=== PATIENT | female | born 1950 | race American Indian/Alaskan Native ===

== ENCOUNTER 2018-11-19 12:27 | Outpatient (CLI) | payer MEDICARE | END 2018-11-19 12:28 | disposition home or self-care (01) | LOC: LAB 12:27 ==

== ENCOUNTER 2019-01-06 17:01 | Observation (INO) | payer MEDICARE ==
[2019-01-06 17:01] VITALS: BMI 36.8
[2019-01-06 18:09] LABS: BASO # 0.01 K/mm3 (0.0-2.0); BASO % 0.1 % (0.0-3.0); EOS # 0.2 (0.0-0.7); EOS % 3.3 % (1.5-5.0); HEMOGLOBIN 9.6 g/dL (12.0-16.0); LYMPH # 1.5 (1.2-3.4); LYMPH % 22.9 % (22.0-35.0); MEAN CELL VOLUME 89.6 fl (80.0-105.0); MEAN CORPUSCULAR HEMOGLOBIN 27.8 pg (25.0-35.0); MEAN CORPUSCULAR HGB CONC 31.1 g/dl (31.0-37.0); MEAN PLATELET VOLUME 10.4 fl (7.0-11.0); MONO # 0.4 (0.1-0.6); RBC 3.45 10^6/uL (3.5-6.1); RED CELL DISTRIBUTION WIDTH 17.6 % (11.5-14.5); WHITE BLOOD COUNT 6.7 10^3/uL (4.5-11.0)
[2019-01-06 18:16] LABS: INR 1.1; PARTIAL THROMBOPLASTIN TIME 35.1 Seconds (26.9-38.3); PROTHROMBIN TIME 12.2 SECONDS (9.4-12.5)
[2019-01-06 18:18] LABS: ALB/GLOB RATIO 0.9 (1.1-1.8); ALBUMIN 3.6 g/dL (3.0-4.8); AST/SGOT 32 U/L (14-36); BLOOD UREA NITROGEN 37 mg/dL (7-21); CALCIUM 9.6 mg/dL (8.4-10.5); GFR NON-AFRICAN AMERICAN 26
[2019-01-06 18:30] LABS: ALT/SGPT < 6 U/L (7-56); B-TYPE NATRIURETIC PEPTIDE 749 pg/mL (0-450); TROPONIN I 0.02 ng/mL
[2019-01-06 18:52] LABS: URINE BILIRUBIN NEGATIVE (NEGATIVE); URINE BLOOD NEGATIVE (NEGATIVE); URINE GLUCOSE (UA) NEGATIVE (NEGATIVE); URINE LEUKOCYTE ESTERASE NEGATIVE Leu/uL (NEGATIVE); URINE PROTEIN 100 mg/dL (<30 mg/dL); URINE UROBILINOGEN 0.2 E.U./dL (<1 E.U./dL)
[2019-01-06 18:53] LABS: URINE APPEARANCE CLEAR (CLEAR); URINE COLOR LIGHT YELLOW (YELLOW)
[2019-01-06 19:12] LABS: URINE RBC 0 - 2 /hpf (0-2)
[2019-01-06 19:13] LABS: URINE BACTERIA TRACE /hpf
--- NOTE | 2019-01-06 20:29 | ED PDOC ---
Arrival/HPI - General Chief Complaint: Abnormal Labs Time Seen by Provider: 01/06/19 17:09 Historian: Patient - History of Present Illness Narrative History of Present Illness (Text): 01/06/19 20:26 68-year-old female with a history of stroke one month ago presents today sent in by a tiarra for elevated troponins. Patient states she the past 3 days she's been having some intermittent and chest pressure no abdominal pain. No nausea vomiting diarrhea or constipation. Patient denies headaches or dizziness. Patient denies any chest pain at present time. Past Medical History - Provider Review Nursing Documentation Reviewed: Yes - Travel History Have you recently traveled outside [place] w/in the past 3 mons?: No - Infectious Disease Hx of Infectious Diseases: None - Tetanus Immunization Tetanus Immunization: Unknown - Reproductive Menopause: Yes - Cardiac Hx Hypertension: Yes Hx Peripheral Edema: Yes (+2 ble pitting) - Pulmonary Hx Asthma: Yes Hx Chronic Obstructive Pulmonary Disease (COPD): Yes Hx Pneumonia: Yes (11 yrs ago) Hx Sleep Apnea: Yes (cpap) - Neurological Hx Seizures: Yes (LAST AGE 19) Hx Transient Ischemic Attacks (TIA): Yes (02/2016 No hospitilization) - HEENT Hx HEENT Disorder: Yes (USING READING GLASSES) 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], RIGHT EYE PARTIAL BLIND) - Renal Hx Renal Disorder: Yes - Endocrine/Metabolic Hx Hyperthyroidism: No - Hematological/Oncological Hx Anemia: Yes (Blood transfusion 2014) - Integumentary Hx Dermatological Disorder: No - Musculoskeletal/Rheumatological Hx Arthritis: Yes - Gastrointestinal Hx Gastrointestinal Ulcer: No - Psychiatric Hx Anxiety: Yes Hx Depression: Yes Hx Substance Use: No - Surgical History Hx Coronary Stent: Yes - Anesthesia Hx Anesthesia: Yes Hx Anesthesia Reactions: No Hx Malignant Hyperthermia: No - Suicidal Assessment Feels Threatened In Home Enviroment: No Family/Social History - Physician Review Nursing Documentation Reviewed: Yes Family/Social History: Unknown Family HX Smoking Status: Never Smoked Hx Alcohol Use: No Hx Substance Use: No Allergies/Home Meds Allergies/Adverse Reactions: Allergies levofloxacin [From Levaquin] Allergy (Verified 01/06/19 17:14) RASH shellfish derived Allergy (Verified 01/06/19 17:14) RASH morphine Adverse Reaction (Intermediate, Verified 01/06/19 17:14) FATIGUE Confirmed with patient, never had allergic reaction, felt unwell/fatigued after large dose of morphine Home Medications: Home Meds Medication Instructions Recorded Confirmed Folic Acid 1 mg GT DAILY 08/22/17 01/06/19 Linagliptin [Tradjenta] 5 mg GT DAILY 08/22/17 01/06/19 traMADol [Ultram] 1 tab GT PRN PRN 06/29/18 01/06/19 Valsartan [Diovan] 80 mg GT DAILY 09/17/18 01/06/19 Acetaminophen [Tylenol] 650 mg GT PRN 01/06/19 01/06/19 Aspirin [Aspirin EC] 81 mg GT DAILY 01/06/19 01/06/19 Atorvastatin Calcium 80 mg GT DAILY 01/06/19 01/06/19 Carvedilol [Coreg] 25 mg GT BID 01/06/19 01/06/19 Febuxostat [Uloric] 40 mg GT DAILY 01/06/19 01/06/19 Heparin [Heparin (RENAL)] 5,000 units SC Q8 01/06/19 01/06/19 Heparin [Heparin (RENAL)] 5,000 units SC Q8 01/06/19 01/06/19 Insulin Lispro [humALOG] 01/06/19 Isosorbide Mononitrate [Ismo] 20 mg GT TID 01/06/19 01/06/19 Lactobacillus Acidophilus 1 tab GT Q12 01/06/19 01/06/19 [Lactobacillus] Loperamide [Loperamide HCl] 2 mg GT PRN 01/06/19 01/06/19 Magnesium Hydroxide [Milk Of 400 mg GT PRN 01/06/19 01/06/19 Magnesia] Mylanta 01/06/19 NIFEdipine [Procardia] 40 mg GT Q6 01/06/19 01/06/19 Naphazoline/Pheniramine Opht 2 drop OU PRN 01/06/19 01/06/19 [Naphcon-A 0.025%-0.3% 15 Ml] Pantoprazole [Protonix] 40 mg GT DAILY 01/06/19 01/06/19 cloNIDine [Catapres] 0.1 mg GT DAILY 01/06/19 01/06/19 hydrALAZINE [Apresoline] 100 mg GT Q8 01/06/19 01/06/19 Review of Systems - Review of Systems Constitutional: absent: Fatigue, Fevers Respiratory: absent: SOB, Cough Cardiovascular: Chest Pain. absent: Palpitations Gastrointestinal: absent: Abdominal Pain, Constipation, Diarrhea, Nausea, Vomiting Musculoskeletal: absent: Back Pain, Neck Pain Skin: absent: Rash, Pruritis Neurological: absent: Headache, Dizziness Psychiatric: absent: Anxiety, Depression Physical Exam Vital Signs Reviewed: Yes Vital Signs Temp Pulse Resp BP Pulse Ox 01/06/19 18:32 83 20 192/94 H 100 01/06/19 17:02 97.9 F 85 20 202/96 H 100 Temperature: Afebrile Blood Pressure: Hypertensive Pulse: Regular Respiratory Rate: Normal Appearance: Positive for: Well-Appearing, Non-Toxic, Comfortable Pain Distress: None Mental Status: Positive for: Alert and Oriented X 3 - Systems Exam Head: Present: Atraumatic Mouth: Present: Moist Mucous Membranes Respiratory/Chest: Present: Clear to Auscultation Cardiovascular: Present: Regular Rate and Rhythm Abdomen: No: Tenderness, Distention, Rebound, Guarding Upper Extremity: Present: Normal ROM Lower Extremity: Present: Normal ROM. No: Tenderness Neurological: Present: GCS=15 Skin: Present: Warm, Dry, Normal Color Psychiatric: Present: Alert, Oriented x 3 Medical Decision Making ED Course and Treatment: 01/06/19 23:01 68yr old female sent in for chest painx 3 days. denies cp currently. cbc; hcg; 9.6 cmp: bun 37 cr: 1.9 trop; 0.02 bnp; 749 ekg' normal sinus rhythm at 84 bpm normal axis no ST elevations QTC 420 cxr; no infiltrate. pt given 10mg hydralizine ivp for hypertension asa given via PEG tylenol given via PEG case discussed with dr. klein. accepts observational status admission for cp. all results discussed with patient and her sister at bedside. impression: chest pain admit tele obs. - Lab Interpretations Lab Results: PT 12.2 SECONDS (9.4-12.5) 01/06/19 17:45 INR 1.10 01/06/19 17:45 APTT 35.1 Seconds (26.9-38.3) 01/06/19 17:45 Troponin I 0.02 ng/mL 01/06/19 17:45 NT-Pro-B Natriuret Pep 749 pg/mL (0-450) H 01/06/19 17:45 Total Bilirubin 0.2 mg/dL (0.2-1.3) 01/06/19 17:45 AST 32 U/L (14-36) 01/06/19 17:45 ALT < 6 U/L (7-56) L 01/06/19 17:45 Alkaline Phosphatase 127 U/L (38-126) H D 01/06/19 17:45 Total Protein 7.5 g/dL (5.8-8.3) 01/06/19 17:45 Albumin 3.6 g/dL (3.0-4.8) 01/06/19 17:45 Globulin 3.8 gm/dL 01/06/19 17:45 Albumin/Globulin Ratio 0.9 (1.1-1.8) L 01/06/19 17:45 Urine Color Light yellow (YELLOW) 01/06/19 18:30 Urine Appearance Clear (CLEAR) 01/06/19 18:30 Urine pH 8.0 (4.7-8.0) 01/06/19 18:30 Ur Specific [place] 1.025 (1.005-1.035) 01/06/19 18:30 Urine Protein 100 mg/dL (<30 mg/dL) H 01/06/19 18:30 Urine Glucose (UA) Negative mg/dL (NEGATIVE) 01/06/19 18:30 Urine Ketones Negative mg/dL (NEGATIVE) 01/06/19 18:30 Urine Blood Negative (NEGATIVE) 01/06/19 18:30 Urine Nitrate Negative (NEGATIVE) 01/06/19 18:30 Urine Bilirubin Negative (NEGATIVE) 01/06/19 18:30 Urine Urobilinogen 0.2 E.U./dL (<1 E.U./dL) 01/06/19 18:30 Ur Leukocyte Esterase Negative [place]/uL (NEGATIVE) 01/06/19 18:30 Urine RBC 0 - 2 /hpf (0-2) 01/06/19 18:30 Urine WBC 1 - 3 /hpf (0-6) 01/06/19 18:30 Ur Epithelial Cells 1 - 3 /hpf (0-5) 01/06/19 18:30 Urine Bacteria Trace /hpf (NONE) 01/06/19 18:30 Urine Other Uyeast /hpf 01/06/19 18:30 - RAD Interpretation Radiology Orders: 01/06/19 17:15 CHEST PORTABLE [RAD] Stat - Medication Orders Current Medication Orders: Aspirin (Aspirin Supp) 300 mg RC STAT STA Stop: 01/06/19 20:23 Hydralazine HCl (Apresoline) 10 mg IVP STAT STEVE Disposition/Present on Arrival - Present on Arrival Any Indicators Present on Arrival: Yes History of DVT/PE: No History of Uncontrolled Diabetes: Yes Urinary Catheter: No History of Decub. Ulcer: No History Surgical Site Infection Following: None - Disposition Have Diagnosis and Disposition been Completed?: Yes Diagnosis: Chest pain, Renal insufficiency Disposition: HOSPITALIZED Disposition Time: 20:27 Patient Plan: Observation, Telemetry Condition: FAIR
--- NOTE | 2019-01-06 22:37 | CARD ---
APPROVED REPORT Date of service: 01/06/2019 EKG Measurement Heart [id number] <Conclusion> Normal sinus rhythm Septal infarct, age undetermined T wave abnormalities Abnormal ECG
--- NOTE | 2019-01-07 03:08 | HP ---
DATE OF EXAM: 01/06/2019 HISTORY OF PRESENT ILLNESS: I know Guera from [facility]. She had chest pain a few days ago, it came less than like 10 to 15 minutes, it was something new for her. I ordered troponin, just to make sure whether I am missing anything and I got a call that it was positive with 0.2, I sent her to the emergency room at [facility]. She is a 68-year-old female with history of stroke one month ago. She has been in [facility]. She has elevated troponins because she has some intermittent chest pain, nothing specific for the heart just right-sided chest pain. No nausea or vomiting. No sweating. She can move all extremities well, started to walk through the day. Not short of breath. 5 to 10 minutes and was on the right side. She has hypertension, peripheral edema with 2+ pitting edema. She has COPD, pneumonia 11 years ago. She has CPAP and sleep apnea, seizures, TIAs, and reading glasses. 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 FAMILY HISTORY: Unknown family history. SOCIAL HISTORY: No smoking. No drinking. No drugs. ALLERGIES: ALLERGIC TO LEVAQUIN, SHELLFISH, MORPHINE, SOME FOLIC ACID, TRADJENTA, ULTRAM, DIOVAN, TYLENOL, ASPIRIN, CALCIUM, COREG, ULORIC, HEPARIN, INSULIN, IMDUR, , IMODIUM NEEDED, MILK OF MAGNESIA, MYLANTA, PROCARDIA, F-CON, PROTONIX, CATAPRES, AND APRESOLINE. REVIEW OF SYSTEMS: She is not fatigued. No fever. No shortness of breath or cough. She did have chest pain, but none now. No palpitations. It was right-sided chest pain. No abdominal pain. No constipation, diarrhea, nausea, or vomiting. No back pain or neck pain. No itching. No rashes. No headache. No dizziness. No anxiety or depression. PHYSICAL EXAMINATION: GENERAL: She is well-appearing, nontoxic, comfortable at this time. Alert and oriented x3. Smiling. VITAL SIGNS: 97.9 temperature, 85 pulse, 20 respiratory rate, 202/96 blood pressure, and 100% O2 saturation. HEENT: Head is atraumatic and normocephalic. Teeth poor repair. Throat is moist. NECK: Supple. HEART: Regular rate. LUNGS: Decreased breath sounds, but clear. ABDOMEN: Soft. Positive feeding tube. EXTREMITIES: No edema. SKIN: Warm and dry. NEUROLOGIC: GCS is 15. Cranial nerves II through XII grossly intact. Alert and oriented x3. LYMPHS: Thyroid midline. No palpable appreciable lymphadenopathy. LABORATORY DATA: She had multiple tests done. White count 6.7, hemoglobin 9.6, hematocrit 38.9 with 399 platelets. INR is 1.1. Sodium 137, potassium 5.3, BUN 37, and creatinine 1.9. She is also little bit renal insufficient with magnesium of 2.3. AST is 32, ALT is 6, and alk phos 127. Lactate dehydrogenase is 596. Troponin I was 0.02 here. BNP was high at 749, so she has little bit of CHF with renal insufficiency. Urine was clean. Chest x-ray is pending. ASSESSMENT AND PLAN: She will be on observation of troponin every 8 hours x2 more and she will be back on her medications. Dr. Duque Cardiology consult. Hopefully, she will do well in the next 24 hours. She is here chest pain, CHF, and renal insufficiency. Mathieu Odell DO MTDD
[2019-01-07 06:56] VITALS: O2SAT 99
[2019-01-07 07:21] LABS: HEMOGLOBIN 9.2 g/dL (12.0-16.0); MEAN CORPUSCULAR HEMOGLOBIN 27.6 pg (25.0-35.0); MEAN CORPUSCULAR HGB CONC 30.4 g/dl (31.0-37.0); MEAN PLATELET VOLUME 10.9 fl (7.0-11.0); RBC 3.33 10^6/uL (3.5-6.1); RED CELL DISTRIBUTION WIDTH 17.4 % (11.5-14.5); WHITE BLOOD COUNT 6.1 10^3/uL (4.5-11.0)
[2019-01-07 07:43] LABS: TROPONIN I 0.03 ng/mL
[2019-01-07 07:45] LABS: ALB/GLOB RATIO 0.9 (1.1-1.8); ALBUMIN 3.4 g/dL (3.0-4.8); CALCIUM 9.8 mg/dL (8.4-10.5)
--- NOTE | 2019-01-07 08:10 | RAD ---
Date of service: 01/06/2019 HISTORY: abnl labs COMPARISON: 09/26/2018 FINDINGS: LUNGS: No active pulmonary disease. PLEURA: No significant pleural effusion identified, no pneumothorax apparent. CARDIOVASCULAR: Aortic tortuosity Mild cardiomegaly. No pulmonary vascular congestion. OSSEOUS STRUCTURES: No significant abnormalities. VISUALIZED UPPER ABDOMEN: Normal. OTHER FINDINGS: None. IMPRESSION: No active disease.
[2019-01-07] MEDS ORDERED: Non Formulary Medication (Valsartan [Diovan] 80 MG) GT SCH (10:00)
[2019-01-07 12:26] VITALS: BP 225/95
--- NOTE | 2019-01-07 12:45 | CON ---
DATE OF CONSULTATION: 01/07/2019 CARDIOLOGY CONSULTATION HISTORY: The patient is a 68-year-old woman, who presented with occasional chest discomfort. PAST MEDICAL HISTORY: The patient's past medical history is notable for accelerated hypertension, which has finally been controlled recently. The patient's cardiac status includes a PTCA and stent in the past. She underwent a stress test in March of this year, which was unremarkable. The stress test revealed normal SPECT myocardial study with an ejection fraction of 79%. She has suffered from renal insufficiency as well as a CVA and is currently in a residential facility. She currently is depressed, but is chest pain free. She denies shortness of breath. She also suffers from diabetes mellitus. SOCIAL HISTORY: The patient does not smoke. REVIEW OF SYSTEMS: Review of systems is dominated by her depression from her CVA. PHYSICAL EXAMINATION: VITAL SIGNS: Her blood pressure is 143/87, heart rate is in the 80s. NECK: Negative JVD. LUNGS: Without rales. CARDIAC: Heart rate S1, S2. EXTREMITIES: Without edema. LABORATORY DATA: EKG shows no acute changes. Laboratories include a hemoglobin of 9.2. Chemistries, BUN and creatinine of 32 and 2. Troponins are negative x3. IMPRESSION: 1. Atypical chest pain. 2. No evidence for acute coronary syndrome. 3. Recent stress test, which is unremarkable. 4. Coronary artery disease. 5. Accelerated hypertension. 6. History of coronary artery disease. 7. Renal insufficiency. 8. Diabetes mellitus. 9. Hypercholesterolemia. PLAN: Given these findings, there is no evidence for acute coronary syndrome. No further cardiac workup is necessary at this time. Austin Duque MD
[2019-01-07 12:57] VITALS: PULSE 82; RESP 18; TEMP 98.8
--- NOTE | 2019-01-07 23:40 | DS ---
HISTORY OF PRESENT ILLNESS: She came in with a history of 3 days ago having a chest pain that lasted 5 minutes on the right side and went away at the [facility]. No pressure. No sweating, just pain. We did a troponin, I get a call that it was positive from the laboratory and send her to the ER and right now the troponins are 0.02, 0.03, and 0.03. She has no chest pain right now. She is comfortable. LABORATORY DATA: She has sodium 139, potassium 4.8, BUN 32, creatinine 2, GFR is 25, sugar is 90, calcium is 9.8, and total bili is 0.2. AST is 23, ALT is 9, alk phos 117, and total protein 7.1. Urine was trace. INR is 1.1. White count 6.1, hemoglobin 9.2, hematocrit 30.3, and platelets of 395. She has a consult with Cardiology. I am hoping that we can discharge her back to [facility] where she is getting rehab, okay with Cardiology. She has no chest pain. troponins were normal. EKG did show an old infarct, but does have a history of stents placement and issues in the past. We will see what Dr. Duque, the brick handler has to say, but if okay, I will discharge her back to [facility] today. She was here for chest pain. Mathieu Odell DO MTDIsaac
== END 2019-01-07 14:06 ==
LOC: ED 17:01 → ERH 22:14 → 2RNO 23:58
PROVIDERS: ADMIT Family Medicine; ATTEND Family Medicine
DX: R07.89 Other chest pain (principal); I11.0 Hypertensive heart disease with heart failure; N28.9 Disorder of kidney and ureter, unspecified; D64.9 Anemia, unspecified; E11.9 Type 2 diabetes mellitus without complications; E78.00 Pure hypercholesterolemia, unspecified; G47.30 Sleep apnea, unspecified; H54.7 Unspecified visual loss; I25.10 Atherosclerotic heart disease of native coronary artery without angina pectoris; I50.9 Heart failure, unspecified; J44.9 Chronic obstructive pulmonary disease, unspecified; R56.9 Unspecified convulsions; Z86.73 Personal history of transient ischemic attack (TIA), and cerebral infarction without residual deficits; Z87.01 Personal history of pneumonia (recurrent); Z95.5 Presence of coronary angioplasty implant and graft; Z88.8 Allergy status to other drugs, medicaments and biological substances; Z88.6 Allergy status to analgesic agent; Z88.1 Allergy status to other antibiotic agents; Z88.5 Allergy status to narcotic agent; Z91.013 Allergy to seafood
CPT/HCPCS: 36415; 71045; 80053; 81001; 82550; 83615; 83735; 83880; 84484; 85025; 85027; 85610; 85730; 93005; 96372; 96374; 97162; C9113; G0378; G8978; G8979; J0360; J1644; J1940

== ENCOUNTER 2019-03-21 11:53 | Inpatient (IN) | payer MEDICARE ==
[2019-03-21 11:58] VITALS: BMI 33.5
--- NOTE | 2019-03-21 12:07 | ED PDOC ---
Arrival/HPI - General Time Seen by Provider: 03/21/19 11:56 Historian: [facility], EMS - History of Present Illness Narrative History of Present Illness (Text): 03/21/19 12:05 68 year old female, whose past medical history includes CVA, CAD, and diabetes, brought in by EMS from [facility] to the emergency department for fever. At [facility], patient was found to be febrile at 101.2F this morning. Patient was given Tylenol and temperature went down to 99F. According to EMS, patient was found to be comfortable and was immediately placed on supplemental oxygen via [place] and brought to the hospital. PCP:Dr. Odell Time/Duration: Prior to Arrival Symptom Onset: Sudden Symptom Course: Unchanged Quality: Unable to Describe Activities at Onset: Rest Context: Home, Other ([facility]) Past Medical History - Provider Review Nursing Documentation Reviewed: Yes - Travel History Have you recently traveled outside [place] w/in the past 3 mons?: No - Infectious Disease Hx of Infectious Diseases: None - Tetanus Immunization Tetanus Immunization: Unknown - Cardiac Hx Congestive Heart Failure: Yes - Pulmonary Hx Chronic Obstructive Pulmonary Disease (COPD): Yes - Neurological Hx Neurological Disorder: Yes Hx Alzheimer's Disease: No HX Cerebrovascular Accident: Yes Hx Dementia: No Hx Dizziness: No Hx Meningitis: No Hx Migraine: No Hx Parkinson's Disease: No Hx Seizures: No Hx Transient Ischemic Attacks (TIA): Yes - HEENT Hx HEENT Disorder: Yes Hx Blind: Yes ((L) eye) Hx Cataracts: No Hx Deafness: No Hx Difficulty Chewing: No Hx Glaucoma: No Hx Macular Degeneration: No - Renal Hx Renal Disorder: No Hx Dialysis: No Hx Kidney Stones: No Hx Neurogenic Bladder: No Hx Pyelonephritis: No Hx Renal Cancer: No Hx Renal Failure: No Other/Comment: right kidney mass removed - Endocrine/Metabolic Hx Endocrine Disorders: Yes Hx Adrenal Cancer: No Hx Diabetes Insipidus: No Hx Diabetes Mellitus Type 1: No Hx Diabetes Mellitus Type 2: Yes Hx Hyperthyroidism: No Hx Hypothyroidism: No Hx Systemic Lupus Erythematosus: No - Hematological/Oncological Hx Blood Disorders: No Hx AIDS: No Hx Anemia: No Hx Cancer: No Hx Chemotherapy: No Hx Cirrhosis: No Hx Hemophilia: No Hx Hepatitis A: No Hx Hepatitis B: No Hx Hepatitis C: No Hx Metastasis: No Hx Shingles: No Hx Sickle Cell Disease: No Hx Unexplained Bleeding: No - Integumentary Hx Dermatological Disorder: No Hx Basal Cell Carcinoma: No Hx Eczema: No Hx Melanoma: No Hx Psoriasis: No Hx Squamous Cell Carcinoma: No - Musculoskeletal/Rheumatological Hx Arthritis: Yes - Gastrointestinal Hx Gastrointestinal Disorders: Yes (PEG tube) Hx Colostomy: No Hx Crohn's Disease: No Hx Diverticulitis: No Hx Gall Bladder Disease: No Hx Gastroesophageal Reflux: No Hx Gastrointestinal Ulcer: No Hx Ileostomy: No Hx Liver Failure: No Hx Pancreatitis: No HX Swallowing Problems: No - Genitourinary/Gynecological Hx Genitourinary Disorders: Yes Hx Hematuria: No Hx Incontinence: Yes Hx Prostate Problems: No Hx Sexually Transmitted Diseases: No Hx Urinary Tract Infection: No - Psychiatric Hx Psychophysiologic Disorder: Yes Hx Anxiety: Yes Hx Bipolar Disorder: No Hx Depression: Yes Hx Emotional Abuse: No Hx Hallucinations: No Hx Panic Disorder: No Hx Paranoia: No Hx Post Traumatic Stress Disorder: No Hx Psychosis: No Hx Physical Abuse: No Hx Schizophrenia: No Hx Sexual Abuse: No Hx Substance Use: No - Surgical History Hx Amputation: No Hx Appendectomy: No Hx Cardiac Catheterization: Yes (2 stents) Hx Cholecystectomy: No Hx Coronary Stent: No Hx Gastric Bypass Surgery: No Hx Hysterectomy: Yes Hx Inguinal Hernia Repair: No Hx Joint Replacement: No Hx Kidney Transplant: No Hx Liver Transplant: No Hx Mastectomy: No Hx Musculoskeletal Surgery: No Hx Open Heart Surgery: No Hx Orthopedic Surgery: No Hx Splenectomy: No Hx Valve Replacement: No - Anesthesia Hx Anesthesia: Yes Hx Anesthesia Reactions: No Hx Malignant Hyperthermia: No - Suicidal Assessment Feels Threatened In Home Enviroment: No Family/Social History - Physician Review Nursing Documentation Reviewed: Yes Family/Social History: No Known Family HX Smoking Status: Never Smoked Hx Alcohol Use: No Hx Substance Use: No Allergies/Home Meds Allergies/Adverse Reactions: Allergies levofloxacin [From Levaquin] Allergy (Verified 03/21/19 11:58) RASH shellfish derived Allergy (Verified 03/21/19 11:58) RASH morphine Adverse Reaction (Intermediate, Verified 03/21/19 11:58) FATIGUE Confirmed with patient, never had allergic reaction, felt unwell/fatigued after large dose of morphine Home Medications: Home Meds Medication Instructions Recorded Confirmed Folic Acid 1 mg GT DAILY 08/22/17 01/06/19 Linagliptin [Tradjenta] 5 mg GT DAILY 08/22/17 01/06/19 traMADol [Ultram] 1 tab GT PRN PRN 06/29/18 01/06/19 Valsartan [Diovan] 80 mg GT DAILY 09/17/18 01/06/19 Acetaminophen [Tylenol] 650 mg GT PRN 01/06/19 01/06/19 Aspirin [Aspirin EC] 81 mg GT DAILY 01/06/19 01/06/19 Atorvastatin Calcium 80 mg GT DAILY 01/06/19 01/06/19 Carvedilol [Coreg] 25 mg GT BID 01/06/19 01/06/19 Febuxostat [Uloric] 40 mg GT DAILY 01/06/19 01/06/19 Heparin [Heparin (RENAL)] 5,000 units SC Q8 01/06/19 01/06/19 Heparin [Heparin (RENAL)] 5,000 units SC Q8 01/06/19 01/06/19 Insulin Lispro [humALOG] 01/06/19 Isosorbide Mononitrate [Ismo] 20 mg GT TID 01/06/19 01/06/19 Lactobacillus Acidophilus 1 tab GT Q12 01/06/19 01/06/19 [Lactobacillus] Loperamide [Imodium] 2 mg GT PRN 01/06/19 01/06/19 Magnesium Hydroxide [Milk Of 400 mg GT PRN 01/06/19 01/06/19 Magnesia] Mylanta 01/06/19 NIFEdipine [Procardia] 40 mg GT Q6 01/06/19 01/06/19 Naphazoline/Pheniramine Opht 2 drop OU PRN 01/06/19 01/06/19 [Naphcon-A Opht] Pantoprazole [Protonix EC Tab] 40 mg GT DAILY 01/06/19 01/06/19 cloNIDine [Catapres] 0.1 mg GT DAILY 01/06/19 01/06/19 hydrALAZINE [Apresoline] 100 mg GT Q8 01/06/19 01/06/19 Review of Systems - Physician Review All systems were reviewed & negative as marked: Yes - Review of Systems Constitutional: Fevers Respiratory: absent: SOB Physical Exam Pulse: Tachycardic Appearance: Positive for: Well-Appearing, Non-Toxic, Comfortable Pain Distress: None Mental Status: Positive for: Alert and Oriented X 3 - Systems Exam Head: Present: Atraumatic, Normocephalic Pupils: Present: PERRL Extroacular Muscles: Present: EOMI Conjunctiva: Present: Normal Mouth: Present: Dry Respiratory/Chest: Present: Rhonchi, Other (coarse breath sounds bilaterally). No: Wheezes, Rales Cardiovascular: Present: Tachycardic Abdomen: Present: Other (PEG tube in-place in abdomen). No: Tenderness (no tenderness to palpation), Distention, Peritoneal Signs Upper Extremity: Present: Normal Inspection. No: Cyanosis, Edema Lower Extremity: Present: Edema (2+ pitting edema bilaterally), Capillary Refill < 2 s Neurological: Present: GCS=15, CN II-XII Intact, Speech Normal Skin: Present: Warm, Dry, Normal Color. No: Rashes Psychiatric: Present: Alert, Oriented x 3, Normal Insight, Normal Concentration Medical Decision Making ED Course and Treatment: 03/21/19 12:06 Impression: 68 year old female with fever. Plan: -- Chest X-ray -- Labs -- IV Fluids -- Blood Culture -- Urine Culture -- Venous Blood Gas -- Urinalysis --Zosyn --Vancomycin --Duonebs --Solumedrol -- Reassess and disposition Prior Visits: Notes and results from previous visits were reviewed. Patient was last seen here in the emergency department on 01/06/2019 for some intermittent chest pressure with no abdominal pain. Patient was admitted. Progress Notes: 03/21/19 13:00 Tachycardia of 97 with leukocytosis of 13.1 fufilling SIRS criteria. Hgb noted to be 7.9(previously 9), but patient denies active bleeding. Hyperkalemia of 5.4 with no EKG chnages. CXR reveals RLL infiltrate worrisome for PNA. Due to localized source and SIRS criteria eligibility, CODE SEPSIS is called. Antibiotics ordered with 30cc/kg bolus ordered. Spoke to Dr. Odell(PCP) who accepts - Lab Interpretations Lab Results: 03/21/19 12:00 03/21/19 12:00 Lab Results 03/21/19 12:30: pO2 49, VBG pH 7.40, VBG pCO2 38.0 L, VBG HCO3 23.5, VBG Total CO2 24.7, VBG O2 Sat (Calc) 89.9 H, VBG Base Excess -1.1 L, VBG Potassium 6.6 H* , Glucose 97, Lactate 0.7, FiO2 21.0, Crit Value Called To Dr umanzor, Crit Value Called By Mrp, Blood Gas Notified Time 1242, Sodium 137.0, Chloride 110.0 H, Venous Blood Potassium 6.6 H* 03/21/19 12:09: POC Glucose (mg/dL) 114 H 03/21/19 12:00: Sodium 142, Potassium 5.4 H, Chloride 109 H, Carbon Dioxide 22, Anion Gap 17, BUN 63 H, Creatinine 2.9 H, Est GFR ( Amer) 20, Est GFR (Non-Af Amer) 16, Random Glucose 104, Calcium 9.7, Phosphorus 4.6 H, Magnesium 2.4 H, Total Bilirubin 0.3, AST 22, ALT 11, Alkaline Phosphatase 68, Troponin I < 0.01 D, NT-Pro-B Natriuret Pep 495 H, Total Protein 7.7, Albumin 3.8, Globulin 3.9, Albumin/Globulin Ratio 1.0 L 03/21/19 12:00: PT 12.6 H, INR 1.12, APTT 31.9 03/21/19 12:00: WBC 13.1 H D, RBC 2.81 L, Hgb 7.9 L, Hct 25.1 L, MCV 89.3, MCH 2 8.1, MCHC 31.5, RDW 16.6 H, Plt Count 351, MPV 11.0, Neut % (Auto) 79.7 H, Lymph % (Auto) 12.2 L, [place] % (Auto) 7.3 H, Eos % (Auto) 0.7 L, Baso % (Auto) 0.1, Lymph # (Auto) 1.6, [place] # (Auto) 1.0 H, Eos # (Auto) 0.1, Baso # (Auto) 0.01, Absolute Neuts (auto) 10.43 H I have reviewed the lab results: Yes - RAD Interpretation Narrative RAD Interpretations (Text): 03/21/2019 12:50 Chest X-ray IMPRESSION: Right lower lobe infiltrate, probable pneumonia. Dictator: Zachary Carrasco MD - Scribe Statement The provider has reviewed the documentation as recorded by the Rivka Chapman Provider Scribe Attestation: All medical record entries made by the Scribe were at my direction and personally dictated by me. I have reviewed the chart and agree that the record accurately reflects my personal performance of the history, physical exam, medical decision making, and the department course for this patient. I have also personally directed, reviewed, and agree with the discharge instructions and disposition. Disposition/Present on Arrival - Present on Arrival Any Indicators Present on Arrival: No History of DVT/PE: No History of Uncontrolled Diabetes: No Urinary Catheter: No History Surgical Site Infection Following: None - Disposition Have Diagnosis and Disposition been Completed?: Yes Diagnosis: PNA (pneumonia), Sepsis Disposition: HOSPITALIZED Disposition Time: 13:30 Patient Plan: Admission Patient Problems: Current Active Problems Problem Status Onset PNA (pneumonia) Acute Sepsis Acute Condition: GUARDED
[2019-03-21] MEDS ORDERED: Sodium Chloride 0.9% 1,000 ML IV STA (12:13)
[2019-03-21] MEDS: Albuterol-Ipratrop 3 mg / 0.5 (3 ml) UD IH SCH ×3 (12:40→13:50)
[2019-03-21 12:42] LABS: VENOUS BLOOD GAS BASE EXCESS -1.1 mmol/L (0.0-2.0); VENOUS BLOOD GAS PO2 49 mm/Hg (30-55)
[2019-03-21 12:49] LABS: BASO # 0.01 K/mm3 (0.0-2.0); BASO % 0.1 % (0.0-3.0); EOS # 0.1 (0.0-0.7); EOS % 0.7 % (1.5-5.0); HEMOGLOBIN 7.9 g/dL (12.0-16.0); LYMPH # 1.6 (1.2-3.4); LYMPH % 12.2 % (22.0-35.0); MEAN CELL VOLUME 89.3 fl (80.0-105.0); MEAN CORPUSCULAR HEMOGLOBIN 28.1 pg (25.0-35.0); MEAN CORPUSCULAR HGB CONC 31.5 g/dl (31.0-37.0); MONO % 7.3 % (1.0-6.0); RBC 2.81 10^6/uL (3.5-6.1); RED CELL DISTRIBUTION WIDTH 16.6 % (11.5-14.5); WHITE BLOOD COUNT 13.1 10^3/uL (4.5-11.0)
--- NOTE | 2019-03-21 12:50 | RAD ---
Date of service: 03/21/2019 HISTORY: Sepsis Patient COMPARISON: No prior. TECHNIQUE: 1 view obtained. FINDINGS: LUNGS: Infiltrate at the right lung base PLEURA: No significant pleural effusion identified, no pneumothorax apparent. CARDIOVASCULAR: No aortic atherosclerotic calcification present. Normal cardiac size. No pulmonary vascular congestion. OSSEOUS STRUCTURES: No significant abnormalities. VISUALIZED UPPER ABDOMEN: Normal. OTHER FINDINGS: None. IMPRESSION: Right lower lobe infiltrate, probable pneumonia
[2019-03-21 12:57] LABS: ALBUMIN 3.8 g/dL (3.0-4.8); ALT/SGPT 11 U/L (7-56); AST/SGOT 22 U/L (14-36); BLOOD UREA NITROGEN 63 mg/dL (7-21); CALCIUM 9.7 mg/dL (8.4-10.5); GFR NON-AFRICAN AMERICAN 16; INR 1.12; PARTIAL THROMBOPLASTIN TIME 31.9 Seconds (26.9-38.3); PROTHROMBIN TIME 12.6 SECONDS (9.4-12.5)
[2019-03-21] MEDS ORDERED: Piperacill/Tazo 4.5gm in NS 4.5 GM/100 ML BAG IVPB STA (12:59)
[2019-03-21] MEDS ORDERED: Vancomycin 1gm in NS 250ml 1 GM/250 ML BAG IVPB STA (12:59)
[2019-03-21 13:08] LABS: B-TYPE NATRIURETIC PEPTIDE 495 pg/mL (0-450); TROPONIN I < 0.01 ng/mL
[2019-03-21] MEDS ORDERED: Dextrose 50% SYRINGE Inj (50 ml) IVP STA (13:12)
[2019-03-21] MEDS ORDERED: Insulin Regular 1 UNITS/0.01 ML ML SC STA (13:12)
[2019-03-21] MEDS ORDERED: Albuterol 0.083% Inhal Sol (2.5 mg/3 mL) UD INH STA (13:12)
[2019-03-21] MEDS ORDERED: Sodium Bicarbonate (8.4%) 50 Meq Syringe IVP ONE ×2 (13:12→13:36)
[2019-03-21] MEDS ORDERED: Insulin Lispro (humaLOG) MEDIUM Coverage SC SCH (16:30)
[2019-03-21] MEDS ORDERED: Azithromycin 500MG/NS 250ml 500 MG/250 ML BAG IVPB SCH (18:00)
[2019-03-21] MEDS ORDERED: cefTRIAXone 1 gm 1 GM/100 ML BAG IVPB SCH (18:00)
--- NOTE | 2019-03-21 18:09 | CARD ---
APPROVED REPORT Date of service: 03/21/2019 EKG Measurement Heart [id number] <Conclusion> Normal sinus rhythm Normal ECG
--- NOTE | 2019-03-21 18:22 | PCM.SEPTIC ---
Sepsis Progress Note - Reassessment Type Date of Evaluation: 03/21/19 Time of Evaluation: 18:21 Reassessment Type: Non-invasive reassessment - Non Invasive Reassessment Were the most recent vital sign reviewed: Yes Vital Sign (Latest): Temp Pulse Resp BP Pulse Ox 99.7 F H 98 H 19 190/64 H 94 L 03/21/19 16:41 03/21/19 16:41 03/21/19 16:41 03/21/19 16:41 03/21/19 16:41 Cardiovascular: Yes: Regular Rate, Rhythm. No: Tachycardia Respiratory: No: Accessory Muscle Use, Respiratory Distress Capillary Refill: Normal (Less than 2 sec) Pulses: Normal Radial Skin: Normal Color, Warm
--- NOTE | 2019-03-21 22:03 | CP.PCM.PCO ---
Addendum Addendum: PGY1 House doc note Paged about consent for x2 pRBC transfusion as per Dr. Odell. Patient unable to make decision. Daughter (Christina) was called. Risks, benefits, and alternatives explained to daughter. Daughter agreed to transfusion. She has had transfusions in the past without complications. All questions were answered appropriately.
[2019-03-21] MEDS: Lactobacillus Acidophilus 500 MU Cap PO SCH (22:05)
[2019-03-21] MEDS: Insulin Reg-MEDIUM-Coverage SC SCH (22:06)
[2019-03-21] MEDS: Divalproex 125 mg EC Sprinkle Cap PO SCH (22:06)
[2019-03-22 00:44] VITALS: RESP 20
--- NOTE | 2019-03-22 01:22 | HP ---
DATE OF EXAM: 03/21/2019 HISTORY OF PRESENT ILLNESS: I know Guera very well from [facility]. I saw her. She is a 68-year-old female who presented to the emergency room with a fever of 101.2 at the long term. She was given Tylenol, it went down, but it went back up when it went down to 99. Now she is kind of tired and lethargic in the emergency room. Never do traveling. PAST MEDICAL HISTORY: She has congestive heart failure, COPD, CVA, TIA, left eye blind, type 2 diabetes, a right kidney mass was removed at one time. She had a feeding tube. Hematuria, incontinence, anxiety. She required catheterization with 2 stents, she had a hysterectomy. FAMILY HISTORY: No family history that we know of. SOCIAL HISTORY: Nonsmoker, no drinking, no drugs. ALLERGIES: TO LEVAQUIN, SHELLFISH, MORPHINE. CURRENT MEDICATIONS: She is on folic acid, Tradjenta, Ultram, Diovan, Tylenol, aspirin, Ecotrin, Coreg, Uloric, heparin, Ismo, acidophilus, Imodium, Milk Of Magnesia, Mylanta, Procardia, Niacinate ointment, Protonix, Catapres and hydralazine. REVIEW OF SYSTEMS: She is very lethargic with fevers. No shortness of breath. No chest pain. No abdominal pain. No nausea, vomiting, constipation, or diarrhea. Bed bound at this time. She was actually getting up and walking about 3 or 4 days ago, until this fever came in. PHYSICAL EXAMINATION GENERAL: She is well-appearing, a little lethargic, comfortable, alert and oriented x3. VITAL SIGNS: She has a 99.7 temperature now, was up to 102. She got lots of Tylenol. A 98 temperature, 190/64 blood pressure, 19 respiratory rate and 94% up to 99% O2 saturation on room air. HEENT: Head is atraumatic and normocephalic. Left eye blind, does not open it much. Throat is dry. NECK: Supple. No JVD. LUNGS: Decreased breath sounds bilaterally, coarse breath sounds, right is worse than the left. HEART: Regular rate and tachy. ABDOMEN: Soft, no tenderness. Positive bowel sounds and with a feeding tube. SKIN: For the most part is intact. I did not examine the back. EXTREMITIES: There is trace edema bilaterally, +2 pitting edema of the lower extremities. NEUROLOGIC: GCS is 15. Cranial nerves II through XII grossly intact. She is weak in the extremities secondary to a CVA. Alert and oriented x3. LABORATORY DATA: She had multiple tests done. White count is high at 13.1, hemoglobin is low at 7.9. She will be on antibiotics, get transfused, hematocrit is 25.1, platelets are 351. She has a 142 sodium, potassium 5.4, BUN 53, creatinine 2.9, GFR is 15, sugar is 114, calcium is 9.7, phosphorus is 4.6, magnesium 2.4, total bilirubin is 0.3, AST 22, ALT is 11, alkaline phosphate 58, total protein is 7.7, BNP as high as 495, and troponin I is less than 0.01. She had a chest x-ray, which showed right lower lobe infiltrate, probably pneumonia. ASSESSMENT AND PLAN: She is here for that, anemia. She is getting IV Rocephin and Zithromax and will transfuse 2 units. She will have consults with Pulmonary, Infectious Disease and Gastroenterology. We will check her stools for blood. Hopefully, she will do well and improve. Mathieu Odell DO
[2019-03-22] MEDS: Divalproex 125 mg EC Sprinkle Cap PO SCH ×3 (06:04→21:38)
[2019-03-22 07:28] LABS: HEMOGLOBIN 9.9 g/dL (12.0-16.0); MEAN CELL VOLUME 88.3 fl (80.0-105.0); MEAN CORPUSCULAR HEMOGLOBIN 28.2 pg (25.0-35.0); MEAN CORPUSCULAR HGB CONC 31.9 g/dl (31.0-37.0); RBC 3.51 10^6/uL (3.5-6.1); RED CELL DISTRIBUTION WIDTH 16.5 % (11.5-14.5); WHITE BLOOD COUNT 13.6 10^3/uL (4.5-11.0)
[2019-03-22] MEDS: Insulin Reg-MEDIUM-Coverage SC SCH ×4 (08:41→21:38)
[2019-03-22 09:26] LABS: ALBUMIN 3.5 g/dL (3.0-4.8); CALCIUM 9.4 mg/dL (8.4-10.5)
[2019-03-22] MEDS: Lactobacillus Acidophilus 500 MU Cap PO SCH ×2 (09:38→21:37)
[2019-03-22] MEDS: Ferrous Sulfate 300 mg/5 mL Liq UD PO SCH ×2 (09:39→11:40)
[2019-03-22] MEDS: Lidocaine 5% Patch TD SCH (09:39)
[2019-03-22] MEDS: Cefepime 1gm in NS 100ml 1 GM/100 ML BAG IVPB SCH ×2 (09:39→21:39)
[2019-03-22] MEDS: Multivitamin Therapeutic Tab PO SCH (09:45)
--- NOTE | 2019-03-22 10:39 | CP.PCM.CON ---
<Brian Veliz - Last Filed: 03/22/19 14:35> History of Present Illness - History of Present Illness History of Present Illness: Infectious disease consult note: 68-year-old female with past medical history of congestive heart failure, COPD, CVA, left eye blindness, diabetes type 2, incontinence presents from [facility] for fever, cough, and congestion. Patient states that her symptoms started 2 weeks ago and she has been getting progressively worse. She states that her cough is productive with whitish phlegm. She also states that she had a fever of 101 and blood alf. Infectious disease was consulted for sepsis and pneumonia. 12 point ROS performed negative unless stated above PMH: As above PSH: Hysterectomy, right kidney mass removal Medications: Refer to [facility] Allergies: Levaquin, shellfish, morphine SH: Denies any smoking, drinking, or drugs FH: Denies Review of Systems - Review of Systems All systems: reviewed and no additional remarkable complaints except Past Patient History - Infectious Disease Hx of Infectious Diseases: None - Tetanus Immunizations Tetanus Immunization: Unknown - Past Medical History & Family History Past Medical History?: Yes - Past Social History Smoking Status: Never Smoked - CARDIAC Hx Cardiac Disorders: Yes Hx Angina: Yes Hx Congestive Heart Failure: Yes Hx Hypertension: Yes - PULMONARY Hx Bronchitis: Yes Hx Chronic Obstructive Pulmonary Disease (COPD): Yes - NEUROLOGICAL HX Cerebrovascular Accident: Yes Hx Seizures: Yes Hx Transient Ischemic Attacks (TIA): Yes - HEENT Hx Blind: Yes (Left eye) - RENAL Hx Chronic Kidney Disease: No Hx Dialysis: No Hx Kidney Stones: No Hx Neurogenic Bladder: No Hx Pyelonephritis: No Hx Renal (Kidney) Cancer: No Hx Renal Failure: No Other/Comment: right kidney mass removed - ENDOCRINE/METABOLIC Hx Diabetes Mellitus Type 2: Yes - HEMATOLOGICAL/ONCOLOGICAL Hx Anemia: Yes - INTEGUMENTARY Hx Dermatological Problems: No Hx Basil Cell: No Hx Eczema: No Hx Melanoma: No Hx Psoriasis: No Hx Squamous Cell: No - MUSCULOSKELETAL/RHEUMATOLOGICAL Hx Falls: No - GASTROINTESTINAL Other/Comment: PEG Tube - GENITOURINARY/GYNECOLOGICAL Hx Genitourinary Disorders: Yes Hx Hematuria: No Hx Incontinence: Yes Hx Sexually Transmitted Disorders: No Hx Urinary Tract Infection: No - PSYCHIATRIC Hx Psychophysiologic Disorder: Yes Hx Anxiety: Yes Hx Bipolar Disorder: No Hx Depression: Yes Hx Emotional Abuse: No Hx Hallucinations: No Hx Panic Symptoms: No Hx Paranoia: No Hx Post Traumatic Stress Disorder: No Hx Psychosis: No Hx Physical Abuse: No Hx Schizophrenia: No Hx Sexual Abuse: No Hx Substance Use: No - SURGICAL HISTORY Hx Surgeries: Yes Hx Coronary Stent: Yes - ANESTHESIA Hx Anesthesia: Yes Hx Anesthesia Reactions: No Hx Malignant Hyperthermia: No Meds Allergies/Adverse Reactions: Allergies Allergy/AdvReac Type Severity Reaction Status Date / Time levofloxacin [From Levaquin] Allergy RASH Verified 03/21/19 11:58 shellfish derived Allergy RASH Verified 03/21/19 11:58 morphine AdvReac Intermediate FATIGUE Verified 03/21/19 11:58 - Medications Medications: Current Medications Acetaminophen (Tylenol 325mg Tab) 650 mg PO Q6 PRN PRN Reason: Fever >100.4 F Allopurinol (Zyloprim) 100 mg PO DAILY [facility] Last Admin: 03/22/19 09:39 Dose: 100 mg Aspirin (Ecotrin) 81 mg PO DAILY [facility] Last Admin: 03/22/19 09:38 Dose: 81 mg Atorvastatin Calcium (Lipitor) 80 mg PO DIN [facility] Last Admin: 03/21/19 18:46 Dose: 80 mg Carvedilol (Coreg) 25 mg PO BID [facility] Last Admin: 03/22/19 09:38 Dose: 25 mg Clonidine HCl (Catapres) 0.1 mg PO DAILY [facility] Last Admin: 03/22/19 09:38 Dose: 0.1 mg Divalproex Sodium (Depakote Sprinkles) 125 mg PO Q8 [facility]; Protocol Last Admin: 03/22/19 06:04 Dose: 125 mg Docusate Sodium (Colace) 200 mg PO DAILY PRN PRN Reason: Constipation Famotidine (Pepcid) 20 mg PO DAILY [facility] Last Admin: 03/22/19 09:39 Dose: 20 mg Ferrous Sulfate (Feosol Liq) 300 mg PO DAILY [facility] Last Admin: 03/22/19 09:39 Dose: 300 mg Folic Acid (Folic Acid) 1 mg PO DAILY [facility] Last Admin: 03/22/19 09:38 Dose: 1 mg Heparin Sodium (Porcine) (Heparin) 5,000 units SC Q8 [facility]; Protocol Last Admin: 03/22/19 06:03 Dose: 5,000 units Hydralazine HCl (Apresoline) 100 mg PO QID [facility] Last Admin: 03/22/19 09:39 Dose: 100 mg Cefepime HCl (Maxipime 1gm) 1 gm in 100 mls @ 100 mls/hr IVPB Q12 [facility]; Protocol Stop: 03/29/19 10:01 Last Admin: 03/22/19 09:39 Dose: 100 mls/hr Doxycycline Hyclate 100 mg/ (Sodium Chloride) 100 mls @ 100 mls/hr IVPB Q12 [facility]; Protocol Stop: 03/30/19 10:01 Insulin Human Regular (Humulin R Med) 0 units SC ACHS [facility]; Protocol Last Admin: 03/22/19 08:41 Dose: Not Given Isosorbide Mononitrate (Ismo) 20 mg PO Q8 [facility] Last Admin: 03/22/19 06:03 Dose: 20 mg Lactobacillus Acidophilus (Bacid Acidophilus) 1 cap PO Q12 [facility] Last Admin: 03/22/19 09:38 Dose: 1 cap Lidocaine (Lidoderm) 1 ea TD DAILY [facility] Last Admin: 03/22/19 09:39 Dose: 1 ea Losartan Potassium (Cozaar) 100 mg PO DAILY [facility] Last Admin: 03/22/19 09:39 Dose: 100 mg Multivitamins (Thera Tab) 1 tab PO 0800 [facility] Last Admin: 03/22/19 09:45 Dose: 1 tab Ondansetron HCl (Zofran Tab) 4 mg PO Q6H PRN PRN Reason: Nausea/Vomiting Promethazine HCl/Dextromethorphan (Phenergan Dm Syrup) 5 ml PO Q8 PRN PRN Reason: Cough Physical Exam - Constitutional Appears: No Acute Distress - Head Exam Head Exam: ATRAUMATIC, NORMOCEPHALIC - Eye Exam Eye Exam: EOMI - ENT Exam ENT Exam: Mucous Membranes Moist - Respiratory Exam Respiratory Exam: Clear to Auscultation Bilateral, Rhonchi (Right). absent: Rales, Wheezes - Cardiovascular Exam Cardiovascular Exam: REGULAR RHYTHM, RRR, +S1, +S2 - GI/Abdominal Exam GI & Abdominal Exam: Normal Bowel Sounds, Soft. absent: Tenderness - Extremities Exam Extremities exam: Negative for: calf tenderness, pedal edema - Neurological Exam Neurological exam: Alert, CN II-XII Intact, Oriented x3 - Psychiatric Exam Psychiatric exam: Normal Mood - Skin Skin Exam: Dry, Warm Results - Vital Signs Recent Vital Signs: Last Vital Signs Temp 99.3 F 03/22/19 09:03 Pulse 104 H 03/22/19 09:03 Resp 20 03/22/19 09:03 BP 186/70 H 03/22/19 09:03 Pulse Ox 94 L 03/22/19 09:03 - Labs Result Diagrams: 03/22/19 07:15 03/22/19 08:55 Labs: Laboratory Results - last 24 hr 03/21/19 03/21/19 03/21/19 12:00 12:00 12:00 WBC 13.1 H D RBC 2.81 L Hgb 7.9 L Hct 25.1 L MCV 89.3 MCH 28.1 MCHC 31.5 RDW 16.6 H Plt Count 351 MPV 11.0 Neut % (Auto) 79.7 H Lymph % (Auto) 12.2 L [place] % (Auto) 7.3 H Eos % (Auto) 0.7 L Baso % (Auto) 0.1 Lymph # (Auto) 1.6 [place] # (Auto) 1.0 H Eos # (Auto) 0.1 Baso # (Auto) 0.01 Absolute Neuts (auto) 10.43 H PT 12.6 H INR 1.12 APTT 31.9 pO2 VBG pH VBG pCO2 VBG HCO3 VBG Total CO2 VBG O2 Sat (Calc) VBG Base Excess VBG Potassium Glucose Lactate FiO2 Crit Value Called To Crit Value Called By Blood Gas Notified Time Sodium 142 Potassium 5.4 H Chloride 109 H Carbon Dioxide 22 Anion Gap 17 BUN 63 H Creatinine 2.9 H Est GFR ( Amer) 20 Est GFR (Non-Af Amer) 16 POC Glucose (mg/dL) Random Glucose 104 Calcium 9.7 Phosphorus 4.6 H Magnesium 2.4 H Total Bilirubin 0.3 AST 22 ALT 11 Alkaline Phosphatase 68 Troponin I < 0.01 D NT-Pro-B Natriuret Pep 495 H Total Protein 7.7 Albumin 3.8 Globulin 3.9 Albumin/Globulin Ratio 1.0 L Venous Blood Potassium Blood Type Antibody Screen Crossmatch BBK History Checked 03/21/19 03/21/19 03/21/19 12:09 12:30 15:25 WBC RBC Hgb Hct MCV MCH MCHC RDW Plt Count MPV Neut % (Auto) Lymph % (Auto) [place] % (Auto) Eos % (Auto) Baso % (Auto) Lymph # (Auto) [place] # (Auto) Eos # (Auto) Baso # (Auto) Absolute Neuts (auto) PT INR APTT pO2 49 VBG pH 7.40 VBG pCO2 38.0 L VBG HCO3 23.5 VBG Total CO2 24.7 VBG O2 Sat (Calc) 89.9 H VBG Base Excess -1.1 L VBG Potassium 6.6 H* Glucose 97 Lactate 0.7 FiO2 21.0 Crit Value Called To Dr umanzor Crit Value Called By [facility] Blood Gas Notified Time 1242 Sodium 137.0 Potassium Chloride 110.0 H Carbon Dioxide Anion Gap BUN Creatinine Est GFR ( Amer) Est GFR (Non-Af Amer) POC Glucose (mg/dL) 114 H Random Glucose Calcium Phosphorus Magnesium Total Bilirubin AST ALT Alkaline Phosphatase Troponin I NT-Pro-B Natriuret Pep Total Protein Albumin Globulin Albumin/Globulin Ratio Venous Blood Potassium 6.6 H* Blood Type O POSITIVE Antibody Screen Negative Crossmatch See Detail BBK History Checked Patient has bt 03/21/19 03/21/19 03/22/19 16:30 21:44 07:15 WBC 13.6 H RBC 3.51 Hgb 9.9 L D Hct 31.0 L MCV 88.3 MCH 28.2 MCHC 31.9 RDW 16.5 H Plt Count 387 MPV 11.0 Neut % (Auto) Lymph % (Auto) [place] % (Auto) Eos % (Auto) Baso % (Auto) Lymph # (Auto) [place] # (Auto) Eos # (Auto) Baso # (Auto) Absolute Neuts (auto) PT INR APTT pO2 VBG pH VBG pCO2 VBG HCO3 VBG Total CO2 VBG O2 Sat (Calc) VBG Base Excess VBG Potassium Glucose Lactate FiO2 Crit Value Called To Crit Value Called By Blood Gas Notified Time Sodium Potassium Chloride Carbon Dioxide Anion Gap BUN Creatinine Est GFR ( Amer) Est GFR (Non-Af Amer) POC Glucose (mg/dL) 120 H 191 H Random Glucose Calcium Phosphorus Magnesium Total Bilirubin AST ALT Alkaline Phosphatase Troponin I NT-Pro-B Natriuret Pep Total Protein Albumin Globulin Albumin/Globulin Ratio Venous Blood Potassium Blood Type Antibody Screen Crossmatch BBK History Checked 03/22/19 03/22/19 07:15 08:55 WBC RBC Hgb Hct MCV MCH MCHC RDW Plt Count MPV Neut % (Auto) Lymph % (Auto) [place] % (Auto) Eos % (Auto) Baso % (Auto) Lymph # (Auto) [place] # (Auto) Eos # (Auto) Baso # (Auto) Absolute Neuts (auto) PT INR APTT pO2 VBG pH VBG pCO2 VBG HCO3 VBG Total CO2 VBG O2 Sat (Calc) VBG Base Excess VBG Potassium Glucose Lactate FiO2 Crit Value Called To Crit Value Called By Blood Gas Notified Time Sodium 146 Potassium 4.7 Chloride 115 H Carbon Dioxide 22 Anion Gap 15 BUN 54 H Creatinine 2.6 H Est GFR ( Amer) 22 Est GFR (Non-Af Amer) 18 POC Glucose (mg/dL) 128 H Random Glucose 118 H Calcium 9.4 Phosphorus Magnesium Total Bilirubin 0.2 AST 18 ALT 10 Alkaline Phosphatase 62 Troponin I NT-Pro-B Natriuret Pep Total Protein 7.1 Albumin 3.5 Globulin 3.6 Albumin/Globulin Ratio 1.0 L Venous Blood Potassium Blood Type Antibody Screen Crossmatch BBK History Checked Assessment & Plan - Assessment and Plan (Free Text) Assessment: Severe sepsis secondary to right lower lobe HCAP Acute on chronic kidney disease Hyperkalemia Anemia S/P 2 units PRBC History of heart failure COPD CVA Diabetic type II Left eye blindness Obesity Patient was given 1 dose of Vanco and Zosyn in the emergency room Patient was started on cefepime and doxycycline Chest x-ray showed right lower lobe pneumonia Follow-up septic work-up - procalcitonin neg Continue to monitor for any changes Case and plan to be reviewed and discussed with Dr. Luna <Garcia Luna - Last Filed: 03/22/19 14:36> Meds - Medications Medications: Current Medications Acetaminophen (Tylenol 325mg Tab) 650 mg PO Q6 PRN PRN Reason: Fever >100.4 F Allopurinol (Zyloprim) 100 mg PO DAILY [facility] Last Admin: 03/22/19 09:39 Dose: 100 mg Aspirin (Ecotrin) 81 mg PO DAILY [facility] Last Admin: 03/22/19 09:38 Dose: 81 mg Atorvastatin Calcium (Lipitor) 80 mg PO DIN [facility] Last Admin: 03/21/19 18:46 Dose: 80 mg Carvedilol (Coreg) 25 mg PO BID [facility] Last Admin: 03/22/19 09:38 Dose: 25 mg Clonidine HCl (Catapres) 0.1 mg PO DAILY [facility] Last Admin: 03/22/19 09:38 Dose: 0.1 mg Divalproex Sodium (Depakote Sprinkles) 125 mg PO Q8 [facility]; Protocol Last Admin: 03/22/19 14:26 Dose: 125 mg Docusate Sodium (Colace) 200 mg PO DAILY PRN PRN Reason: Constipation Famotidine (Pepcid) 20 mg PO DAILY [facility] Last Admin: 03/22/19 09:39 Dose: 20 mg Ferrous Sulfate (Feosol Liq) 300 mg PO DAILY [facility] Last Admin: 03/22/19 11:40 Dose: Not Given Folic Acid (Folic Acid) 1 mg PO DAILY [facility] Last Admin: 03/22/19 09:38 Dose: 1 mg Heparin Sodium (Porcine) (Heparin) 5,000 units SC Q8 [facility]; Protocol Last Admin: 03/22/19 14:26 Dose: 5,000 units Hydralazine HCl (Apresoline) 100 mg PO QID [facility] Last Admin: 03/22/19 14:26 Dose: 100 mg Cefepime HCl (Maxipime 1gm) 1 gm in 100 mls @ 100 mls/hr IVPB Q12 [facility]; Protocol Stop: 03/29/19 10:01 Last Admin: 03/22/19 09:39 Dose: 100 mls/hr Doxycycline Hyclate 100 mg/ (Sodium Chloride) 100 mls @ 100 mls/hr IVPB Q12 [facility]; Protocol Stop: 03/30/19 10:01 Last Admin: 03/22/19 14:31 Dose: 100 mls/hr Insulin Human Regular (Humulin R Med) 0 units SC ACHS [facility]; Protocol Last Admin: 03/22/19 14:30 Dose: 5 units Isosorbide Mononitrate (Ismo) 20 mg PO Q8 [facility] Last Admin: 03/22/19 14:26 Dose: 20 mg Lactobacillus Acidophilus (Bacid Acidophilus) 1 cap PO Q12 [facility] Last Admin: 03/22/19 09:38 Dose: 1 cap Lidocaine (Lidoderm) 1 ea TD DAILY [facility] Last Admin: 03/22/19 09:39 Dose: 1 ea Losartan Potassium (Cozaar) 100 mg PO DAILY [facility] Last Admin: 03/22/19 09:39 Dose: 100 mg Multivitamins (Thera Tab) 1 tab PO 0800 [facility] Last Admin: 03/22/19 09:45 Dose: 1 tab Ondansetron HCl (Zofran Tab) 4 mg PO Q6H PRN PRN Reason: Nausea/Vomiting Promethazine HCl/Dextromethorphan (Phenergan Dm Syrup) 5 ml PO Q8 PRN PRN Reason: Cough Results - Vital Signs Recent Vital Signs: Last Vital Signs Temp 99.3 F 03/22/19 09:03 Pulse 104 H 03/22/19 09:03 Resp 20 03/22/19 09:03 BP 186/70 H 03/22/19 09:03 Pulse Ox 94 L 03/22/19 09:03 - Labs Result Diagrams: 03/22/19 07:15 03/22/19 08:55 Labs: Laboratory Results - last 24 hr 03/21/19 03/21/19 03/21/19 15:25 16:30 21:44 WBC RBC Hgb Hct MCV MCH MCHC RDW Plt Count MPV Sodium Potassium Chloride Carbon Dioxide Anion Gap BUN Creatinine Est GFR ( Amer) Est GFR (Non-Af Amer) POC Glucose (mg/dL) 120 H 191 H Random Glucose Calcium Total Bilirubin AST ALT Alkaline Phosphatase Total Protein Albumin Globulin Albumin/Globulin Ratio Procalcitonin Blood Type O POSITIVE Antibody Screen Negative Crossmatch See Detail BBK History Checked Patient has bt 03/22/19 03/22/19 03/22/19 07:15 07:15 08:55 WBC 13.6 H RBC 3.51 Hgb 9.9 L D Hct 31.0 L MCV 88.3 MCH 28.2 MCHC 31.9 RDW 16.5 H Plt Count 387 MPV 11.0 Sodium 146 Potassium 4.7 Chloride 115 H Carbon Dioxide 22 Anion Gap 15 BUN 54 H Creatinine 2.6 H Est GFR ( Amer) 22 Est GFR (Non-Af Amer) 18 POC Glucose (mg/dL) 128 H Random Glucose 118 H Calcium 9.4 Total Bilirubin 0.2 AST 18 ALT 10 Alkaline Phosphatase 62 Total Protein 7.1 Albumin 3.5 Globulin 3.6 Albumin/Globulin Ratio 1.0 L Procalcitonin Blood Type Antibody Screen Crossmatch BBK History Checked 03/22/19 03/22/19 08:55 11:27 WBC RBC Hgb Hct MCV MCH MCHC RDW Plt Count MPV Sodium Potassium Chloride Carbon Dioxide Anion Gap BUN Creatinine Est GFR ( Amer) Est GFR (Non-Af Amer) POC Glucose (mg/dL) 269 H Random Glucose Calcium Total Bilirubin AST ALT Alkaline Phosphatase Total Protein Albumin Globulin Albumin/Globulin Ratio Procalcitonin 0.06 L Blood Type Antibody Screen Crossmatch BBK History Checked Attending/Attestation - Attestation I have personally seen and examined this patient.: Yes I have fully participated in the care of the patient.: Yes I have reviewed all pertinent clinical information: Yes
--- NOTE | 2019-03-22 12:43 | PN ---
DATE: 03/22/2019 SUBJECTIVE: I saw her resting comfortably in bed. She slept fairly well last night. She tells me she starts to feel a little bit better although she still has a cough. I asked her to please get out of bed and to eat a little bit. MEDICATIONS: She is on albuterol, Apresoline, lactobacillus acidophilus, Catapres, Colace, Coreg, Cozaar, Depakote, dextrose, Vibramycin IV, Ecotrin, Feosol, folic acid, heparin, insulin, Imdur, Lasix, Lidoderm, Lipitor, Maxipime IV, Pepcid, Phenergan, sodium bicarb, IV fluids, Solu-Medrol, vancomycin, Zofran, Zosyn, and Zyloprim. PHYSICAL EXAMINATION: VITAL SIGNS: She has a 99.3 temperature, 104 pulse, 186/70 blood pressure, 20 respiratory rate. HEENT: Head is atraumatic, normocephalic. HEART: Regular rate. LUNGS: Decreased breath sounds. Congestion, I believe she has more of a right pneumonia, small congestion on the right. ABDOMEN: Soft. EXTREMITIES: Weak. No edema. LABORATORY DATA: She has a 142 sodium, potassium 5.4, this was yesterday's labs, no labs back from today. 120 was a last blood sugar. White count today 13.6, went up a little bit, hemoglobin after transfusion is 9.9, hematocrit 31, platelets of 387. I will watch her closely. She has multiple consults. Get her out of bed to chair IV antibiotics. Continue treatment and care for the right pneumonia. She is also quite anemic. Mathieu Odell DO
--- NOTE | 2019-03-22 14:22 | CON ---
DATE OF CONSULTATION: 03/22/2019 PULMONARY CONSULTATION REASON FOR CONSULTATION: Pneumonia. REFERRING PHYSICIAN: Dr. Mathieu Odell. SOURCE OF HISTORY: History is obtained via extensive discussion with the night nurse. I have also discussed the case with the patient at length, and reviewed the chart at length. HISTORY OF PRESENT ILLNESS: The patient is a chronically ill 68-year-old female, with past medical history significant for cerebrovascular accident, hypertension, diabetes mellitus, questionable chronic obstructive pulmonary disease (not on any pulmonary medications), who presents to [facility] - transferred from the halfway - with main complaint of fevers (101.2 at the halfway). There is no history of shortness of breath at rest or dyspnea on exertion. The patient does state to an occasional cough. No sputum production. No history of chest pain, coughing up of blood, or chest pain - made worse with deep respirations. As above, the patient did present with fevers. No history of chills or infectious exposure. No history of night sweats, weight loss, or appetite change prior to the above events. No history of calf pains. No history of syncope or diaphoresis. No history of recent travel or trauma. REVIEW OF SYSTEMS: No history of nausea, vomiting, or diarrhea. No acute urinary symptoms. Rest of the review of systems is negative. ALLERGIES: LEVAQUIN, SHELLFISH, AND MORPHINE. SOCIAL HISTORY: Positive for former tobacco usage. No alcohol. FAMILY HISTORY: No inheritable diseases. MEDICATIONS: Home medications include Apresoline, Catapres, lactobacillus, Coreg, atorvastatin, Ultram, Diovan, Procardia, Imodium, Tradjenta, Humalog. PHYSICAL EXAMINATION: GENERAL: The patient appears awake and alert this morning. She is not short of breath at rest. VITAL SIGNS: Temperature is 99.3, pulse this morning is 88, respiratory rate 18/20, blood pressure 186/70. Oxygen saturation on room air 94-99%. HEENT: Normocephalic, atraumatic. NECK: No JVD. CARDIOVASCULAR: Positive S1, S2. No S3, gallop. LUNGS: Crackles - right base. Otherwise clear. EXTREMITIES: Mild edema, no cyanosis, no clubbing. Calves are nontender to palpation. GASTROINTESTINAL: Abdomen is soft, nontender, and nondistended. Bowel sounds are positive. There is a feeding tube in place. SKIN: No acute rash. NEUROLOGIC: Exam limited at the present time. PERTINENT LABORATORY DATA: Chest x-ray was done yesterday and reviewed.. There is a new small patchy infiltrate noted at the right base. CBC: White count 13.1K, hemoglobin 7.9, hematocrit 25.1, platelets of 351,000. Complete metabolic profile: Potassium 5.4, chloride 109, BUN 63, creatinine 2.9, glucose 114, phosphorus 4.6, magnesium 2.4. B-type natriuretic peptide 495. Rest of the metabolic profile is within normal limits. IMPRESSION: 1. Right lower lobe pneumonia. 2. Anemia. 3. Renal insufficiency. 4. Diabetes mellitus. PLAN: Again, I did discuss the case with the night nurse at length. I have also discussed the case with the patient at length, and reviewed the chart at length. The patient presents to [facility] - transferred from the halfway - with main complaint of fevers. As above, the patient also states to a minimal occasional cough. There are no other pulmonary symptoms reported. I did review the chest x-ray as above. There is a new small patchy infiltrate noted at the right lung base. Hanson cultures have been ordered and will be analyzed when feasible. Dr. Luna (Infectious Disease) has been called on the case for antibiotic usage. On physical exam, there is no significant bronchospasm noted. In addition, there is no significant alveolar arterial gradient. Again, the patient is on no pulmonary medications as an outpatient. Gastroenterology evaluation has also been ordered. I will order aspiration precautions. The patient does state to feeling better this morning and is clinically improved. Additional pulmonary intervention will be based on the clinical status of the patient. I will discuss the above with Dr. Odell later this morning. Thank you very much for this pulmonary consultation. Noe Velásquez MD [facility]
[2019-03-23] MEDS: Divalproex 125 mg EC Sprinkle Cap PO SCH ×3 (06:15→21:03)
--- NOTE | 2019-03-23 07:52 | PN ---
DATE: 03/23/2019 SUBJECTIVE: The patient appears comfortable this morning. She is not short of breath at rest. PHYSICAL EXAMINATION: VITAL SIGNS: (Last noted in the computer): Temperature is 97.9, pulse 89, respirations 18/20, blood pressure 195/76. Oxygen saturation on room air - 97%. HEENT: Normocephalic, atraumatic. No JVD. CARDIOVASCULAR: Positive S1, S2. No S3 gallop. LUNGS: Crackles - right base. No rhonchi. No wheezing. EXTREMITIES: Mild edema, no cyanosis, no clubbing. Calves are nontender to palpation. GASTROINTESTINAL: Abdomen is soft, nontender, nondistended. Bowel sounds are positive. There is a feeding tube in place. SKIN: No acute rash. NEUROLOGIC: Exam limited at the present time. IMPRESSION: 1. Right lower lobe pneumonia. 2. Anemia. 3. Renal insufficiency. 4. Diabetes mellitus. PLAN: The patient appears quite comfortable this morning. She is not short of breath at rest. She does state to feeling better overall. I did discuss the case with the night nurse at length. The night nurse stated the patient had an uneventful night. On physical exam, there is no significant bronchospasm noted. In addition, there is no significant alveolar arterial gradient. I will continue the aspiration precautions for now. The patient remains on antibiotic therapy - as per Infectious Disease. Temperatures are resolving. There is a persistent mild leukocytosis. Repeat a.m. labs are pending. Gastroenterology evaluation is also pending. The patient does appear improved - compared to the initial presentation. However, given the above, the future status/prognosis for this patient does remain guarded. I will discuss the above with Dr. Odell later this morning. Noe Velásquez MD [facility]
[2019-03-23] MEDS: Insulin Reg-MEDIUM-Coverage SC SCH ×4 (08:40→21:05)
[2019-03-23] MEDS: Lidocaine 5% Patch TD SCH (09:14)
[2019-03-23] MEDS: Multivitamin Therapeutic Tab PO SCH (09:24)
[2019-03-23] MEDS: Lactobacillus Acidophilus 500 MU Cap PO SCH ×2 (09:25→21:47)
[2019-03-23] MEDS: Ferrous Sulfate 300 mg/5 mL Liq UD PO SCH (09:34)
[2019-03-23] MEDS: Cefepime 1gm in NS 100ml 1 GM/100 ML BAG IVPB SCH ×2 (09:36→21:04)
[2019-03-23 09:49] LABS: MEAN CELL VOLUME 89.4 fl (80.0-105.0); MEAN CORPUSCULAR HEMOGLOBIN 28.6 pg (25.0-35.0); MEAN PLATELET VOLUME 10.7 fl (7.0-11.0); RBC 3.85 10^6/uL (3.5-6.1); WHITE BLOOD COUNT 13.9 10^3/uL (4.5-11.0)
[2019-03-23 09:55] LABS: ALB/GLOB RATIO 0.9 (1.1-1.8); ALBUMIN 3.6 g/dL (3.0-4.8); ALT/SGPT < 6 U/L (7-56); AST/SGOT 21 U/L (14-36); BLOOD UREA NITROGEN 45 mg/dL (7-21); CALCIUM 9.6 mg/dL (8.4-10.5); GFR NON-AFRICAN AMERICAN 23
--- NOTE | 2019-03-23 10:33 | CP.PCM.PN ---
<Brian Veliz - Last Filed: 03/23/19 14:32> Subjective - Date & Time of Evaluation Date of Evaluation: 03/23/19 Time of Evaluation: 09:10 - Subjective Subjective: Infectious disease progress note: Patient seen and examined at bedside. No acute events overnight. Still complaisn of cough. NO sob or chest pain. No other complaints. 12 point ROS performed and negative unless stated above. Objective - Vital Signs/Intake and Output Vital Signs (last 24 hours): Temp Pulse Resp BP Pulse Ox 98.1 F 90 20 193/87 H 95 03/23/19 08:49 03/23/19 09:23 03/23/19 08:49 03/23/19 09:23 03/23/19 08:49 Intake and Output: 03/23/19 03/23/19 06:59 18:59 Intake Total 1040 Balance 1040 - Medications Medications: Current Medications Acetaminophen (Tylenol 325mg Tab) 650 mg PO Q6 PRN PRN Reason: Fever >100.4 F Last Admin: 03/23/19 09:19 Dose: 650 mg Allopurinol (Zyloprim) 100 mg PO DAILY [facility] Last Admin: 03/23/19 09:35 Dose: 100 mg Amlodipine Besylate (Norvasc) 5 mg PO DAILY [facility] Aspirin (Ecotrin) 81 mg PO DAILY [facility] Last Admin: 03/23/19 09:23 Dose: 81 mg Atorvastatin Calcium (Lipitor) 80 mg PO DIN [facility] Last Admin: 03/22/19 18:44 Dose: 80 mg Carvedilol (Coreg) 25 mg PO BID [facility] Last Admin: 03/23/19 09:23 Dose: 25 mg Clonidine HCl (Catapres) 0.1 mg PO DAILY [facility] Last Admin: 03/23/19 09:21 Dose: 0.1 mg Divalproex Sodium (Depakote Sprinkles) 125 mg PO Q8 [facility]; Protocol Last Admin: 03/23/19 06:15 Dose: Not Given Docusate Sodium (Colace) 200 mg PO DAILY PRN PRN Reason: Constipation Ferrous Sulfate (Feosol Liq) 300 mg PO DAILY [facility] Last Admin: 03/23/19 09:34 Dose: 300 mg Folic Acid (Folic Acid) 1 mg PO DAILY [facility] Last Admin: 03/23/19 09:24 Dose: 1 mg Furosemide (Lasix) 40 mg IVP DAILY [facility] Heparin Sodium (Porcine) (Heparin) 5,000 units SC Q8 [facility]; Protocol Last Admin: 03/23/19 06:17 Dose: 5,000 units Hydralazine HCl (Apresoline) 100 mg PO QID [facility] Last Admin: 03/23/19 09:22 Dose: 100 mg Cefepime HCl (Maxipime 1gm) 1 gm in 100 mls @ 100 mls/hr IVPB Q12 [facility]; Protocol Stop: 03/29/19 10:01 Last Admin: 03/23/19 09:36 Dose: 100 mls/hr Doxycycline Hyclate 100 mg/ (Sodium Chloride) 100 mls @ 100 mls/hr IVPB Q12 [facility]; Protocol Stop: 03/30/19 10:01 Last Admin: 03/23/19 09:19 Dose: 100 mls/hr Insulin Human Regular (Humulin R Med) 0 units SC ACHS [facility]; Protocol Last Admin: 03/23/19 08:40 Dose: Not Given Isosorbide Mononitrate (Ismo) 20 mg PO Q8 [facility] Last Admin: 03/23/19 06:18 Dose: 20 mg Lactobacillus Acidophilus (Bacid Acidophilus) 1 cap PO Q12 [facility] Last Admin: 03/23/19 09:25 Dose: 1 cap Lidocaine (Lidoderm) 1 ea TD DAILY [facility] Last Admin: 03/23/19 09:14 Dose: 1 ea Losartan Potassium (Cozaar) 100 mg PO DAILY [facility] Last Admin: 03/23/19 09:24 Dose: 100 mg Multivitamins (Thera Tab) 1 tab PO 0800 [facility] Last Admin: 03/23/19 09:24 Dose: 1 tab Ondansetron HCl (Zofran Tab) 4 mg PO Q6H PRN PRN Reason: Nausea/Vomiting Pantoprazole Sodium (Protonix Ec Tab) 40 mg PO 0600 [facility] Promethazine HCl/Dextromethorphan (Phenergan Dm Syrup) 5 ml PO Q8 PRN PRN Reason: Cough - Labs Labs: 03/23/19 09:00 03/23/19 09:00 PT 12.6 SECONDS (9.4-12.5) H 03/21/19 12:00 INR 1.12 03/21/19 12:00 APTT 31.9 Seconds (26.9-38.3) 03/21/19 12:00 - Constitutional Appears: No Acute Distress - Head Exam Head Exam: ATRAUMATIC, NORMOCEPHALIC - Eye Exam Eye Exam: EOMI - ENT Exam ENT Exam: Mucous Membranes Moist - Respiratory Exam Respiratory Exam: Clear to Ausculation Bilateral, Rhonchi (RUL). absent: Wheezes - Cardiovascular Exam Cardiovascular Exam: REGULAR RHYTHM, +S1, +S2 - GI/Abdominal Exam GI & Abdominal Exam: Soft, Normal Bowel Sounds - Extremities Exam Extremities Exam: absent: Calf Tenderness, Pedal Edema - Neurological Exam Neurological Exam: Alert, Awake Assessment and Plan - Assessment and Plan (Free Text) Assessment: Severe sepsis secondary to right lower lobe HCAP Acute on chronic kidney disease Hyperkalemia Anemia S/P 2 units PRBC History of heart failure COPD CVA Diabetic type II Left eye blindness Obesity Continue cefepime day 2 and doxycycline day 2, upon d/c she can go with PO doxy 100mg BID for 5 days Follow-up septic work-up - procalcitonin neg Continue to monitor for any changes Case and plan to be reviewed and discussed with Dr. Luna <Garcia Luna - Last Filed: 03/23/19 18:58> Objective - Vital Signs/Intake and Output Vital Signs (last 24 hours): Temp Pulse Resp BP Pulse Ox 98.8 F 89 20 192/80 H 96 03/23/19 16:42 03/23/19 17:49 03/23/19 16:42 03/23/19 17:49 03/23/19 16:42 Intake and Output: 03/23/19 03/23/19 06:59 18:59 Intake Total 1040 1220 Output Total 1000 Balance 1040 220 - Medications Medications: Current Medications Acetaminophen (Tylenol 325mg Tab) 650 mg PO Q6 PRN PRN Reason: Fever >100.4 F Last Admin: 03/23/19 09:19 Dose: 650 mg Allopurinol (Zyloprim) 100 mg PO DAILY [facility] Last Admin: 03/23/19 09:35 Dose: 100 mg Amlodipine Besylate (Norvasc) 5 mg PO DAILY [facility] Last Admin: 03/23/19 10:42 Dose: 5 mg Aspirin (Ecotrin) 81 mg PO DAILY [facility] Last Admin: 03/23/19 09:23 Dose: 81 mg Atorvastatin Calcium (Lipitor) 80 mg PO DIN [facility] Last Admin: 03/23/19 17:49 Dose: 80 mg Carvedilol (Coreg) 25 mg PO BID [facility] Last Admin: 03/23/19 17:49 Dose: 25 mg Clonidine HCl (Catapres) 0.1 mg PO Q4H PRN PRN Reason: hypertension Last Admin: 03/23/19 17:49 Dose: 0.1 mg Divalproex Sodium (Depakote Sprinkles) 125 mg PO Q8 [facility]; Protocol Last Admin: 03/23/19 15:05 Dose: 125 mg Docusate Sodium (Colace) 200 mg PO DAILY PRN PRN Reason: Constipation Ferrous Sulfate (Feosol Liq) 300 mg PO DAILY [facility] Last Admin: 03/23/19 09:34 Dose: 300 mg Folic Acid (Folic Acid) 1 mg PO DAILY [facility] Last Admin: 03/23/19 09:24 Dose: 1 mg Furosemide (Lasix) 40 mg IVP DAILY [facility] Last Admin: 03/23/19 10:43 Dose: 40 mg Heparin Sodium (Porcine) (Heparin) 5,000 units SC Q8 [facility]; Protocol Last Admin: 03/23/19 15:04 Dose: 5,000 units Hydralazine HCl (Apresoline) 100 mg PO QID [facility] Last Admin: 03/23/19 17:48 Dose: 100 mg Cefepime HCl (Maxipime 1gm) 1 gm in 100 mls @ 100 mls/hr IVPB Q12 [facility]; Protocol Stop: 03/29/19 10:01 Last Admin: 03/23/19 09:36 Dose: 100 mls/hr Doxycycline Hyclate 100 mg/ (Sodium Chloride) 100 mls @ 100 mls/hr IVPB Q12 [facility]; Protocol Stop: 03/30/19 10:01 Last Admin: 03/23/19 09:19 Dose: 100 mls/hr Insulin Human Regular (Humulin R Med) 0 units SC ACHS [facility]; Protocol Last Admin: 03/23/19 15:51 Dose: Not Given Isosorbide Mononitrate (Ismo) 20 mg PO Q8 [facility] Last Admin: 03/23/19 15:04 Dose: 20 mg Lactobacillus Acidophilus (Bacid Acidophilus) 1 cap PO Q12 [facility] Last Admin: 03/23/19 09:25 Dose: 1 cap Lidocaine (Lidoderm) 1 ea TD DAILY [facility] Last Admin: 03/23/19 09:14 Dose: 1 ea Losartan Potassium (Cozaar) 100 mg PO DAILY [facility] Last Admin: 03/23/19 09:24 Dose: 100 mg Multivitamins (Thera Tab) 1 tab PO 0800 [facility] Last Admin: 03/23/19 09:24 Dose: 1 tab Ondansetron HCl (Zofran Tab) 4 mg PO Q6H PRN PRN Reason: Nausea/Vomiting Oxycodone/Acetaminophen (Percocet 5/325 Mg Tab) 1 tab PO Q6H PRN PRN Reason: Pain, moderate (4-7) Stop: 03/26/19 11:28 Last Admin: 03/23/19 12:42 Dose: 1 tab Pantoprazole Sodium (Protonix Ec Tab) 40 mg PO 0600 [facility] Promethazine HCl/Dextromethorphan (Phenergan Dm Syrup) 5 ml PO Q8 PRN PRN Reason: Cough Last Admin: 03/23/19 11:28 Dose: 5 ml - Labs Labs: 03/23/19 09:00 03/23/19 09:00 PT 12.6 SECONDS (9.4-12.5) H 03/21/19 12:00 INR 1.12 03/21/19 12:00 APTT 31.9 Seconds (26.9-38.3) 03/21/19 12:00 Attending/Attestation - Attestation I have personally seen and examined this patient.: Yes I have fully participated in the care of the patient.: Yes I have reviewed all pertinent clinical information, including history, physical exam and plan: Yes
[2019-03-23] MEDS: Promethazine DM 6.25 mg-15 mg/5 ml Syrup PO PRN (11:28)
--- NOTE | 2019-03-23 11:33 | CP.PCM.CON ---
<Megan Cordova - Last Filed: 03/23/19 12:28> History of Present Illness - History of Present Illness History of Present Illness: Gastroenterology Fellow/PGY6 Consult Note 68 year old female with PMH of dysphagia 2/2 CVA 11/2017 s/p PEG placement, anemia requiring transfusion 2014, CAD s/p stents, CKD, COPD, and Diabetes presenting with shortness of breath. Associated productive cough, runny nose, and chills. Active treatment of sepsis secondary to HCAP with [facility]. GI consultation for anemia. Patient denies NSAIDs use, nausea, vomiting, abdominal pain, hematemesis, constipation ,diarrhea, melena, hematochezia, or unintentional weight loss. Prior EGD for PEG placement 11/2017 with unknown findings. Prior incomplete colonoscopy 06/2018 to transverse colon showed two sub-cm tubular adenomas. Family History- denies stomach cancer, colon cancer Social History- denies tobacco, alcohol, illicit drug use Surgical History- right kidney mass removal 11/2017, hysterectomy, rotator cuff, cardiac stents Review of Systems - Review of Systems Review of Systems: 12-point review of systems negative except for as above Past Patient History - Infectious Disease Hx of Infectious Diseases: None - Tetanus Immunizations Tetanus Immunization: Unknown - Past Medical History & Family History Past Medical History?: Yes - Past Social History Smoking Status: Never Smoked - CARDIAC Hx Cardiac Disorders: Yes Hx Angina: Yes Hx Congestive Heart Failure: Yes Hx Hypertension: Yes - PULMONARY Hx Bronchitis: Yes Hx Chronic Obstructive Pulmonary Disease (COPD): Yes - NEUROLOGICAL HX Cerebrovascular Accident: Yes Hx Seizures: Yes Hx Transient Ischemic Attacks (TIA): Yes - HEENT Hx Blind: Yes (Left eye) - RENAL Hx Chronic Kidney Disease: No Hx Dialysis: No Hx Kidney Stones: No Hx Neurogenic Bladder: No Hx Pyelonephritis: No Hx Renal (Kidney) Cancer: No Hx Renal Failure: No Other/Comment: right kidney mass removed - ENDOCRINE/METABOLIC Hx Diabetes Mellitus Type 2: Yes - HEMATOLOGICAL/ONCOLOGICAL Hx Anemia: Yes - INTEGUMENTARY Hx Dermatological Problems: No Hx Basil Cell: No Hx Eczema: No Hx Melanoma: No Hx Psoriasis: No Hx Squamous Cell: No - MUSCULOSKELETAL/RHEUMATOLOGICAL Hx Falls: No - GASTROINTESTINAL Other/Comment: PEG Tube - GENITOURINARY/GYNECOLOGICAL Hx Genitourinary Disorders: Yes Hx Hematuria: No Hx Incontinence: Yes Hx Sexually Transmitted Disorders: No Hx Urinary Tract Infection: No - PSYCHIATRIC Hx Psychophysiologic Disorder: Yes Hx Anxiety: Yes Hx Bipolar Disorder: No Hx Depression: Yes Hx Emotional Abuse: No Hx Hallucinations: No Hx Panic Symptoms: No Hx Paranoia: No Hx Post Traumatic Stress Disorder: No Hx Psychosis: No Hx Physical Abuse: No Hx Schizophrenia: No Hx Sexual Abuse: No Hx Substance Use: No - SURGICAL HISTORY Hx Surgeries: Yes Hx Coronary Stent: Yes - ANESTHESIA Hx Anesthesia: Yes Hx Anesthesia Reactions: No Hx Malignant Hyperthermia: No Meds Allergies/Adverse Reactions: Allergies Allergy/AdvReac Type Severity Reaction Status Date / Time levofloxacin [From Levaquin] Allergy RASH Verified 03/21/19 11:58 shellfish derived Allergy RASH Verified 03/21/19 11:58 morphine AdvReac Intermediate FATIGUE Verified 03/21/19 11:58 - Medications Medications: Current Medications Acetaminophen (Tylenol 325mg Tab) 650 mg PO Q6 PRN PRN Reason: Fever >100.4 F Last Admin: 03/23/19 09:19 Dose: 650 mg Allopurinol (Zyloprim) 100 mg PO DAILY [facility] Last Admin: 03/23/19 09:35 Dose: 100 mg Amlodipine Besylate (Norvasc) 5 mg PO DAILY [facility] Last Admin: 03/23/19 10:42 Dose: 5 mg Aspirin (Ecotrin) 81 mg PO DAILY [facility] Last Admin: 03/23/19 09:23 Dose: 81 mg Atorvastatin Calcium (Lipitor) 80 mg PO DIN [facility] Last Admin: 03/22/19 18:44 Dose: 80 mg Carvedilol (Coreg) 25 mg PO BID [facility] Last Admin: 03/23/19 09:23 Dose: 25 mg Clonidine HCl (Catapres) 0.1 mg PO DAILY [facility] Last Admin: 03/23/19 09:21 Dose: 0.1 mg Divalproex Sodium (Depakote Sprinkles) 125 mg PO Q8 [facility]; Protocol Last Admin: 03/23/19 06:15 Dose: Not Given Docusate Sodium (Colace) 200 mg PO DAILY PRN PRN Reason: Constipation Ferrous Sulfate (Feosol Liq) 300 mg PO DAILY [facility] Last Admin: 03/23/19 09:34 Dose: 300 mg Folic Acid (Folic Acid) 1 mg PO DAILY [facility] Last Admin: 03/23/19 09:24 Dose: 1 mg Furosemide (Lasix) 40 mg IVP DAILY [facility] Last Admin: 03/23/19 10:43 Dose: 40 mg Heparin Sodium (Porcine) (Heparin) 5,000 units SC Q8 [facility]; Protocol Last Admin: 03/23/19 06:17 Dose: 5,000 units Hydralazine HCl (Apresoline) 100 mg PO QID [facility] Last Admin: 03/23/19 09:22 Dose: 100 mg Cefepime HCl (Maxipime 1gm) 1 gm in 100 mls @ 100 mls/hr IVPB Q12 [facility]; Protocol Stop: 03/29/19 10:01 Last Admin: 03/23/19 09:36 Dose: 100 mls/hr Doxycycline Hyclate 100 mg/ (Sodium Chloride) 100 mls @ 100 mls/hr IVPB Q12 [facility]; Protocol Stop: 03/30/19 10:01 Last Admin: 03/23/19 09:19 Dose: 100 mls/hr Insulin Human Regular (Humulin R Med) 0 units SC ACHS [facility]; Protocol Last Admin: 03/23/19 08:40 Dose: Not Given Isosorbide Mononitrate (Ismo) 20 mg PO Q8 [facility] Last Admin: 03/23/19 06:18 Dose: 20 mg Lactobacillus Acidophilus (Bacid Acidophilus) 1 cap PO Q12 [facility] Last Admin: 03/23/19 09:25 Dose: 1 cap Lidocaine (Lidoderm) 1 ea TD DAILY [facility] Last Admin: 03/23/19 09:14 Dose: 1 ea Losartan Potassium (Cozaar) 100 mg PO DAILY [facility] Last Admin: 03/23/19 09:24 Dose: 100 mg Multivitamins (Thera Tab) 1 tab PO 0800 [facility] Last Admin: 03/23/19 09:24 Dose: 1 tab Ondansetron HCl (Zofran Tab) 4 mg PO Q6H PRN PRN Reason: Nausea/Vomiting Oxycodone/Acetaminophen (Percocet 5/325 Mg Tab) 1 tab PO Q6H PRN PRN Reason: Pain, moderate (4-7) Stop: 03/26/19 11:28 Pantoprazole Sodium (Protonix Ec Tab) 40 mg PO 0600 [facility] Promethazine HCl/Dextromethorphan (Phenergan Dm Syrup) 5 ml PO Q8 PRN PRN Reason: Cough Physical Exam - Constitutional Appears: Non-toxic, No Acute Distress - Head Exam Head Exam: ATRAUMATIC, NORMOCEPHALIC - Eye Exam Eye Exam: EOMI, PERRL. absent: Scleral icterus Pupil Exam: PERRL. absent: Miosis, Mydriatic - ENT Exam ENT Exam: Mucous Membranes Moist, Normal Oropharynx - Neck Exam Neck exam: Positive for: Full Rom, Normal Inspection - Respiratory Exam Respiratory Exam: Clear to Auscultation Bilateral. absent: Rales, Rhonchi, Wheezes - Cardiovascular Exam Cardiovascular Exam: RRR, +S1, +S2. absent: Gallop, Rubs - GI/Abdominal Exam GI & Abdominal Exam: Normal Bowel Sounds, Soft. absent: Distended, Firm, Guarding, Organomegaly, Rebound, Rigid, Tenderness - Extremities Exam Extremities exam: Positive for: normal inspection, pedal edema - Neurological Exam Neurological exam: Alert - Psychiatric Exam Psychiatric exam: Normal Affect, Normal Mood - Skin Skin Exam: Dry, Intact, Normal Color, Warm Results - Vital Signs Recent Vital Signs: Last Vital Signs Temp 98.1 F 03/23/19 08:49 Pulse 90 03/23/19 09:23 Resp 20 03/23/19 08:49 BP 193/80 H 03/23/19 10:43 Pulse Ox 95 03/23/19 08:49 - Labs Result Diagrams: 03/23/19 09:00 03/23/19 09:00 Labs: Laboratory Results - last 24 hr 03/22/19 03/22/19 03/22/19 08:55 11:27 15:45 WBC RBC Hgb Hct MCV MCH MCHC RDW Plt Count MPV Sodium Potassium Chloride Carbon Dioxide Anion Gap BUN Creatinine Est GFR ( Amer) Est GFR (Non-Af Amer) POC Glucose (mg/dL) 269 H 169 H Random Glucose Calcium Total Bilirubin AST ALT Alkaline Phosphatase Total Protein Albumin Globulin Albumin/Globulin Ratio Procalcitonin 0.06 L 03/22/19 03/23/19 03/23/19 21:00 07:18 09:00 WBC 13.9 H RBC 3.85 Hgb 11.0 L Hct 34.4 L MCV 89.4 MCH 28.6 MCHC 32.0 RDW 17.0 H Plt Count 442 MPV 10.7 Sodium Potassium Chloride Carbon Dioxide Anion Gap BUN Creatinine Est GFR ( Amer) Est GFR (Non-Af Amer) POC Glucose (mg/dL) 131 H 102 Random Glucose Calcium Total Bilirubin AST ALT Alkaline Phosphatase Total Protein Albumin Globulin Albumin/Globulin Ratio Procalcitonin 03/23/19 03/23/19 09:00 11:25 WBC RBC Hgb Hct MCV MCH MCHC RDW Plt Count MPV Sodium 145 Potassium 4.8 Chloride 113 H Carbon Dioxide 24 Anion Gap 13 BUN 45 H Creatinine 2.1 H Est GFR ( Amer) 28 Est GFR (Non-Af Amer) 23 POC Glucose (mg/dL) 124 H Random Glucose 121 H Calcium 9.6 Total Bilirubin 0.3 AST 21 ALT < 6 L Alkaline Phosphatase 68 Total Protein 7.6 Albumin 3.6 Globulin 4.0 Albumin/Globulin Ratio 0.9 L Procalcitonin Assessment & Plan - Assessment and Plan (Free Text) Assessment: 68 year old female with PMH of dysphagia 2/2 CVA 11/2017 s/p PEG placement, anemia requiring transfusion 2014, CAD s/p stents, CKD, COPD, and Diabetes presenting with shortness of breath. Active treatment of sepsis secondary to HCAP with [facility]. GI consultation for anemia. Prior EGD for PEG placement 11/2017 with unknown findings. Prior incomplete colonoscopy 06/2018 to transverse colon showed two sub-cm tubular adenomas. Plan: -H/H with appropriate response to transfusion, monitor -no signs of overt GI bleed -patient refuses rectal exam -tolerating diet -continue PPI ACB -will benefit from respiratory optimization prior to elective endoscopic evaluation, discussion -patient states she plans to follow up with [facility] where PEG was placed to perform EGD with repeat colonoscopy and evaluation for possible PEG removal - <Jose Newsome - Last Filed: 03/23/19 16:36> Meds - Medications Medications: Current Medications Acetaminophen (Tylenol 325mg Tab) 650 mg PO Q6 PRN PRN Reason: Fever >100.4 F Last Admin: 03/23/19 09:19 Dose: 650 mg Allopurinol (Zyloprim) 100 mg PO DAILY [facility] Last Admin: 03/23/19 09:35 Dose: 100 mg Amlodipine Besylate (Norvasc) 5 mg PO DAILY [facility] Last Admin: 03/23/19 10:42 Dose: 5 mg Aspirin (Ecotrin) 81 mg PO DAILY [facility] Last Admin: 03/23/19 09:23 Dose: 81 mg Atorvastatin Calcium (Lipitor) 80 mg PO DIN [facility] Last Admin: 03/22/19 18:44 Dose: 80 mg Carvedilol (Coreg) 25 mg PO BID [facility] Last Admin: 03/23/19 09:23 Dose: 25 mg Clonidine HCl (Catapres) 0.1 mg PO Q4H PRN PRN Reason: hypertension Divalproex Sodium (Depakote Sprinkles) 125 mg PO Q8 [facility]; Protocol Last Admin: 03/23/19 15:05 Dose: 125 mg Docusate Sodium (Colace) 200 mg PO DAILY PRN PRN Reason: Constipation Ferrous Sulfate (Feosol Liq) 300 mg PO DAILY [facility] Last Admin: 03/23/19 09:34 Dose: 300 mg Folic Acid (Folic Acid) 1 mg PO DAILY [facility] Last Admin: 03/23/19 09:24 Dose: 1 mg Furosemide (Lasix) 40 mg IVP DAILY [facility] Last Admin: 03/23/19 10:43 Dose: 40 mg Heparin Sodium (Porcine) (Heparin) 5,000 units SC Q8 [facility]; Protocol Last Admin: 03/23/19 15:04 Dose: 5,000 units Hydralazine HCl (Apresoline) 100 mg PO QID [facility] Last Admin: 03/23/19 15:50 Dose: Not Given Cefepime HCl (Maxipime 1gm) 1 gm in 100 mls @ 100 mls/hr IVPB Q12 [facility]; Protocol Stop: 03/29/19 10:01 Last Admin: 03/23/19 09:36 Dose: 100 mls/hr Doxycycline Hyclate 100 mg/ (Sodium Chloride) 100 mls @ 100 mls/hr IVPB Q12 [facility]; Protocol Stop: 03/30/19 10:01 Last Admin: 03/23/19 09:19 Dose: 100 mls/hr Insulin Human Regular (Humulin R Med) 0 units SC ACHS [facility]; Protocol Last Admin: 03/23/19 15:51 Dose: Not Given Isosorbide Mononitrate (Ismo) 20 mg PO Q8 [facility] Last Admin: 03/23/19 15:04 Dose: 20 mg Lactobacillus Acidophilus (Bacid Acidophilus) 1 cap PO Q12 [facility] Last Admin: 03/23/19 09:25 Dose: 1 cap Lidocaine (Lidoderm) 1 ea TD DAILY [facility] Last Admin: 03/23/19 09:14 Dose: 1 ea Losartan Potassium (Cozaar) 100 mg PO DAILY [facility] Last Admin: 03/23/19 09:24 Dose: 100 mg Multivitamins (Thera Tab) 1 tab PO 0800 [facility] Last Admin: 03/23/19 09:24 Dose: 1 tab Ondansetron HCl (Zofran Tab) 4 mg PO Q6H PRN PRN Reason: Nausea/Vomiting Oxycodone/Acetaminophen (Percocet 5/325 Mg Tab) 1 tab PO Q6H PRN PRN Reason: Pain, moderate (4-7) Stop: 03/26/19 11:28 Last Admin: 03/23/19 12:42 Dose: 1 tab Pantoprazole Sodium (Protonix Ec Tab) 40 mg PO 0600 [facility] Promethazine HCl/Dextromethorphan (Phenergan Dm Syrup) 5 ml PO Q8 PRN PRN Reason: Cough Last Admin: 03/23/19 11:28 Dose: 5 ml Results - Vital Signs Recent Vital Signs: Last Vital Signs Temp 98.1 F 03/23/19 08:49 Pulse 85 03/23/19 15:04 Resp 20 03/23/19 08:49 BP 188/72 H 03/23/19 15:04 Pulse Ox 95 03/23/19 08:49 - Labs Result Diagrams: 03/23/19 09:00 03/23/19 09:00 Labs: Laboratory Results - last 24 hr 03/22/19 03/23/19 03/23/19 21:00 07:18 09:00 WBC 13.9 H RBC 3.85 Hgb 11.0 L Hct 34.4 L MCV 89.4 MCH 28.6 MCHC 32.0 RDW 17.0 H Plt Count 442 MPV 10.7 Sodium Potassium Chloride Carbon Dioxide Anion Gap BUN Creatinine Est GFR ( Amer) Est GFR (Non-Af Amer) POC Glucose (mg/dL) 131 H 102 Random Glucose Calcium Total Bilirubin AST ALT Alkaline Phosphatase Total Protein Albumin Globulin Albumin/Globulin Ratio 03/23/19 03/23/19 03/23/19 09:00 11:25 15:36 WBC RBC Hgb Hct MCV MCH MCHC RDW Plt Count MPV Sodium 145 Potassium 4.8 Chloride 113 H Carbon Dioxide 24 Anion Gap 13 BUN 45 H Creatinine 2.1 H Est GFR ( Amer) 28 Est GFR (Non-Af Amer) 23 POC Glucose (mg/dL) 124 H 129 H Random Glucose 121 H Calcium 9.6 Total Bilirubin 0.3 AST 21 ALT < 6 L Alkaline Phosphatase 68 Total Protein 7.6 Albumin 3.6 Globulin 4.0 Albumin/Globulin Ratio 0.9 L Attending/Attestation - Attestation I have fully participated in the care of the patient.: Yes I have reviewed all pertinent clinical information: Yes Notes (Text): 03/23/19 16:33 CVA Dysphagia s/p PEG CAD s/p stent CKD COPD DM Dyspnea - pneumonia Anemia - Diet as tolerated - H/H stable, s/p PRBC transfusion, no overt GI blood loss noted. Continue to monitor. - Continue with antibiotic therapy as per ID - Patient would ultimately benefit from endoscopic evaluation for anemia workup following resolution of acute pulmonary issues. As per patient wishes, she requests to have additional workup performed at [facility] where her PEG was placed. No additional planned GI intervention at this time, will sign off case. Please reconsult as necessary, thank you.
--- NOTE | 2019-03-23 12:06 | PN ---
DATE: 03/23/2019 SUBJECTIVE: She is sitting up in bed. She tells me she does like the Depakote sprinkles. She wants the Depakote powder. I do not know if they have them on formulary, we will find out. She is on Apresoline, lactobacillus, Catapres, Colace, Coreg, Cozaar, Depakote, doxycycline IV, Ecotrin, Feosol, folic acid, heparin, Imdur, Lasix IV, Lidoderm, Lipitor, cefepime IV, Norvasc added on today, promethazine, Protonix, multivitamin, Tylenol, Zofran and allopurinol. She is still coughing. PHYSICAL EXAMINATION: VITAL SIGNS: Temperature 98.1, 90 pulse, 193/87 blood pressure and so I added the Norvasc, 20 respiratory rate, 95% O2 sat on room air. HEAD: Atraumatic, normocephalic. HEART: Regular rate. LUNGS: Decreased breath sounds, right is worse than the left. ABDOMEN: Soft. EXTREMITIES: Weak. ASSESSMENT AND PLAN: She is to do physical therapy, out of bed to chair. Labs are pending this morning. Last blood sugar was 131 and was 102, that is on 03/22/2019 and the CBC are pending this morning, I am not sure why. I will continue with intravenous antibiotics. I will give her another dose of intravenous Lasix, increase her blood pressure medication by adding Norvasc. Continue antibiotics as per Infectious Disease and Pulmonary. Continue aggressive treatment and care. Mathieu Odell DO
[2019-03-23] MEDS: Oxycodone/Acetaminophen 5/325 mg Tab PO PRN (12:42)
[2019-03-23 17:27] LABS: URINE BILIRUBIN NEGATIVE (NEGATIVE); URINE BLOOD NEGATIVE (NEGATIVE); URINE GLUCOSE (UA) NEGATIVE (NEGATIVE); URINE LEUKOCYTE ESTERASE NEGATIVE Leu/uL (NEGATIVE); URINE PROTEIN 100 mg/dL (<30 mg/dL); URINE UROBILINOGEN 0.2 E.U./dL (<1 E.U./dL)
[2019-03-23 17:28] LABS: URINE APPEARANCE CLEAR (CLEAR); URINE COLOR YELLOW (YELLOW)
[2019-03-23 17:37] LABS: URINE WBC 0 - 2 /hpf (0-6)
[2019-03-23] MEDS ORDERED: Divalproex 125 mg EC Sprinkle Cap PO SCH (18:00)
--- NOTE | 2019-03-23 18:09 | CON ---
DATE OF CONSULTATION: 03/23/2019 The patient admitted for Dr. Mathieu Odell. REFERRING MD: Dr. Odell. REASON FOR CONSULTATION: Evaluation of the patient unknown to me with a history of chronic kidney disease stage III with difficult to control blood pressure. HISTORY OF PRESENT ILLNESS: The patient is a 68-year-old black female with a long history of hypertension, history of NIDDM, now on insulin, past history of a CVA and TIA, history of her right kidney mass, positive for renal cell carcinoma status post cryoablation earlier this year in [facility], history of anemia, history of concentric LVH. The patient has a PEG tube in place, but she is able to eat. The patient had a negative workup for renal artery stenosis in 2018 as a workup for uncontrolled hypertension. The patient was admitted from [facility] with fevers and right lower lobe pneumonia. Her blood pressure had spiked to 220 systolic with diastolics greater than 100. In part because she had the long cuff on her arm. With the use of a large arm cuff she still has systolics in the 170-180 range. Her creatinine is 2.1 with a BUN of 45. This is within her baseline range as well. We are asked to evaluate the patient for her difficult to control hypertension, chronic kidney disease. 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 History of anemia. History of right renal cell carcinoma, status post cryoablation. Negative workup for renal artery stenosis. Positive concentric LVH. The patient has an indwelling PEG tube. MEDICATIONS: At home or in the snf include that of Ultram, hydralazine, clonidine, Diovan which has been discontinued, Protonix, Naphcon ophthalmic ointments, Procardia, magnesium, Imodium, Tradjenta, lactobacillus, insulin, Isordil, folic acid, Uloric, Coreg, Lipitor, aspirin, and Tylenol p.r.n. ALLERGIES: THE PATIENT IS ALLERGIC TO LEVAQUIN, SHELLFISH, AND MORPHINE. CURRENT MEDICATIONS: In hospital include that of hydralazine, lactobacillus, clonidine, Colace, Coreg, losartan has been discontinued, Depakote, doxycycline, Ecotrin, oral iron, folic acid, heparin, insulin, Isordil, IV Lasix, Lidoderm, Lipitor, Maxipime, Norvasc, Percocet, Phenergan, Protonix, MultiVites, Tylenol, Zofran, and Zyloprim 100 mg. SOCIAL HISTORY: No history of cigarette smoking. No history of alcohol use. FAMILY HISTORY: Mother of complications of kidney disease. She was on dialysis. She had diabetes and hypertension. Father of complications of liver disease. REVIEW OF SYSTEMS: Ten plus systems reviewed with the patient. GENERAL: The patient states her appetite has been fair. Her weight has remained stable. HEENT: ENT: She is blind in her left eye. Hearing is okay. PULMONARY: Shortness of breath secondary to the recent pneumonia. No history of asthma. No history of COPD. CARDIAC: No history of coronary artery disease. Positive concentric LVH. GASTROINTESTINAL: No nausea, vomiting, diarrhea, constipation, or abdominal pain. GENITOURINARY: History of chronic kidney disease stage III/IV. NEWS REPORTER: Postmenopausal. ENDOCRINE: History of diabetes, now on insulin, MUSCULOSKELETAL: No complaints. NEURO: Past history of CVA, TIA. No history of syncope. HEME/ONC: History of anemia perhaps secondary to chronic kidney disease. Past history of renal cell carcinoma, status post cryoablation. PSYCHIATRIC: History is negative. PHYSICAL EXAMINATION: GENERAL: The patient is currently seen on 3R. She appears to be comfortable in bed. VITAL SIGNS: Blood pressure currently 178/83, pulse of 97, temperature is now 98.1, respiratory rate is 20. HEENT: Exam normocephalic, atraumatic. She is blind in her left eye. Conjunctivae pink. Sclerae nonicteric. Posterior pharynx is normal. NECK: Supple. No neck vein distention, no thyromegaly, no lymphadenopathy, no bruits. CHEST: Clear to auscultation and percussion with decreased breath sounds at the right base. No rales, rhonchi, or wheezing appreciated. CARDIOVASCULAR: Shows a regular rate and rhythm without audible murmurs, rubs, or gallops. ABDOMEN: Soft. Bowel sounds normal. No rebound, guarding, or masses. Positive PEG tube in place. BACK: No CVAT. No spinal tenderness. EXTREMITIES: Show trace to 1+ lower extremity pitting edema. No cyanosis or clubbing. Distal lower extremity pulses are 1+ bilaterally. NEURO: Shows her to be alert and oriented x3 with no gross focal motor or sensory deficits noted. LABORATORY DATA AND IMAGING STUDIES: Admitting chest x-ray showed a right lower lobe infiltrate. Renal scan done in 08/2018 was negative for renal artery stenosis. Abdominal CT scan done in the summer of 2017 showed a mass in her right kidney. She also had a mass in her left kidney. No hydronephrosis. Renal ultrasound done in the spring showed normal echogenicity of her kidneys. Labs: CBC: White blood cell count 13.9, hemoglobin 11 with a platelet count of 442,000. Coags are normal. Blood gas on admission pH of 7.40 with a pCO2 of 38 and a pO2 of 49. Chemistries: BUN was 60. On admission it is currently 45. Her baseline is anywhere from the mid 30s to the upper 80s. Creatinine is 2.1, it was 2.9 on admission. Her baseline is anywhere from 1.9 into the mid 3 range. Her potassium level on admission was 5.4. It is currently 4.8. CO2 is 24. Calcium is 9.6. Liver enzymes are normal. Albumin level is 3.6. Previous PTH level was elevated. Previous vitamin D levels were normal. Urines, none were done presently. Urines in the past showed proteinuria. Microbiology, blood cultures are negative at 48 hours. ASSESSMENT: 1. Chronic kidney disease stage III/IV. Her present BUN of 45 with a creatinine of 2.1 is in the lower range of her baseline. She does have extensive proteinuria. This is quite possibly secondary to hypertension and diabetes. The patient did have a negative workup for renal artery stenosis back in 2018. I will obtain a 24-hour urine for creatinine clearance and protein during her present hospitalization. 2. Uncontrolled hypertension. Part of the issue was the fact that they were using a small cuff on the large arm. However, her blood pressure still remains elevated with systolics in the one 70s. The patient is not a good candidate for GRISELDA inhibitors, angiotensin receptor blockers because of her tendency toward hyperkalemia and her worsening renal parameters. Presently, she is being maintained on hydralazine, clonidine, Coreg, Lasix, and amlodipine. We will try and maximize these medications to improve her blood pressure control. 3. History of a right kidney mass, right renal cell carcinoma, status post cryoablation. 4. History of [id number] diabetes mellitus, now on insulin. The patient will continue sliding-scale insulin. Quite possibly the proteinuria and chronic kidney disease are in part related to diabetes. 4. History of anemia in part secondary to chronic kidney disease. The patient would be a candidate for potential iron therapy with Aranesp. Presently, her hemoglobin is 11, so these medications are not needed to be started now. 5. History of concentric left ventricular hypertrophy. This is from longstanding hypertension. 6. History of secondary hyperparathyroidism. This is secondary to chronic kidney disease. We will repeat her phosphorus levels. Checked PTH and check her vitamin D 25 hydroxy level. 7. Hyperlipidemia, controlled with diet and medical therapy. PLAN: 1. Plan as outlined above. 2. Monitor accurate I's and O's. 3. Follow up blood pressure closely using the appropriate cuff. 4. Titrate blood pressure medications to achieve systolic blood pressures in the 140-150 range, diastolics appear to be okay in the 70-80 range. 5. Avoid GRISELDA inhibitors, angiotensin receptor blockers in light of her hyperkalemia and tendency toward elevated BUN and creatinine levels. 6. Obtain 24-hour urine for creatinine clearance and protein. 7. The patient should be on a renal diet. 8. We will follow the patient closely along with you during the hospitalization. 9. Complete the course of antibiotics for her right lower lobe pneumonia. The patient is being followed by Pulmonary and ID. Thank you for letting me partake and share in the care of your patient. Moi Elder MD
[2019-03-24] MEDS: Pantoprazole 40 mg EC Tab PO SCH (05:36)
[2019-03-24] MEDS: Divalproex 125 mg EC Sprinkle Cap PO SCH ×3 (05:37→22:32)
[2019-03-24] MEDS: Insulin Reg-MEDIUM-Coverage SC SCH ×4 (08:04→23:03)
--- NOTE | 2019-03-24 08:17 | PN ---
DATE: 03/24/2019 SUBJECTIVE: The patient appears comfortable this morning. She is not short of breath at rest. PHYSICAL EXAMINATION: VITAL SIGNS: (Last noted in the computer): Temperature is 98.8, pulse 86, respirations 18/20, blood pressure 198/78. Oxygen saturation on room air - 96%. HEENT: Normocephalic, atraumatic. No JVD. CARDIOVASCULAR: Positive S1, S2. No S3 gallop. LUNGS: Crackles - right base. No rhonchi. No wheezing. EXTREMITIES: Mild edema, no cyanosis, no clubbing. Calves are nontender to palpation. GASTROINTESTINAL: Abdomen is soft, nontender and nondistended. Bowel sounds are positive. There is a feeding tube in place. SKIN: No acute rash. NEUROLOGIC: Exam limited at the present time. IMPRESSION: 1. Right lower lobe pneumonia. 2. Anemia. 3. Renal insufficiency. 4. Diabetes mellitus. PLAN: The patient appears comfortable this morning. She is not short of breath at rest. She does state to feeling better overall. I did discuss the case with the night nurse at length. The night nurse stated that the patient had an uneventful night. On physical exam, there is no significant bronchospasm noted. In addition, there is no significant alveolar arterial gradient. I will continue the aspiration precautions for now. The patient remains on antibiotic therapy - as per Infectious Disease. Temperatures have now resolved. There is a persistent mild leukocytosis. Repeat a.m. labs are pending. Inputs by Gastroenterology and Renal are also noted. Clinical status of the patient is certainly improved - compared to the initial presentation. I will order a repeat chest x-ray, and check that when feasible. I will discuss the above with Dr. Odell. Noe Velásquez MD MTDIsaac
[2019-03-24] MEDS: Multivitamin Therapeutic Tab PO SCH (08:31)
[2019-03-24 08:54] LABS: HEMOGLOBIN 10.5 g/dL (12.0-16.0); MEAN CELL VOLUME 89.1 fl (80.0-105.0); MEAN CORPUSCULAR HEMOGLOBIN 27.9 pg (25.0-35.0); MEAN CORPUSCULAR HGB CONC 31.3 g/dl (31.0-37.0); MEAN PLATELET VOLUME 10.3 fl (7.0-11.0); RBC 3.76 10^6/uL (3.5-6.1); RED CELL DISTRIBUTION WIDTH 16.4 % (11.5-14.5); WHITE BLOOD COUNT 10.8 10^3/uL (4.5-11.0)
[2019-03-24] MEDS: Oxycodone/Acetaminophen 5/325 mg Tab PO PRN (09:04)
[2019-03-24] MEDS: Cefepime 1gm in NS 100ml 1 GM/100 ML BAG IVPB SCH ×2 (09:04→22:25)
[2019-03-24 09:33] LABS: ALB/GLOB RATIO 0.9 (1.1-1.8); ALBUMIN 3.6 g/dL (3.0-4.8); CALCIUM 9.6 mg/dL (8.4-10.5)
[2019-03-24] MEDS: Promethazine DM 6.25 mg-15 mg/5 ml Syrup PO PRN (10:30)
[2019-03-24] MEDS: Lactobacillus Acidophilus 500 MU Cap PO SCH ×2 (10:30→22:31)
[2019-03-24] MEDS: Lidocaine 5% Patch TD SCH (10:31)
[2019-03-24] MEDS: Ferrous Sulfate 300 mg/5 mL Liq UD PO SCH (11:41)
--- NOTE | 2019-03-24 11:45 | PN ---
DATE: 03/24/2019 SUBJECTIVE: She is sitting up in bed doing better. She is breathing better overall. MEDICATIONS: She is on Apresoline, Bacid, Catapres, Colace, Cozaar, Coreg, Depakote, Doryx, Ecotrin, Feosol, folic acid, heparin, insulin, , Lasix, Lidoderm, Lipitor, Maxipime, Norvasc, Percocet, Phenergan, Protonix, Thera-Tabs, Tylenol, Zofran, and Zyloprim. PHYSICAL EXAMINATION: VITAL SIGNS: She has a temperature of 98.8, 89 pulse, blood pressure is down to 182/87. HEENT: Head is atraumatic, normocephalic. HEART: Regular rate. LUNGS: Decreased breath sounds. ABDOMEN: Soft. EXTREMITIES: No edema. LABORATORY DATA: She has 13.9 white count, still maintaining a 13.11 hemoglobin, 34.4 hematocrit with a 442 platelets. She has a 145 sodium, potassium 4.8, BUN 45, creatinine 2.1 which is improving. Last blood sugar is 106, calcium is 9.6, total bili is 0.3. AST is 21, ALT is 6, alk phos is 68, total protein 7.6. ASSESSMENT AND PLAN: She is being seen by Pulmonary, Renal, Gastroenterology and Infectious Disease. He had multiple issues right lower lobe pneumonia, anemia, renal insufficiency, diabetes mellitus. As per Infectious Disease tablets I well. In the mean time she is on IV antibiotics and treatment as she gets better for an infection. Mathieu Odell DO MTDD
--- NOTE | 2019-03-24 12:56 | CP.PCM.PN ---
<Brian Veliz - Last Filed: 03/24/19 15:16> Subjective - Date & Time of Evaluation Date of Evaluation: 03/24/19 Time of Evaluation: 08:05 - Subjective Subjective: Infectious disease progress note: Patient seen and examined at bedside. No acute events overnight. C/o of mild cough. No other complaints. 12 point ROS performed and negative unless stated above. Objective - Vital Signs/Intake and Output Vital Signs (last 24 hours): Temp Pulse Resp BP Pulse Ox 94.0 F L 89 20 190/84 H 96 03/24/19 06:00 03/24/19 12:04 03/23/19 16:42 03/24/19 12:04 03/23/19 16:42 Intake and Output: 03/24/19 03/24/19 06:59 18:59 Output Total 400 Balance -400 - Medications Medications: Current Medications Acetaminophen (Tylenol 325mg Tab) 650 mg PO Q6 PRN PRN Reason: Fever >100.4 F Last Admin: 03/23/19 09:19 Dose: 650 mg Allopurinol (Zyloprim) 100 mg PO DAILY [facility] Last Admin: 03/24/19 10:40 Dose: 100 mg Amlodipine Besylate (Norvasc) 5 mg PO DAILY [facility] Last Admin: 03/24/19 09:00 Dose: 5 mg Aspirin (Ecotrin) 81 mg PO DAILY [facility] Last Admin: 03/24/19 10:30 Dose: 81 mg Atorvastatin Calcium (Lipitor) 80 mg PO DIN [facility] Last Admin: 03/23/19 17:49 Dose: 80 mg Carvedilol (Coreg) 25 mg PO BID [facility] Last Admin: 03/24/19 11:46 Dose: Not Given Clonidine HCl (Catapres) 0.1 mg PO Q4H PRN PRN Reason: hypertension Last Admin: 03/24/19 12:04 Dose: 0.1 mg Clonidine HCl (Catapres) 0.1 mg PO BID [facility] Divalproex Sodium (Depakote Sprinkles) 125 mg PO Q8 [facility]; Protocol Last Admin: 03/24/19 05:37 Dose: 125 mg Docusate Sodium (Colace) 200 mg PO DAILY PRN PRN Reason: Constipation Doxycycline Hyclate (Doryx) 100 mg PO Q12 [facility]; Protocol Stop: 03/28/19 22:01 Last Admin: 03/24/19 10:31 Dose: 100 mg Ferrous Sulfate (Feosol Liq) 300 mg PO DAILY [facility] Last Admin: 03/24/19 11:41 Dose: Not Given Folic Acid (Folic Acid) 1 mg PO DAILY [facility] Last Admin: 03/24/19 10:31 Dose: 1 mg Furosemide (Lasix) 40 mg IVP DAILY [facility] Last Admin: 03/24/19 10:30 Dose: 40 mg Heparin Sodium (Porcine) (Heparin) 5,000 units SC Q8 [facility]; Protocol Last Admin: 03/24/19 05:38 Dose: 5,000 units Hydralazine HCl (Apresoline) 100 mg PO QID [facility] Last Admin: 03/24/19 11:46 Dose: Not Given Cefepime HCl (Maxipime 1gm) 1 gm in 100 mls @ 100 mls/hr IVPB Q12 [facility]; Protocol Stop: 03/29/19 10:01 Last Admin: 03/24/19 09:04 Dose: 100 mls/hr Insulin Human Regular (Humulin R Med) 0 units SC ACHS [facility]; Protocol Last Admin: 03/24/19 11:41 Dose: Not Given Isosorbide Mononitrate (Ismo) 20 mg PO Q8 [facility] Last Admin: 03/24/19 05:37 Dose: 20 mg Lactobacillus Acidophilus (Bacid Acidophilus) 1 cap PO Q12 [facility] Last Admin: 03/24/19 10:30 Dose: 1 cap Lidocaine (Lidoderm) 1 ea TD DAILY [facility] Last Admin: 03/24/19 10:31 Dose: 1 ea Losartan Potassium (Cozaar) 100 mg PO DAILY [facility] Last Admin: 03/23/19 09:24 Dose: 100 mg Multivitamins (Thera Tab) 1 tab PO 0800 [facility] Last Admin: 03/24/19 08:31 Dose: 1 tab Ondansetron HCl (Zofran Tab) 4 mg PO Q6H PRN PRN Reason: Nausea/Vomiting Oxycodone/Acetaminophen (Percocet 5/325 Mg Tab) 1 tab PO Q6H PRN PRN Reason: Pain, moderate (4-7) Stop: 03/26/19 11:28 Last Admin: 03/24/19 09:04 Dose: 1 tab Pantoprazole Sodium (Protonix Ec Tab) 40 mg PO 0600 [facility] Last Admin: 03/24/19 05:36 Dose: 40 mg Promethazine HCl/Dextromethorphan (Phenergan Dm Syrup) 5 ml PO Q8 PRN PRN Reason: Cough Last Admin: 03/24/19 10:30 Dose: 5 ml - Labs Labs: 03/24/19 08:40 03/24/19 08:40 PT 12.6 SECONDS (9.4-12.5) H 03/21/19 12:00 INR 1.12 03/21/19 12:00 APTT 31.9 Seconds (26.9-38.3) 03/21/19 12:00 - Constitutional Appears: No Acute Distress - Head Exam Head Exam: ATRAUMATIC, NORMOCEPHALIC - Eye Exam Eye Exam: EOMI - Respiratory Exam Respiratory Exam: Clear to Ausculation Bilateral. absent: Rales, Wheezes - Cardiovascular Exam Cardiovascular Exam: REGULAR RHYTHM, +S1, +S2 - GI/Abdominal Exam GI & Abdominal Exam: Soft. absent: Tenderness - Skin Skin Exam: Dry, Warm Assessment and Plan - Assessment and Plan (Free Text) Assessment: Severe sepsis secondary to right lower lobe HCAP Acute on chronic kidney disease Hyperkalemia Anemia S/P 2 units PRBC History of heart failure COPD CVA Diabetic type II Left eye blindness Obesity WBC improving Continue cefepime day 3 and doxycycline day 3, upon d/c she can go with PO doxy 100mg BID for 5 days Follow-up septic work-up - neg thus far Procalcitonin neg Continue to monitor for any changes Case and plan to be reviewed and discussed with Dr. Luna <Garcia Luna - Last Filed: 03/24/19 21:52> Objective - Vital Signs/Intake and Output Vital Signs (last 24 hours): Temp Pulse Resp BP Pulse Ox 98.2 F 92 H 20 206/84 H 98 03/24/19 16:19 03/24/19 18:31 03/24/19 16:19 03/24/19 18:31 03/24/19 16:19 Intake and Output: 03/24/19 03/25/19 18:59 06:59 Intake Total 360 Balance 360 - Medications Medications: Current Medications Acetaminophen (Tylenol 325mg Tab) 650 mg PO Q6 PRN PRN Reason: Fever >100.4 F Last Admin: 03/23/19 09:19 Dose: 650 mg Allopurinol (Zyloprim) 100 mg PO DAILY [facility] Last Admin: 03/24/19 10:40 Dose: 100 mg Aspirin (Ecotrin) 81 mg PO DAILY [facility] Last Admin: 03/24/19 10:30 Dose: 81 mg Atorvastatin Calcium (Lipitor) 80 mg PO DIN [facility] Last Admin: 03/24/19 17:28 Dose: 80 mg Carvedilol (Coreg) 25 mg PO BID [facility] Last Admin: 03/24/19 18:31 Dose: 25 mg Clonidine HCl (Catapres) 0.1 mg PO Q4H PRN PRN Reason: hypertension Last Admin: 03/24/19 12:04 Dose: 0.1 mg Clonidine HCl (Catapres) 0.1 mg PO TID [facility] Diltiazem HCl (Cardizem Cd) 180 mg PO DAILY [facility] Divalproex Sodium (Depakote Sprinkles) 125 mg PO Q8 [facility]; Protocol Last Admin: 03/24/19 14:43 Dose: 125 mg Docusate Sodium (Colace) 200 mg PO DAILY PRN PRN Reason: Constipation Doxycycline Hyclate (Doryx) 100 mg PO Q12 [facility]; Protocol Stop: 03/28/19 22:01 Last Admin: 03/24/19 10:31 Dose: 100 mg Ferrous Sulfate (Feosol Liq) 300 mg PO DAILY [facility] Last Admin: 03/24/19 11:41 Dose: Not Given Folic Acid (Folic Acid) 1 mg PO DAILY [facility] Last Admin: 03/24/19 10:31 Dose: 1 mg Furosemide (Lasix) 40 mg IVP DAILY [facility] Last Admin: 03/24/19 10:30 Dose: 40 mg Heparin Sodium (Porcine) (Heparin) 5,000 units SC Q8 [facility]; Protocol Last Admin: 03/24/19 14:43 Dose: 5,000 units Hydralazine HCl (Apresoline) 100 mg PO QID [facility] Last Admin: 03/24/19 17:27 Dose: 100 mg Cefepime HCl (Maxipime 1gm) 1 gm in 100 mls @ 100 mls/hr IVPB Q12 [facility]; Protocol Stop: 03/29/19 10:01 Last Admin: 03/24/19 09:04 Dose: 100 mls/hr Insulin Human Regular (Humulin R Med) 0 units SC ACHS [facility]; Protocol Last Admin: 03/24/19 15:52 Dose: Not Given Isosorbide Mononitrate (Ismo) 20 mg PO Q8 [facility] Last Admin: 03/24/19 14:43 Dose: 20 mg Lactobacillus Acidophilus (Bacid Acidophilus) 1 cap PO Q12 [facility] Last Admin: 03/24/19 10:30 Dose: 1 cap Lidocaine (Lidoderm) 1 ea TD DAILY [facility] Last Admin: 03/24/19 10:31 Dose: 1 ea Losartan Potassium (Cozaar) 100 mg PO DAILY [facility] Last Admin: 03/23/19 09:24 Dose: 100 mg Multivitamins (Thera Tab) 1 tab PO 0800 [facility] Last Admin: 03/24/19 08:31 Dose: 1 tab Ondansetron HCl (Zofran Tab) 4 mg PO Q6H PRN PRN Reason: Nausea/Vomiting Oxycodone/Acetaminophen (Percocet 5/325 Mg Tab) 1 tab PO Q6H PRN PRN Reason: Pain, moderate (4-7) Stop: 03/26/19 11:28 Last Admin: 03/24/19 09:04 Dose: 1 tab Pantoprazole Sodium (Protonix Ec Tab) 40 mg PO 0600 [facility] Last Admin: 03/24/19 05:36 Dose: 40 mg Promethazine HCl/Dextromethorphan (Phenergan Dm Syrup) 5 ml PO Q8 PRN PRN Reason: Cough Last Admin: 03/24/19 10:30 Dose: 5 ml - Labs Labs: 03/24/19 08:40 03/24/19 17:34 PT 12.6 SECONDS (9.4-12.5) H 03/21/19 12:00 INR 1.12 03/21/19 12:00 APTT 31.9 Seconds (26.9-38.3) 03/21/19 12:00 Attending/Attestation - Attestation I have personally seen and examined this patient.: Yes I have fully participated in the care of the patient.: Yes I have reviewed all pertinent clinical information, including history, physical exam and plan: Yes
--- NOTE | 2019-03-24 16:23 | CP.PCM.APN ---
Subjective - Date & Time of Evaluation Date of Evaluation: 03/24/19 Time of Evaluation: 11:00 - Subjective Subjective: Pt. seen and examined, still with cough, denied shortness of breath. Objective - Vital Signs/Intake and Output Vital Signs (last 24 hours): Temp Pulse Resp BP Pulse Ox 98.2 F 82 20 179/75 H 98 03/24/19 16:19 03/24/19 16:19 03/24/19 16:19 03/24/19 16:19 03/24/19 16:19 Intake and Output: 03/24/19 03/24/19 06:59 18:59 Output Total 400 Balance -400 - Medications Medications: Current Medications Acetaminophen (Tylenol 325mg Tab) 650 mg PO Q6 PRN PRN Reason: Fever >100.4 F Last Admin: 03/23/19 09:19 Dose: 650 mg Allopurinol (Zyloprim) 100 mg PO DAILY [facility] Last Admin: 03/24/19 10:40 Dose: 100 mg Amlodipine Besylate (Norvasc) 5 mg PO DAILY [facility] Last Admin: 03/24/19 09:00 Dose: 5 mg Aspirin (Ecotrin) 81 mg PO DAILY [facility] Last Admin: 03/24/19 10:30 Dose: 81 mg Atorvastatin Calcium (Lipitor) 80 mg PO DIN [facility] Last Admin: 03/23/19 17:49 Dose: 80 mg Carvedilol (Coreg) 25 mg PO BID [facility] Last Admin: 03/24/19 11:46 Dose: Not Given Clonidine HCl (Catapres) 0.1 mg PO Q4H PRN PRN Reason: hypertension Last Admin: 03/24/19 12:04 Dose: 0.1 mg Clonidine HCl (Catapres) 0.1 mg PO BID [facility] Divalproex Sodium (Depakote Sprinkles) 125 mg PO Q8 [facility]; Protocol Last Admin: 03/24/19 14:43 Dose: 125 mg Docusate Sodium (Colace) 200 mg PO DAILY PRN PRN Reason: Constipation Doxycycline Hyclate (Doryx) 100 mg PO Q12 [facility]; Protocol Stop: 03/28/19 22:01 Last Admin: 03/24/19 10:31 Dose: 100 mg Ferrous Sulfate (Feosol Liq) 300 mg PO DAILY [facility] Last Admin: 03/24/19 11:41 Dose: Not Given Folic Acid (Folic Acid) 1 mg PO DAILY [facility] Last Admin: 03/24/19 10:31 Dose: 1 mg Furosemide (Lasix) 40 mg IVP DAILY [facility] Last Admin: 03/24/19 10:30 Dose: 40 mg Heparin Sodium (Porcine) (Heparin) 5,000 units SC Q8 [facility]; Protocol Last Admin: 03/24/19 14:43 Dose: 5,000 units Hydralazine HCl (Apresoline) 100 mg PO QID [facility] Last Admin: 03/24/19 14:44 Dose: 100 mg Cefepime HCl (Maxipime 1gm) 1 gm in 100 mls @ 100 mls/hr IVPB Q12 [facility]; Protocol Stop: 03/29/19 10:01 Last Admin: 03/24/19 09:04 Dose: 100 mls/hr Insulin Human Regular (Humulin R Med) 0 units SC ACHS [facility]; Protocol Last Admin: 03/24/19 15:52 Dose: Not Given Isosorbide Mononitrate (Ismo) 20 mg PO Q8 [facility] Last Admin: 03/24/19 14:43 Dose: 20 mg Lactobacillus Acidophilus (Bacid Acidophilus) 1 cap PO Q12 [facility] Last Admin: 03/24/19 10:30 Dose: 1 cap Lidocaine (Lidoderm) 1 ea TD DAILY [facility] Last Admin: 03/24/19 10:31 Dose: 1 ea Losartan Potassium (Cozaar) 100 mg PO DAILY [facility] Last Admin: 03/23/19 09:24 Dose: 100 mg Multivitamins (Thera Tab) 1 tab PO 0800 [facility] Last Admin: 03/24/19 08:31 Dose: 1 tab Ondansetron HCl (Zofran Tab) 4 mg PO Q6H PRN PRN Reason: Nausea/Vomiting Oxycodone/Acetaminophen (Percocet 5/325 Mg Tab) 1 tab PO Q6H PRN PRN Reason: Pain, moderate (4-7) Stop: 03/26/19 11:28 Last Admin: 03/24/19 09:04 Dose: 1 tab Pantoprazole Sodium (Protonix Ec Tab) 40 mg PO 0600 [facility] Last Admin: 03/24/19 05:36 Dose: 40 mg Promethazine HCl/Dextromethorphan (Phenergan Dm Syrup) 5 ml PO Q8 PRN PRN Reason: Cough Last Admin: 03/24/19 10:30 Dose: 5 ml - Labs Labs: 03/24/19 08:40 03/24/19 08:40 PT 12.6 SECONDS (9.4-12.5) H 03/21/19 12:00 INR 1.12 03/21/19 12:00 APTT 31.9 Seconds (26.9-38.3) 03/21/19 12:00 - Constitutional Appears: Well, Non-toxic - Head Exam Head Exam: NORMOCEPHALIC - Eye Exam Eye Exam: Normal appearance - ENT Exam ENT Exam: Mucous Membranes Moist, Normal Exam - Neck Exam Neck Exam: Full ROM - Respiratory Exam Respiratory Exam: Clear to Ausculation Bilateral - Cardiovascular Exam Cardiovascular Exam: REGULAR RHYTHM, +S1, +S2 - GI/Abdominal Exam GI & Abdominal Exam: Soft Additional comments: Peg tube noted, intact. - Rectal Exam Rectal Exam: Deferred - Exam Exam: absent: Circumcision, NORMAL INSPECTION, Scrotal Swelling, Testicular Tenderness, Uretheral Discharge, Testicular Vertical Lie, Bladder Distension External exam: absent: Ecchymosis, Erythema, Lacerations, Lesions, NORMAL EXTERNAL EXAM, Swelling Speculum exam: absent: Cervical Discharge, Erythema, Foreign Body, Laceration, NORMAL SPECULUM EXAM, Tissue, Vaginal Bleeding, Vaginal Discharge Bimanual exam: absent: Adenexal Mass, Adnexal, Cervical Motion Tendernes, NORMAL BIMANUAL EXAM, Uterine Enlargement, Uterine Tenderness - Extremities Exam Extremities Exam: Full ROM - Neurological Exam Neurological Exam: Alert, Awake - Psychiatric Exam Psychiatric exam: Normal Affect, Normal Mood - Skin Skin Exam: Dry, Intact, Normal Color, Warm Assessment and Plan - Assessment and Plan (Free Text) Assessment: ITS Impressions Chest X-Ray 03/21/19 12:11 IMPRESSION: Right lower lobe infiltrate, probable pneumonia Laboratory Tests 03/21/19 03/21/19 03/21/19 12:00 12:00 12:00 WBC 13.1 H D RBC 2.81 L Hgb 7.9 L Hct 25.1 L MCV 89.3 MCH 28.1 MCHC 31.5 RDW 16.6 H Plt Count 351 MPV 11.0 Neut % (Auto) 79.7 H Lymph % (Auto) 12.2 L [place] % (Auto) 7.3 H Eos % (Auto) 0.7 L Baso % (Auto) 0.1 Lymph # (Auto) 1.6 [place] # (Auto) 1.0 H Eos # (Auto) 0.1 Baso # (Auto) 0.01 Absolute Neuts (auto) 10.43 H PT 12.6 H INR 1.12 APTT 31.9 pO2 VBG pH VBG pCO2 VBG HCO3 VBG Total CO2 VBG O2 Sat (Calc) VBG Base Excess VBG Potassium Glucose Lactate FiO2 Crit Value Called To Crit Value Called By Blood Gas Notified Time Sodium 142 Potassium 5.4 H Chloride 109 H Carbon Dioxide 22 Anion Gap 17 BUN 63 H Creatinine 2.9 H Est GFR ( Amer) 20 Est GFR (Non-Af Amer) 16 POC Glucose (mg/dL) Random Glucose 104 Calcium 9.7 Phosphorus 4.6 H Magnesium 2.4 H Total Bilirubin 0.3 AST 22 ALT 11 Alkaline Phosphatase 68 Troponin I < 0.01 D NT-Pro-B Natriuret Pep 495 H Total Protein 7.7 Albumin 3.8 Globulin 3.9 Albumin/Globulin Ratio 1.0 L 25-OH Vitamin D Total Procalcitonin PTH Intact Whole Molec Venous Blood Potassium Urine Color Urine Appearance Urine pH Ur Specific [place] Urine Protein Urine Glucose (UA) Urine Ketones Urine Blood Urine Nitrate Urine Bilirubin Urine Urobilinogen Ur Leukocyte Esterase Urine RBC Urine WBC Ur Epithelial Cells Ur L.pneumophila Ag Blood Type Antibody Screen Crossmatch BBK History Checked 03/21/19 03/21/19 03/21/19 12:09 12:30 15:25 WBC RBC Hgb Hct MCV MCH MCHC RDW Plt Count MPV Neut % (Auto) Lymph % (Auto) [place] % (Auto) Eos % (Auto) Baso % (Auto) Lymph # (Auto) [place] # (Auto) Eos # (Auto) Baso # (Auto) Absolute Neuts (auto) PT INR APTT pO2 49 VBG pH 7.40 VBG pCO2 38.0 L VBG HCO3 23.5 VBG Total CO2 24.7 VBG O2 Sat (Calc) 89.9 H VBG Base Excess -1.1 L VBG Potassium 6.6 H* Glucose 97 Lactate 0.7 FiO2 21.0 Crit Value Called To Dr umanzor Crit Value Called By [facility] Blood Gas Notified Time 1242 Sodium 137.0 Potassium Chloride 110.0 H Carbon Dioxide Anion Gap BUN Creatinine Est GFR ( Amer) Est GFR (Non-Af Amer) POC Glucose (mg/dL) 114 H Random Glucose Calcium Phosphorus Magnesium Total Bilirubin AST ALT Alkaline Phosphatase Troponin I NT-Pro-B Natriuret Pep Total Protein Albumin Globulin Albumin/Globulin Ratio 25-OH Vitamin D Total Procalcitonin PTH Intact Whole [place] Venous Blood Potassium 6.6 H* Urine Color Urine Appearance Urine pH Ur Specific [place] Urine Protein Urine Glucose (UA) Urine Ketones Urine Blood Urine Nitrate Urine Bilirubin Urine Urobilinogen Ur Leukocyte Esterase Urine RBC Urine WBC Ur Epithelial Cells Ur L.pneumophila Ag Blood Type O POSITIVE Antibody Screen Negative Crossmatch See Detail BBK History Checked Patient has bt 03/21/19 03/21/19 03/22/19 16:30 21:44 07:15 WBC 13.6 H RBC 3.51 Hgb 9.9 L D Hct 31.0 L MCV 88.3 MCH 28.2 MCHC 31.9 RDW 16.5 H Plt Count 387 MPV 11.0 Neut % (Auto) Lymph % (Auto) [place] % (Auto) Eos % (Auto) Baso % (Auto) Lymph # (Auto) [place] # (Auto) Eos # (Auto) Baso # (Auto) Absolute Neuts (auto) PT INR APTT pO2 VBG pH VBG pCO2 VBG HCO3 VBG Total CO2 VBG O2 Sat (Calc) VBG Base Excess VBG Potassium Glucose Lactate FiO2 Crit Value Called To Crit Value Called By Blood Gas Notified Time Sodium Potassium Chloride Carbon Dioxide Anion Gap BUN Creatinine Est GFR ( Amer) Est GFR (Non-Af Amer) POC Glucose (mg/dL) 120 H 191 H Random Glucose Calcium Phosphorus Magnesium Total Bilirubin AST ALT Alkaline Phosphatase Troponin I NT-Pro-B Natriuret Pep Total Protein Albumin Globulin Albumin/Globulin Ratio 25-OH Vitamin D Total Procalcitonin PTH Intact Whole [place] Venous Blood Potassium Urine Color Urine Appearance Urine pH Ur Specific [place] Urine Protein Urine Glucose (UA) Urine Ketones Urine Blood Urine Nitrate Urine Bilirubin Urine Urobilinogen Ur Leukocyte Esterase Urine RBC Urine WBC Ur Epithelial Cells Ur L.pneumophila Ag Blood Type Antibody Screen Crossmatch BBK History Checked 03/22/19 03/22/19 03/22/19 07:15 08:55 08:55 WBC RBC Hgb Hct MCV MCH MCHC RDW Plt Count MPV Neut % (Auto) Lymph % (Auto) [place] % (Auto) Eos % (Auto) Baso % (Auto) Lymph # (Auto) [place] # (Auto) Eos # (Auto) Baso # (Auto) Absolute Neuts (auto) PT INR APTT pO2 VBG pH VBG pCO2 VBG HCO3 VBG Total CO2 VBG O2 Sat (Calc) VBG Base Excess VBG Potassium Glucose Lactate FiO2 Crit Value Called To Crit Value Called By Blood Gas Notified Time Sodium 146 Potassium 4.7 Chloride 115 H Carbon Dioxide 22 Anion Gap 15 BUN 54 H Creatinine 2.6 H Est GFR ( Amer) 22 Est GFR (Non-Af Amer) 18 POC Glucose (mg/dL) 128 H Random Glucose 118 H Calcium 9.4 Phosphorus Magnesium Total Bilirubin 0.2 AST 18 ALT 10 Alkaline Phosphatase 62 Troponin I NT-Pro-B Natriuret Pep Total Protein 7.1 Albumin 3.5 Globulin 3.6 Albumin/Globulin Ratio 1.0 L 25-OH Vitamin D Total Procalcitonin 0.06 L PTH Intact Whole [place] Venous Blood Potassium Urine Color Urine Appearance Urine pH Ur Specific [place] Urine Protein Urine Glucose (UA) Urine Ketones Urine Blood Urine Nitrate Urine Bilirubin Urine Urobilinogen Ur Leukocyte Esterase Urine RBC Urine WBC Ur Epithelial Cells Ur L.pneumophila Ag Blood Type Antibody Screen Crossmatch BBK History Checked 03/22/19 03/22/19 03/22/19 11:27 15:45 21:00 WBC RBC Hgb Hct MCV MCH MCHC RDW Plt Count MPV Neut % (Auto) Lymph % (Auto) [place] % (Auto) Eos % (Auto) Baso % (Auto) Lymph # (Auto) [place] # (Auto) Eos # (Auto) Baso # (Auto) Absolute Neuts (auto) PT INR APTT pO2 VBG pH VBG pCO2 VBG HCO3 VBG Total CO2 VBG O2 Sat (Calc) VBG Base Excess VBG Potassium Glucose Lactate FiO2 Crit Value Called To Crit Value Called By Blood Gas Notified Time Sodium Potassium Chloride Carbon Dioxide Anion Gap BUN Creatinine Est GFR ( Amer) Est GFR (Non-Af Amer) POC Glucose (mg/dL) 269 H 169 H 131 H Random Glucose Calcium Phosphorus Magnesium Total Bilirubin AST ALT Alkaline Phosphatase Troponin I NT-Pro-B Natriuret Pep Total Protein Albumin Globulin Albumin/Globulin Ratio 25-OH Vitamin D Total Procalcitonin PTH Intact Whole [place] Venous Blood Potassium Urine Color Urine Appearance Urine pH Ur Specific [place] Urine Protein Urine Glucose (UA) Urine Ketones Urine Blood Urine Nitrate Urine Bilirubin Urine Urobilinogen Ur Leukocyte Esterase Urine RBC Urine WBC Ur Epithelial Cells Ur L.pneumophila Ag Blood Type Antibody Screen Crossmatch BBK History Checked 03/23/19 03/23/19 03/23/19 07:18 09:00 09:00 WBC 13.9 H RBC 3.85 Hgb 11.0 L Hct 34.4 L MCV 89.4 MCH 28.6 MCHC 32.0 RDW 17.0 H Plt Count 442 MPV 10.7 Neut % (Auto) Lymph % (Auto) [place] % (Auto) Eos % (Auto) Baso % (Auto) Lymph # (Auto) [place] # (Auto) Eos # (Auto) Baso # (Auto) Absolute Neuts (auto) PT INR APTT pO2 VBG pH VBG pCO2 VBG HCO3 VBG Total CO2 VBG O2 Sat (Calc) VBG Base Excess VBG Potassium Glucose Lactate FiO2 Crit Value Called To Crit Value Called By Blood Gas Notified Time Sodium 145 Potassium 4.8 Chloride 113 H Carbon Dioxide 24 Anion Gap 13 BUN 45 H Creatinine 2.1 H Est GFR ( Amer) 28 Est GFR (Non-Af Amer) 23 POC Glucose (mg/dL) 102 Random Glucose 121 H Calcium 9.6 Phosphorus Magnesium Total Bilirubin 0.3 AST 21 ALT < 6 L Alkaline Phosphatase 68 Troponin I NT-Pro-B Natriuret Pep Total Protein 7.6 Albumin 3.6 Globulin 4.0 Albumin/Globulin Ratio 0.9 L 25-OH Vitamin D Total Procalcitonin PTH Intact Whole [place] Venous Blood Potassium Urine Color Urine Appearance Urine pH Ur Specific [place] Urine Protein Urine Glucose (UA) Urine Ketones Urine Blood Urine Nitrate Urine Bilirubin Urine Urobilinogen Ur Leukocyte Esterase Urine RBC Urine WBC Ur Epithelial Cells Ur L.pneumophila Ag Blood Type Antibody Screen Crossmatch BBK History Checked 03/23/19 03/23/19 03/23/19 09:00 11:25 15:00 WBC RBC Hgb Hct MCV MCH MCHC RDW Plt Count MPV Neut % (Auto) Lymph % (Auto) [place] % (Auto) Eos % (Auto) Baso % (Auto) Lymph # (Auto) [place] # (Auto) Eos # (Auto) Baso # (Auto) Absolute Neuts (auto) PT INR APTT pO2 VBG pH VBG pCO2 VBG HCO3 VBG Total CO2 VBG O2 Sat (Calc) VBG Base Excess VBG Potassium Glucose Lactate FiO2 Crit Value Called To Crit Value Called By Blood Gas Notified Time Sodium Potassium Chloride Carbon Dioxide Anion Gap BUN Creatinine Est GFR ( Amer) Est GFR (Non-Af Amer) POC Glucose (mg/dL) 124 H Random Glucose Calcium Phosphorus Magnesium Total Bilirubin AST ALT Alkaline Phosphatase Troponin I NT-Pro-B Natriuret Pep Total Protein Albumin Globulin Albumin/Globulin Ratio 25-OH Vitamin D Total Procalcitonin 0.06 L PTH Intact Whole Molec 70 H Venous Blood Potassium Urine Color Urine Appearance Urine pH Ur Specific [place] Urine Protein Urine Glucose (UA) Urine Ketones Urine Blood Urine Nitrate Urine Bilirubin Urine Urobilinogen Ur Leukocyte Esterase Urine RBC Urine WBC Ur Epithelial Cells Ur L.pneumophila Ag Blood Type Antibody Screen Crossmatch BBK History Checked 03/23/19 03/23/19 03/23/19 15:36 16:55 16:55 WBC RBC Hgb Hct MCV MCH MCHC RDW Plt Count MPV Neut % (Auto) Lymph % (Auto) [place] % (Auto) Eos % (Auto) Baso % (Auto) Lymph # (Auto) [place] # (Auto) Eos # (Auto) Baso # (Auto) Absolute Neuts (auto) PT INR APTT pO2 VBG pH VBG pCO2 VBG HCO3 VBG Total CO2 VBG O2 Sat (Calc) VBG Base Excess VBG Potassium Glucose Lactate FiO2 Crit Value Called To Crit Value Called By Blood Gas Notified Time Sodium Potassium Chloride Carbon Dioxide Anion Gap BUN Creatinine Est GFR ( Amer) Est GFR (Non-Af Amer) POC Glucose (mg/dL) 129 H Random Glucose Calcium Phosphorus Magnesium Total Bilirubin AST ALT Alkaline Phosphatase Troponin I NT-Pro-B Natriuret Pep Total Protein Albumin Globulin Albumin/Globulin Ratio 25-OH Vitamin D Total Procalcitonin PTH Intact Whole [place] Venous Blood Potassium Urine Color Yellow Urine Appearance Clear Urine pH 6.0 Ur Specific [place] 1.015 Urine Protein 100 H Urine Glucose (UA) Negative Urine Ketones Negative Urine Blood Negative Urine Nitrate Negative Urine Bilirubin Negative Urine Urobilinogen 0.2 Ur Leukocyte Esterase Negative Urine RBC None Urine WBC 0 - 2 Ur Epithelial Cells 1 - 3 Ur L.pneumophila Ag Negative Blood Type Antibody Screen Crossmatch BBK History Checked 03/23/19 03/24/19 03/24/19 21:04 07:30 08:40 WBC 10.8 D RBC 3.76 Hgb 10.5 L Hct 33.5 L MCV 89.1 MCH 27.9 MCHC 31.3 RDW 16.4 H Plt Count 439 MPV 10.3 Neut % (Auto) Lymph % (Auto) [place] % (Auto) Eos % (Auto) Baso % (Auto) Lymph # (Auto) [place] # (Auto) Eos # (Auto) Baso # (Auto) Absolute Neuts (auto) PT INR APTT pO2 VBG pH VBG pCO2 VBG HCO3 VBG Total CO2 VBG O2 Sat (Calc) VBG Base Excess VBG Potassium Glucose Lactate FiO2 Crit Value Called To Crit Value Called By Blood Gas Notified Time Sodium Potassium Chloride Carbon Dioxide Anion Gap BUN Creatinine Est GFR ( Amer) Est GFR (Non-Af Amer) POC Glucose (mg/dL) 125 H 106 Random Glucose Calcium Phosphorus Magnesium Total Bilirubin AST ALT Alkaline Phosphatase Troponin I NT-Pro-B Natriuret Pep Total Protein Albumin Globulin Albumin/Globulin Ratio 25-OH Vitamin D Total Procalcitonin PTH Intact Whole [place] Venous Blood Potassium Urine Color Urine Appearance Urine pH Ur Specific [place] Urine Protein Urine Glucose (UA) Urine Ketones Urine Blood Urine Nitrate Urine Bilirubin Urine Urobilinogen Ur Leukocyte Esterase Urine RBC Urine WBC Ur Epithelial Cells Ur L.pneumophila Ag Blood Type Antibody Screen Crossmatch BBK History Checked 03/24/19 03/24/19 03/24/19 08:40 08:40 11:33 WBC RBC Hgb Hct MCV MCH MCHC RDW Plt Count MPV Neut % (Auto) Lymph % (Auto) [place] % (Auto) Eos % (Auto) Baso % (Auto) Lymph # (Auto) [place] # (Auto) Eos # (Auto) Baso # (Auto) Absolute Neuts (auto) PT INR APTT pO2 VBG pH VBG pCO2 VBG HCO3 VBG Total CO2 VBG O2 Sat (Calc) VBG Base Excess VBG Potassium Glucose Lactate FiO2 Crit Value Called To Crit Value Called By Blood Gas Notified Time Sodium 143 Potassium 4.5 Chloride 112 H Carbon Dioxide 24 Anion Gap 11 BUN 36 H Creatinine 1.9 H Est GFR ( Amer) 32 Est GFR (Non-Af Amer) 26 POC Glucose (mg/dL) 155 H Random Glucose 108 Calcium 9.6 Phosphorus 3.3 Magnesium 1.8 Total Bilirubin 0.2 AST 23 ALT 12 Alkaline Phosphatase 75 Troponin I NT-Pro-B Natriuret Pep Total Protein 7.3 Albumin 3.6 Globulin 3.8 Albumin/Globulin Ratio 0.9 L 25-OH Vitamin D Total 30.8 Procalcitonin PTH Intact Whole [place] Venous Blood Potassium Urine Color Urine Appearance Urine pH Ur Specific [place] Urine Protein Urine Glucose (UA) Urine Ketones Urine Blood Urine Nitrate Urine Bilirubin Urine Urobilinogen Ur Leukocyte Esterase Urine RBC Urine WBC Ur Epithelial Cells Ur L.pneumophila Ag Blood Type Antibody Screen Crossmatch BBK History Checked 03/24/19 15:33 WBC RBC Hgb Hct MCV MCH MCHC RDW Plt Count MPV Neut % (Auto) Lymph % (Auto) [place] % (Auto) Eos % (Auto) Baso % (Auto) Lymph # (Auto) [place] # (Auto) Eos # (Auto) Baso # (Auto) Absolute Neuts (auto) PT INR APTT pO2 VBG pH VBG pCO2 VBG HCO3 VBG Total CO2 VBG O2 Sat (Calc) VBG Base Excess VBG Potassium Glucose Lactate FiO2 Crit Value Called To Crit Value Called By Blood Gas Notified Time Sodium Potassium Chloride Carbon Dioxide Anion Gap BUN Creatinine Est GFR ( Amer) Est GFR (Non-Af Amer) POC Glucose (mg/dL) 136 H Random Glucose Calcium Phosphorus Magnesium Total Bilirubin AST ALT Alkaline Phosphatase Troponin I NT-Pro-B Natriuret Pep Total Protein Albumin Globulin Albumin/Globulin Ratio 25-OH Vitamin D Total Procalcitonin PTH Intact Whole [place] Venous Blood Potassium Urine Color Urine Appearance Urine pH Ur Specific [place] Urine Protein Urine Glucose (UA) Urine Ketones Urine Blood Urine Nitrate Urine Bilirubin Urine Urobilinogen Ur Leukocyte Esterase Urine RBC Urine WBC Ur Epithelial Cells Ur L.pneumophila Ag Blood Type Antibody Screen Crossmatch BBK History Checked Assessment: 68-year-old female with past medical history of congestive heart failure, COPD, CVA, left eye blindness, diabetes type 2, incontinence presents from [facility] for fever,101 cough, and congestion. Patient states that her symptoms started 2 weeks ago and she has been getting progressively worse, cxr ED revealed RLL infiltrates, admitted for further eval and treatment, with I.D. consulted. Plan: 1. RLL Pneumonia- Antibiotics as per I.D. may switch to PO Doxy upon DC, check repeat cxr am per pulm. 2. Anemia- Improved post transfusion of 2 units prbcs. GI consulted, no further work up recommended, pt. will f/u with GI at [facility]. 3. Renal Insuffiency improving, further recs per nephrology- 24 hr urine collection pending. 4. Uncontrolled htn with hx Renal mass, CRI, Antihypertensives per nephrology. will cont. to monitor BP. Pt. rec Home with services.
[2019-03-24] MEDS ORDERED: diltiaZEM 180 mg/24 Hours CD Cap PO STA (17:13)
[2019-03-24 18:17] LABS: URINE CREATININE 54.7 mg/dL
[2019-03-24 18:24] LABS: URINE 24 HOUR TOTAL PROTEIN 3760 mg/24HR (42-225); URINE TOTAL VOLUME 1000 mL (800-1400)
--- NOTE | 2019-03-24 22:29 | CP.PCM.PCO ---
<Franklin Rea - Last Filed: 03/24/19 22:27> Addendum Addendum: PGY1 House Doc Note Paged about chest pain. Patient was examined. Her chest pain is left sided with no radiation to arm/jaw/back. It is worse with coughing. Vital signs are stable at this time. She is here for PNA and assembly instructions writer believes that this is likely secondary to her PNA. However, stat EKG and troponin level ordered. EKG was reviewed, no acute ST or T wave changes noted. Will follow up trop and monitor closely. <Romeo Linda - Last Filed: 03/27/19 19:36> Attending/Attestation - Attestation I have personally seen and examined this patient.: Yes I have fully participated in the care of the patient.: Yes I have reviewed all pertinent clinical information: Yes
--- NOTE | 2019-03-24 22:37 | CP.PCM.PN ---
Subjective - Date & Time of Evaluation Date of Evaluation: 03/24/19 Time of Evaluation: 22:36 - Subjective Subjective: Patient was seen because I was asked to cosign the order for EKG by the back office medical assistant. There were ordered because patient had left-sided chest pain. Pain was subsided without any intervention. When I saw the patient she did not have pain anymore. Medical record was reviewed. This 68-year-old woman was admitted to the emergency room for fever of 101.2 Fahrenheit, [facility]. Patient has past medical history of COPD, congestive heart failure, CVA, TIA, left eye redness, type 2 diabetes mellitus, right kidney mass, hematuria, in continence, anxiety, cardiac catheterization with 2 stents, hysterectomy, allergy to shellfish. Objective - Vital Signs/Intake and Output Vital Signs (last 24 hours): Temp Pulse Resp BP Pulse Ox 98.2 F 83 20 206/84 H 98 03/24/19 16:19 03/24/19 22:30 03/24/19 16:19 03/24/19 18:31 03/24/19 16:19 Intake and Output: 03/24/19 03/25/19 18:59 06:59 Intake Total 360 Balance 360 - Medications Medications: Current Medications Acetaminophen (Tylenol 325mg Tab) 650 mg PO Q6 PRN PRN Reason: Fever >100.4 F Last Admin: 03/23/19 09:19 Dose: 650 mg Allopurinol (Zyloprim) 100 mg PO DAILY [facility] Last Admin: 03/24/19 10:40 Dose: 100 mg Aspirin (Ecotrin) 81 mg PO DAILY [facility] Last Admin: 03/24/19 10:30 Dose: 81 mg Atorvastatin Calcium (Lipitor) 80 mg PO DIN [facility] Last Admin: 03/24/19 17:28 Dose: 80 mg Carvedilol (Coreg) 25 mg PO BID [facility] Last Admin: 03/24/19 18:31 Dose: 25 mg Clonidine HCl (Catapres) 0.1 mg PO Q4H PRN PRN Reason: hypertension Last Admin: 03/24/19 12:04 Dose: 0.1 mg Clonidine HCl (Catapres) 0.1 mg PO TID [facility] Diltiazem HCl (Cardizem Cd) 180 mg PO DAILY [facility] Divalproex Sodium (Depakote Sprinkles) 125 mg PO Q8 [facility]; Protocol Last Admin: 03/24/19 22:32 Dose: Not Given Docusate Sodium (Colace) 200 mg PO DAILY PRN PRN Reason: Constipation Doxycycline Hyclate (Doryx) 100 mg PO Q12 [facility]; Protocol Stop: 03/28/19 22:01 Last Admin: 03/24/19 22:31 Dose: 100 mg Ferrous Sulfate (Feosol Liq) 300 mg PO DAILY [facility] Last Admin: 03/24/19 11:41 Dose: Not Given Folic Acid (Folic Acid) 1 mg PO DAILY [facility] Last Admin: 03/24/19 10:31 Dose: 1 mg Furosemide (Lasix) 40 mg IVP DAILY [facility] Last Admin: 03/24/19 10:30 Dose: 40 mg Heparin Sodium (Porcine) (Heparin) 5,000 units SC Q8 [facility]; Protocol Last Admin: 03/24/19 22:30 Dose: 5,000 units Hydralazine HCl (Apresoline) 100 mg PO QID [facility] Last Admin: 03/24/19 22:30 Dose: 100 mg Cefepime HCl (Maxipime 1gm) 1 gm in 100 mls @ 100 mls/hr IVPB Q12 [facility]; Protocol Stop: 03/29/19 10:01 Last Admin: 03/24/19 22:25 Dose: 100 mls/hr Insulin Human Regular (Humulin R Med) 0 units SC ACHS [facility]; Protocol Last Admin: 03/24/19 15:52 Dose: Not Given Isosorbide Mononitrate (Ismo) 20 mg PO Q8 [facility] Last Admin: 03/24/19 22:31 Dose: 20 mg Lactobacillus Acidophilus (Bacid Acidophilus) 1 cap PO Q12 [facility] Last Admin: 03/24/19 22:31 Dose: 1 cap Lidocaine (Lidoderm) 1 ea TD DAILY [facility] Last Admin: 03/24/19 10:31 Dose: 1 ea Losartan Potassium (Cozaar) 100 mg PO DAILY [facility] Last Admin: 03/23/19 09:24 Dose: 100 mg Multivitamins (Thera Tab) 1 tab PO 0800 [facility] Last Admin: 03/24/19 08:31 Dose: 1 tab Ondansetron HCl (Zofran Tab) 4 mg PO Q6H PRN PRN Reason: Nausea/Vomiting Oxycodone/Acetaminophen (Percocet 5/325 Mg Tab) 1 tab PO Q6H PRN PRN Reason: Pain, moderate (4-7) Stop: 03/26/19 11:28 Last Admin: 03/24/19 09:04 Dose: 1 tab Pantoprazole Sodium (Protonix Ec Tab) 40 mg PO 0600 [facility] Last Admin: 03/24/19 05:36 Dose: 40 mg Promethazine HCl/Dextromethorphan (Phenergan Dm Syrup) 5 ml PO Q8 PRN PRN Reason: Cough Last Admin: 03/24/19 10:30 Dose: 5 ml - Labs Labs: 03/24/19 08:40 03/24/19 17:34 PT 12.6 SECONDS (9.4-12.5) H 03/21/19 12:00 INR 1.12 03/21/19 12:00 APTT 31.9 Seconds (26.9-38.3) 03/21/19 12:00 - Constitutional Appears: Well, No Acute Distress - Head Exam Head Exam: ATRAUMATIC, NORMAL INSPECTION, NORMOCEPHALIC - Eye Exam Eye Exam: Normal appearance - ENT Exam ENT Exam: Normal External Ear Exam - Neck Exam Neck Exam: Normal Inspection - Respiratory Exam Respiratory Exam: NORMAL BREATHING PATTERN - Cardiovascular Exam Cardiovascular Exam: absent: JVD - GI/Abdominal Exam GI & Abdominal Exam: absent: Distended - Rectal Exam Rectal Exam: Deferred - Extremities Exam Extremities Exam: Normal Inspection - Back Exam Back Exam: NORMAL INSPECTION - Neurological Exam Neurological Exam: Alert - Psychiatric Exam Psychiatric exam: Normal Affect, Normal Mood - Skin Skin Exam: Normal Color Assessment and Plan - Assessment and Plan (Free Text) Assessment: Chest pain. COPD Congestive heart failure CVA Left eye blindness Type 2 diabetes mellitus Right kidney mass MetroGel Incontinence Anxiety CAD Allergy to shellfish. Plan: Stat EKG was orderedno acute changes, normal sinus rhythm. Troponin stat. Continue present management.
--- NOTE | 2019-03-25 02:24 | PN ---
DATE: 03/24/2019 SUBJECTIVE: The patient is seen, lying in bed. She is awake, she is alert. She denies any pain. She denies any shortness of breath. She denies any chest tightness. She denies any headaches. PHYSICAL EXAMINATION: GENERAL: Elderly lady, lying in bed. VITAL SIGNS: Blood pressure 190/84, heart rate 92, respiratory rate 20, temperature 98.2. HEENT: Normocephalic, atraumatic. Positive pallor. NECK: Supple, no JVD. LUNGS: Bilateral equal air entry. Bilateral equal expansion. CARDIAC: S1, S2. Regular rate and rhythm. No murmur, no rub. ABDOMEN: Obese, distended, soft, positive PEG. Bowel sounds present. EXTREMITIES: 2+ edema of the lower extremities. INTAKE AND OUTPUT: 1220/1400. LABORATORY DATA: WBC 10.8, hemoglobin 10.5, hematocrit 33.5, platelets 439. Sodium 143, potassium 4.5, chloride 112, CO2 of 24, BUN 36, creatinine 1.9, glucose 108, calcium 9.6, phosphorus 3.3, magnesium 1.8, albumin 3.6. Vitamin D 30.8, PTH 70. Urinalysis, yellow, clear, pH 6, specific gravity 1.015, protein 100, glucose negative, ketones negative, blood negative. Urine volume 1000, creatinine clearance 19. Urine protein 37. Urine culture, gram-positive cocci. Blood culture, no growth. CURRENT MEDICATIONS: Hydralazine 100 q.i.d., amlodipine 5, clonidine 0.1 b.i.d., Colace 200, Coreg 25 b.i.d., Cozaar 100, Depakote 125 every 8 hours, doxycycline 100 every 12 hours, Ecotrin 81, insulin, Imdur, Lasix 40 IV daily, Lipitor 80, cefepime 1 g every 12 hours, Protonix, multivitamin, Tylenol, Zofran, allopurinol. ASSESSMENT AND PLAN: 1. Severe uncontrolled hypertension. 2. Acute kidney injury superimposed on chronic kidney disease, stage IV. 3. Nephrotic range proteinuria. 4. Non-insulin dependent diabetes mellitus. 5. Hypertension. 6. Recent renal cell carcinoma, status post right nephrectomy. 7. Recent cerebrovascular accident with left hemiparesis. 8. Anemia of chronic kidney disease plus acute anemia, status post 2 units of blood transfusion. 9. No evidence of secondary hyperparathyroidism nor hyperphosphatemia. PLAN: 1. Discontinue amlodipine and start Cardizem CD 180 mg daily since the patient is a little tachycardic. 2. Continue hydralazine 3. Change clonidine to 0.1 three times a day. 4. Check hemoglobin A1c. 5. Monitor blood glucose and continue insulin coverage. 6. Avoid nephrotoxins. 7. Okay to restart Losartan since renal parameters are now at baseline. Lou Moy MD
[2019-03-25] MEDS: Pantoprazole 40 mg EC Tab PO SCH (06:55)
[2019-03-25] MEDS: Insulin Reg-MEDIUM-Coverage SC SCH ×4 (06:58→22:25)
[2019-03-25] MEDS: Divalproex 125 mg EC Sprinkle Cap PO SCH ×3 (06:58→21:19)
--- NOTE | 2019-03-25 07:56 | PN ---
DATE: 03/25/2019 SUBJECTIVE: The patient appears very comfortable this morning. She is not short of breath at rest. PHYSICAL EXAMINATION: VITAL SIGNS: Temperature is 98.2, pulse 83, respirations 18, last blood pressure recorded in chart - 206/84. Oxygen saturation on room air - 98%. HEENT: Normocephalic, atraumatic. No JVD. CARDIOVASCULAR: Positive S1, S2. No S3 gallop. LUNGS: Less crackles - right base. No rhonchi. No wheezing. EXTREMITIES: Mild edema, no cyanosis, no clubbing. Calves are nontender to palpation. GASTROINTESTINAL: Abdomen is soft, nontender, nondistended. Bowel sounds are positive. There is a feeding tube in place. SKIN: No acute rash. NEUROLOGIC: Exam limited at the present time. IMPRESSION: 1. Right lower lobe pneumonia. 2. Anemia. 3. Renal insufficiency. 4. Diabetes mellitus. PLAN: The patient appears quite comfortable this morning. She is not short of breath at rest. She does state to feeling better overall. I did discuss the case with the night nurse at length. The night nurse stated that the patient had an uneventful night. On physical exam, there is no bronchospasm noted. In addition, the oxygen saturation on room air is now 98%. I will continue with the aspiration precautions for now. The patient remains on antibiotic therapy - as per Infectious Disease. Input by Dr. Luna is noted. The temperatures have fully resolved. The leukocytosis has also fully resolved. I have also ordered a followup chest x-ray for today, and will check that when feasible. Clinical status of the patient is significantly improved - compared to the initial presentation. I will discuss the above with Dr. Odell this morning. Noe Velásquez MD [facility]
--- NOTE | 2019-03-25 08:13 | CP.PCM.PN ---
<Brian Veliz - Last Filed: 03/25/19 13:59> Subjective - Date & Time of Evaluation Date of Evaluation: 03/25/19 Time of Evaluation: 10:05 - Subjective Subjective: Infectious dx progress note: Pt seen and examined at bedside. No acute events overnight. Denies any abd or urinary complaints. No other complaints at this time. No fevers 12 Point ROS performed and neg other than stated above Objective - Vital Signs/Intake and Output Vital Signs (last 24 hours): Temp Pulse Resp BP Pulse Ox 98.2 F 83 20 206/84 H 98 03/24/19 16:19 03/24/19 22:30 03/24/19 16:19 03/24/19 18:31 03/24/19 16:19 Intake and Output: 03/25/19 03/25/19 06:59 18:59 Intake Total 360 Balance 360 - Medications Medications: Current Medications Acetaminophen (Tylenol 325mg Tab) 650 mg PO Q6 PRN PRN Reason: Fever >100.4 F Last Admin: 03/23/19 09:19 Dose: 650 mg Allopurinol (Zyloprim) 100 mg PO DAILY [facility] Last Admin: 03/24/19 10:40 Dose: 100 mg Aspirin (Ecotrin) 81 mg PO DAILY [facility] Last Admin: 03/24/19 10:30 Dose: 81 mg Atorvastatin Calcium (Lipitor) 80 mg PO DIN [facility] Last Admin: 03/24/19 17:28 Dose: 80 mg Carvedilol (Coreg) 25 mg PO BID [facility] Last Admin: 03/24/19 18:31 Dose: 25 mg Clonidine HCl (Catapres) 0.1 mg PO Q4H PRN PRN Reason: hypertension Last Admin: 03/24/19 12:04 Dose: 0.1 mg Clonidine HCl (Catapres) 0.1 mg PO TID [facility] Diltiazem HCl (Cardizem Cd) 180 mg PO DAILY [facility] Divalproex Sodium (Depakote Sprinkles) 125 mg PO Q8 [facility]; Protocol Last Admin: 03/25/19 06:58 Dose: Not Given Docusate Sodium (Colace) 200 mg PO DAILY PRN PRN Reason: Constipation Doxycycline Hyclate (Doryx) 100 mg PO Q12 [facility]; Protocol Stop: 03/28/19 22:01 Last Admin: 03/24/19 22:31 Dose: 100 mg Ferrous Sulfate (Feosol Liq) 300 mg PO DAILY [facility] Last Admin: 03/24/19 11:41 Dose: Not Given Folic Acid (Folic Acid) 1 mg PO DAILY [facility] Last Admin: 03/24/19 10:31 Dose: 1 mg Furosemide (Lasix) 40 mg IVP DAILY [facility] Last Admin: 03/24/19 10:30 Dose: 40 mg Heparin Sodium (Porcine) (Heparin) 5,000 units SC Q8 [facility]; Protocol Last Admin: 03/25/19 06:55 Dose: Not Given Hydralazine HCl (Apresoline) 100 mg PO QID [facility] Last Admin: 03/24/19 22:30 Dose: 100 mg Cefepime HCl (Maxipime 1gm) 1 gm in 100 mls @ 100 mls/hr IVPB Q12 [facility]; Protocol Stop: 03/29/19 10:01 Last Admin: 03/24/19 22:25 Dose: 100 mls/hr Insulin Human Regular (Humulin R Med) 0 units SC ACHS [facility]; Protocol Last Admin: 03/25/19 06:58 Dose: Not Given Isosorbide Mononitrate (Ismo) 20 mg PO Q8 [facility] Last Admin: 03/25/19 06:51 Dose: 20 mg Lactobacillus Acidophilus (Bacid Acidophilus) 1 cap PO Q12 [facility] Last Admin: 03/24/19 22:31 Dose: 1 cap Lidocaine (Lidoderm) 1 ea TD DAILY [facility] Last Admin: 03/24/19 10:31 Dose: 1 ea Losartan Potassium (Cozaar) 100 mg PO DAILY [facility] Last Admin: 03/23/19 09:24 Dose: 100 mg Multivitamins (Thera Tab) 1 tab PO 0800 [facility] Last Admin: 03/24/19 08:31 Dose: 1 tab Ondansetron HCl (Zofran Tab) 4 mg PO Q6H PRN PRN Reason: Nausea/Vomiting Oxycodone/Acetaminophen (Percocet 5/325 Mg Tab) 1 tab PO Q6H PRN PRN Reason: Pain, moderate (4-7) Stop: 03/26/19 11:28 Last Admin: 03/24/19 09:04 Dose: 1 tab Pantoprazole Sodium (Protonix Ec Tab) 40 mg PO 0600 [facility] Last Admin: 03/25/19 06:55 Dose: 40 mg Promethazine HCl/Dextromethorphan (Phenergan Dm Syrup) 5 ml PO Q8 PRN PRN Reason: Cough Last Admin: 03/24/19 10:30 Dose: 5 ml - Labs Labs: 03/24/19 08:40 03/24/19 17:34 PT 12.6 SECONDS (9.4-12.5) H 03/21/19 12:00 INR 1.12 03/21/19 12:00 APTT 31.9 Seconds (26.9-38.3) 03/21/19 12:00 - Constitutional Appears: No Acute Distress - Respiratory Exam Respiratory Exam: Clear to Ausculation Bilateral. absent: Rales, Wheezes - Cardiovascular Exam Cardiovascular Exam: REGULAR RHYTHM, +S1, +S2 - GI/Abdominal Exam GI & Abdominal Exam: Soft. absent: Distended, Tenderness - Extremities Exam Extremities Exam: absent: Calf Tenderness, Pedal Edema - Neurological Exam Neurological Exam: Alert, Awake - Psychiatric Exam Psychiatric exam: Normal Mood - Skin Skin Exam: Dry, Warm Assessment and Plan - Assessment and Plan (Free Text) Assessment: Severe sepsis secondary to right lower lobe HCAP Asymptomatic bacteriurea Acute on chronic kidney disease Hyperkalemia Anemia S/P 2 units PRBC History of heart failure COPD CVA Diabetic type II Left eye blindness Obesity HTN Asymptomatic bacteriurea - Urine cx - VRE likely a colonization Continue cefepime day 4 and doxycycline day 4, upon d/c she can go with PO doxy 100mg BID for 5 days Follow-up septic work-up - neg thus far Procalcitonin neg Continue to monitor for any changes Case and plan to be reviewed and discussed with Dr. Luna <Garcia Luna - Last Filed: 03/25/19 22:04> Objective - Vital Signs/Intake and Output Vital Signs (last 24 hours): Temp Pulse Resp BP Pulse Ox 98.4 F 89 20 189/91 H 95 03/25/19 17:05 03/25/19 17:12 03/25/19 17:05 03/25/19 21:10 03/25/19 17:05 - Medications Medications: Current Medications Acetaminophen (Tylenol 325mg Tab) 650 mg PO Q6 PRN PRN Reason: Fever >100.4 F Last Admin: 03/23/19 09:19 Dose: 650 mg Allopurinol (Zyloprim) 100 mg PO DAILY [facility] Last Admin: 03/25/19 10:11 Dose: 100 mg Aspirin (Ecotrin) 81 mg PO DAILY [facility] Last Admin: 03/25/19 10:07 Dose: 81 mg Atorvastatin Calcium (Lipitor) 80 mg PO DIN [facility] Last Admin: 03/25/19 17:13 Dose: 80 mg Carvedilol (Coreg) 25 mg PO BID [facility] Last Admin: 03/25/19 17:12 Dose: 25 mg Clonidine HCl (Catapres) 0.1 mg PO Q4H PRN PRN Reason: hypertension Last Admin: 03/24/19 12:04 Dose: 0.1 mg Clonidine HCl (Catapres) 0.1 mg PO TID [facility] Last Admin: 03/25/19 17:11 Dose: 0.1 mg Diltiazem HCl (Cardizem Cd) 360 mg PO DAILY [facility] Divalproex Sodium (Depakote Sprinkles) 125 mg PO Q8 [facility]; Protocol Last Admin: 03/25/19 21:19 Dose: Not Given Docusate Sodium (Colace) 200 mg PO DAILY PRN PRN Reason: Constipation Doxycycline Hyclate (Doryx) 100 mg PO Q12 [facility]; Protocol Stop: 03/28/19 22:01 Last Admin: 03/25/19 21:18 Dose: 100 mg Ferrous Sulfate (Feosol Liq) 300 mg PO DAILY [facility] Last Admin: 03/25/19 10:07 Dose: 300 mg Folic Acid (Folic Acid) 1 mg PO DAILY [facility] Last Admin: 03/25/19 10:08 Dose: 1 mg Furosemide (Lasix) 40 mg IVP DAILY [facility] Last Admin: 03/25/19 10:09 Dose: 40 mg Heparin Sodium (Porcine) (Heparin) 5,000 units SC Q8 [facility]; Protocol Last Admin: 03/25/19 21:09 Dose: Not Given Hydralazine HCl (Apresoline) 100 mg PO QID [facility] Last Admin: 03/25/19 21:10 Dose: 100 mg Cefepime HCl (Maxipime 1gm) 1 gm in 100 mls @ 100 mls/hr IVPB Q12 [facility]; Protocol Stop: 03/29/19 10:01 Last Admin: 03/25/19 21:18 Dose: 100 mls/hr Insulin Human Regular (Humulin R Med) 0 units SC ACHS [facility]; Protocol Last Admin: 03/25/19 17:12 Dose: Not Given Isosorbide Mononitrate (Ismo) 20 mg PO Q8 [facility] Last Admin: 03/25/19 21:18 Dose: 20 mg Lactobacillus Acidophilus (Bacid Acidophilus) 1 cap PO Q12 [facility] Last Admin: 03/25/19 21:18 Dose: 1 cap Lidocaine (Lidoderm) 1 ea TD DAILY [facility] Last Admin: 03/25/19 10:10 Dose: 1 ea Losartan Potassium (Cozaar) 100 mg PO DAILY [facility] Last Admin: 03/25/19 14:13 Dose: 100 mg Multivitamins (Thera Tab) 1 tab PO 0800 [facility] Last Admin: 03/25/19 10:10 Dose: 1 tab Ondansetron HCl (Zofran Tab) 4 mg PO Q6H PRN PRN Reason: Nausea/Vomiting Oxycodone/Acetaminophen (Percocet 5/325 Mg Tab) 1 tab PO Q6H PRN PRN Reason: Pain, moderate (4-7) Stop: 03/26/19 11:28 Last Admin: 03/24/19 09:04 Dose: 1 tab Pantoprazole Sodium (Protonix Ec Tab) 40 mg PO 0600 [facility] Last Admin: 03/25/19 06:55 Dose: 40 mg Promethazine HCl/Dextromethorphan (Phenergan Dm Syrup) 5 ml PO Q8 PRN PRN Reason: Cough Last Admin: 03/24/19 10:30 Dose: 5 ml - Labs Labs: 03/25/19 08:00 03/25/19 08:00 PT 12.6 SECONDS (9.4-12.5) H 03/21/19 12:00 INR 1.12 03/21/19 12:00 APTT 31.9 Seconds (26.9-38.3) 03/21/19 12:00 Attending/Attestation - Attestation I have personally seen and examined this patient.: Yes I have fully participated in the care of the patient.: Yes I have reviewed all pertinent clinical information, including history, physical exam and plan: Yes
[2019-03-25 08:14] LABS: MEAN CELL VOLUME 89.1 fl (80.0-105.0); MEAN CORPUSCULAR HEMOGLOBIN 27.2 pg (25.0-35.0); MEAN CORPUSCULAR HGB CONC 30.5 g/dl (31.0-37.0); MEAN PLATELET VOLUME 10.1 fl (7.0-11.0); RBC 3.68 10^6/uL (3.5-6.1); RED CELL DISTRIBUTION WIDTH 16.1 % (11.5-14.5); WHITE BLOOD COUNT 7.9 10^3/uL (4.5-11.0)
[2019-03-25 08:24] LABS: ALB/GLOB RATIO 0.9 (1.1-1.8); ALBUMIN 3.2 g/dL (3.0-4.8); CALCIUM 9.4 mg/dL (8.4-10.5)
--- NOTE | 2019-03-25 09:53 | PN ---
DATE: 03/25/2019 SUBJECTIVE: She is seen in bed. She is breathing bit better with the antibiotics for the pneumonia. Her blood pressure is still jasen high. She is being seen by Renal, and Infectious Disease who has her on doxycycline and cefepime. She is eating some. MEDICATIONS: On multiple blood pressure medications Apresoline, Cardizem, Catapres, Coreg, Cozaar, Lasix IV. I have called in Cardiology to help us with the elevated blood pressure. PHYSICAL EXAMINATION: VITAL SIGNS: She has a 98.2 temperature, 83 pulse, 206/84 blood pressure. HEENT: Head is atraumatic, normocephalic. HEART: Regular rate. LUNGS: Decreased breath sounds. ABDOMEN: Soft. She has a feeding tube. EXTREMITIES: No edema. LABORATORY DATA: She has a 142 sodium, potassium 4.4, BUN is 35, creatinine 1.9, GFR is 26, sugar is 14, calcium 9.4, total bili is 0.2. AST is 13, ALT is 15, alk phos 60. Troponin I is less than 0.01. Total total protein 6.7. White count 7.9, best it has been; 10 hemoglobin; 32.8 hematocrit with a 420 platelets. ASSESSMENT AND PLAN: She had a Gram-positive cocci in the urine. Continue with IV antibiotics for pneumonia and UTI and blood pressure pills for accelerated blood pressure. Mathieu Odell DO
[2019-03-25] MEDS ORDERED: diltiaZEM 180 mg/24 Hours CD Cap PO SCH (10:00)
[2019-03-25] MEDS: Lactobacillus Acidophilus 500 MU Cap PO SCH ×2 (10:03→21:18)
[2019-03-25] MEDS: Ferrous Sulfate 300 mg/5 mL Liq UD PO SCH (10:07)
[2019-03-25] MEDS: Cefepime 1gm in NS 100ml 1 GM/100 ML BAG IVPB SCH ×2 (10:10→21:18)
[2019-03-25] MEDS: Multivitamin Therapeutic Tab PO SCH (10:10)
[2019-03-25] MEDS: Lidocaine 5% Patch TD SCH (10:10)
--- NOTE | 2019-03-25 11:39 | CP.PCM.PCO ---
Physician Communication Note - Physician Communication Note Physician Communication Note: pt.w.cough,breathing better,no dysuria,denied headache,BP 190/90,ck repeat.
--- NOTE | 2019-03-25 11:49 | IP.NPCORE ---
Pneumonia Progress Notes - Oxygenation Assessment (REQUIRED) Documented 02: Yes O2 Saturation: 97 Oxygen Delivery Method: Nasal Cannula Date: 03/25/19 Documented P02: No - Blood Cultures (REQUIRED) Culture drawn: Yes Date:: 03/21/19 Time:: 12:40 - Initial Antibiotic Initial Antibiotic given within Four Hours:: Yes - Appropriate Antibiotic Appropriate Antibiotic within 24 hours of Admission:: Yes - Pneumonia Vaccine Pneumonia Vaccine: Yes Date:: 01/08/17 - Smoking Cessation Smoking Cessation counseling provided:: No (na)
--- NOTE | 2019-03-25 12:25 | RAD ---
Date of service: 03/25/2019 HISTORY: follow up COMPARISON: 03/21/2019 TECHNIQUE: Chest PA and lateral views FINDINGS: LUNGS: No active pulmonary disease. PLEURA: No significant pleural effusion identified. No pneumothorax apparent. CARDIOVASCULAR: No aortic atherosclerotic calcification present. Normal cardiac size. No pulmonary vascular congestion. OSSEOUS STRUCTURES: No significant abnormalities. VISUALIZED UPPER ABDOMEN: Normal. OTHER FINDINGS: None. IMPRESSION: No active disease.
--- NOTE | 2019-03-25 14:28 | CON ---
DATE OF CONSULTATION: 03/25/2019 CARDIOLOGY CONSULTATION HISTORY: The patient is a 68-year-old woman, who presents from [facility] with a fever. She was found to have persistent elevated blood pressures. PAST MEDICAL HISTORY: The patient's past medical history includes accelerated hypertension on multiple medications, history of CVA, renal insufficiency as well as diabetes mellitus. Her ejection fraction on echo has always been normal. She has also had PTCA and stent in the past. Studies of her renal arteries revealed no renal artery stenosis. SOCIAL HISTORY: The patient denies smoking. REVIEW OF SYSTEMS: All negative for cardiac symptomatology. PHYSICAL EXAMINATION: VITAL SIGNS: Blood pressure 189/91, heart rate is in the 90s. NECK: Negative JVD. LUNGS: Without rales. HEART: Reveals S1, S2. EXTREMITIES: Without edema. LABORATORY DATA: EKG shows LVH. Laboratories reveal a hemoglobin of 10, white count is down to normal. BUN and creatinine are 35 and 1.9. Troponins are negative. IMPRESSION: 1. Accelerated hypertension. 2. Diabetes mellitus. 3. Coronary artery disease. 4. Stable angina. 5. Recent cerebrovascular accident. 6. Sepsis. PLAN: Given these findings, clonidine was started today t.i.d. We will continue clonidine 0.1. We would be careful about the clonidine, as the patient recently has had a tendency to drop her pressure too low and felt very fatigued. Austin Duque MD
--- NOTE | 2019-03-25 18:45 | CARD ---
APPROVED REPORT Date of service: 03/24/2019 EKG Measurement Heart [id number] ID [id number] <Conclusion> Normal sinus rhythm Cannot rule out Anterior infarct, age undetermined Abnormal ECG
--- NOTE | 2019-03-25 22:22 | PN ---
DATE: 03/25/2019 SUBJECTIVE: The patient is seen lying in bed. She is awake. She is alert. She complains of some headache. PHYSICAL EXAMINATION GENERAL: An elderly lady lying in bed. VITAL SIGNS: Blood pressure 179/90, heart rate 89, respiratory rate 20, temperature 98.4. HEENT: Normocephalic, atraumatic, positive pallor. NECK: Supple, no JVD. LUNGS: Bilateral equal air entry, bilateral equal expansion. CARDIAC: S1, S2, regular rate and rhythm, no murmur, no rub. ABDOMEN: Distended, soft, bowel sounds present, positive PEG. EXTREMITIES: 1+ pitting edema of the lower extremities. INTAKE AND OUTPUT: Not charted. LABORATORY DATA WBC 7.9, hemoglobin 10, hematocrit 33, platelets 420. Sodium 142, potassium 4.4, chloride 112, CO2 of 23, BUN 35, creatinine 1.9, glucose 104, calcium 9.4, hemoglobin A1c 6.5, AST 13, ALT 15, albumin 3.2. PTH 70. Urine culture; VRE. Chest x-ray; no acute disease. CURRENT MEDICATIONS: Hydralazine 100 mg q.i.d., Cardizem CD 180 mg, Catapres 0.1 mg t.i.d., Coreg 25 mg b.i.d., losartan 100 mg, doxycycline 100 mg every 12 hours, Ecotrin 81 mg, Feosol 300 mg, folic acid 1 mg, isosorbide 20 mg every 8 hours, Lasix 40 mg IV daily, Lipitor, Maxipime, Protonix, and Zofran. ASSESSMENT: 1. Severe uncontrolled hypertension. 2. Acute kidney injury superimposed on chronic kidney disease, stage 4, resolved acute kidney injury. 3. Longstanding diabetes. 4. Hypertension. 5. Recent cerebrovascular accident. 6. Recent right nephrectomy for renal cell cancer. 7. Nephrotic range proteinuria. PLAN 1. Change Cardizem CD to 360 mg daily. 2. Continue hydralazine 100 mg q.i.d., continue Coreg 25 mg b.i.d., continue amlodipine 10 mg daily, clonidine 0.1 mg three times a day. 3. If blood pressure remains high may need to consider Catapres patch. 4. Avoid nephrotoxins. 5. Monitor fingersticks. 6. Will require renal replacement therapy in the future. Lou Moy MD [facility] # [id number]
[2019-03-25] MEDS ORDERED: Oxymetazoline 0.05% Nasal Spray (30 ml) NS ONE (23:15)
[2019-03-26] MEDS: Divalproex 125 mg EC Sprinkle Cap PO SCH ×3 (05:50→22:27)
[2019-03-26] MEDS: Pantoprazole 40 mg EC Tab PO SCH (05:57)
--- NOTE | 2019-03-26 07:51 | CP.PCM.PN ---
<Brian Veliz - Last Filed: 03/26/19 15:20> Subjective - Date & Time of Evaluation Date of Evaluation: 03/26/19 Time of Evaluation: 10:15 - Subjective Subjective: Infectious dx progress note: Pt seen and examined at bedside. No acute events overnight. States that her cough has improved. No fevers 12 Point ROS performed and neg other than stated above Objective - Vital Signs/Intake and Output Vital Signs (last 24 hours): Temp Pulse Resp BP Pulse Ox 98.4 F 89 20 189/91 H 95 03/25/19 17:05 03/25/19 17:12 03/25/19 17:05 03/25/19 21:10 03/25/19 17:05 Intake and Output: 03/26/19 03/26/19 06:59 18:59 Intake Total 120 Balance 120 - Medications Medications: Current Medications Acetaminophen (Tylenol 325mg Tab) 650 mg PO Q6 PRN PRN Reason: Fever >100.4 F Last Admin: 03/23/19 09:19 Dose: 650 mg Allopurinol (Zyloprim) 100 mg PO DAILY [facility] Last Admin: 03/25/19 10:11 Dose: 100 mg Aspirin (Ecotrin) 81 mg PO DAILY [facility] Last Admin: 03/25/19 10:07 Dose: 81 mg Atorvastatin Calcium (Lipitor) 80 mg PO DIN [facility] Last Admin: 03/25/19 17:13 Dose: 80 mg Carvedilol (Coreg) 25 mg PO BID [facility] Last Admin: 03/25/19 17:12 Dose: 25 mg Clonidine HCl (Catapres) 0.1 mg PO Q4H PRN PRN Reason: hypertension Last Admin: 03/24/19 12:04 Dose: 0.1 mg Clonidine HCl (Catapres) 0.1 mg PO TID [facility] Last Admin: 03/25/19 17:11 Dose: 0.1 mg Diltiazem HCl (Cardizem Cd) 360 mg PO DAILY [facility] Divalproex Sodium (Depakote Sprinkles) 125 mg PO Q8 [facility]; Protocol Last Admin: 03/26/19 05:50 Dose: Not Given Docusate Sodium (Colace) 200 mg PO DAILY PRN PRN Reason: Constipation Doxycycline Hyclate (Doryx) 100 mg PO Q12 [facility]; Protocol Stop: 03/28/19 22:01 Last Admin: 03/25/19 21:18 Dose: 100 mg Ferrous Sulfate (Feosol Liq) 300 mg PO DAILY [facility] Last Admin: 03/25/19 10:07 Dose: 300 mg Folic Acid (Folic Acid) 1 mg PO DAILY [facility] Last Admin: 03/25/19 10:08 Dose: 1 mg Furosemide (Lasix) 40 mg IVP DAILY [facility] Last Admin: 03/25/19 10:09 Dose: 40 mg Heparin Sodium (Porcine) (Heparin) 5,000 units SC Q8 [facility]; Protocol Last Admin: 03/26/19 05:50 Dose: Not Given Hydralazine HCl (Apresoline) 100 mg PO QID [facility] Last Admin: 03/25/19 21:10 Dose: 100 mg Cefepime HCl (Maxipime 1gm) 1 gm in 100 mls @ 100 mls/hr IVPB Q12 [facility]; Protocol Stop: 03/29/19 10:01 Last Admin: 03/25/19 21:18 Dose: 100 mls/hr Insulin Human Regular (Humulin R Med) 0 units SC ACHS [facility]; Protocol Last Admin: 03/25/19 22:25 Dose: Not Given Isosorbide Mononitrate (Ismo) 20 mg PO Q8 [facility] Last Admin: 03/26/19 05:57 Dose: 20 mg Lactobacillus Acidophilus (Bacid Acidophilus) 1 cap PO Q12 [facility] Last Admin: 03/25/19 21:18 Dose: 1 cap Lidocaine (Lidoderm) 1 ea TD DAILY [facility] Last Admin: 03/25/19 10:10 Dose: 1 ea Losartan Potassium (Cozaar) 100 mg PO DAILY [facility] Last Admin: 03/25/19 14:13 Dose: 100 mg Multivitamins (Thera Tab) 1 tab PO 0800 [facility] Last Admin: 03/25/19 10:10 Dose: 1 tab Ondansetron HCl (Zofran Tab) 4 mg PO Q6H PRN PRN Reason: Nausea/Vomiting Oxycodone/Acetaminophen (Percocet 5/325 Mg Tab) 1 tab PO Q6H PRN PRN Reason: Pain, moderate (4-7) Stop: 03/26/19 11:28 Last Admin: 03/24/19 09:04 Dose: 1 tab Pantoprazole Sodium (Protonix Ec Tab) 40 mg PO 0600 [facility] Last Admin: 03/26/19 05:57 Dose: 40 mg Promethazine HCl/Dextromethorphan (Phenergan Dm Syrup) 5 ml PO Q8 PRN PRN Reason: Cough Last Admin: 03/24/19 10:30 Dose: 5 ml - Labs Labs: 03/25/19 08:00 03/25/19 08:00 PT 12.6 SECONDS (9.4-12.5) H 03/21/19 12:00 INR 1.12 03/21/19 12:00 APTT 31.9 Seconds (26.9-38.3) 03/21/19 12:00 - Constitutional Appears: No Acute Distress - Eye Exam Eye Exam: EOMI - Respiratory Exam Respiratory Exam: Clear to Ausculation Bilateral. absent: Wheezes - Cardiovascular Exam Cardiovascular Exam: REGULAR RHYTHM, +S1, +S2 - GI/Abdominal Exam GI & Abdominal Exam: Soft. absent: Tenderness - Extremities Exam Extremities Exam: absent: Calf Tenderness - Neurological Exam Neurological Exam: Alert, Awake - Psychiatric Exam Psychiatric exam: Normal Mood Assessment and Plan - Assessment and Plan (Free Text) Assessment: Severe sepsis secondary to right lower lobe HCAP Urinary tract infection with VRE Acute on chronic kidney disease Hyperkalemia Anemia S/P 2 units PRBC History of heart failure COPD CVA Diabetic type II Left eye blindness Obesity HTN UTI - with VRE - now symptomatic, will start Linezolid PO for 3 days. Continue cefepime day 5 and doxycycline day 5, upon d/c she can go with PO doxy 100mg BID for 5 days Follow-up septic work-up - neg thus far F/u card recs regarding HTN Procalcitonin neg Continue to monitor for any changes Case and plan to be reviewed and discussed with Dr. Luna <Garcia Luna - Last Filed: 03/26/19 22:47> Objective - Vital Signs/Intake and Output Vital Signs (last 24 hours): Temp Pulse Resp BP Pulse Ox 98.2 F 88 20 190/88 H 98 03/26/19 16:56 03/26/19 22:25 03/26/19 16:56 03/26/19 22:25 03/26/19 16:56 - Medications Medications: Current Medications Acetaminophen (Tylenol 325mg Tab) 650 mg PO Q6 PRN PRN Reason: Fever >100.4 F Last Admin: 03/26/19 19:56 Dose: 650 mg Allopurinol (Zyloprim) 100 mg PO DAILY [facility] Last Admin: 03/26/19 10:01 Dose: 100 mg Aspirin (Ecotrin) 81 mg PO DAILY [facility] Last Admin: 03/26/19 10:00 Dose: 81 mg Atorvastatin Calcium (Lipitor) 80 mg PO DIN [facility] Last Admin: 03/26/19 18:04 Dose: 80 mg Carvedilol (Coreg) 25 mg PO BID [facility] Last Admin: 03/26/19 18:04 Dose: 25 mg Clonidine HCl (Catapres) 0.1 mg PO Q4H PRN PRN Reason: hypertension Last Admin: 03/24/19 12:04 Dose: 0.1 mg Clonidine HCl (Catapres-Tts2 0.2 Mg/24 Hr) 1 patch TD Q7D@1000 [facility] Last Admin: 03/26/19 11:47 Dose: 1 patch Diltiazem HCl (Cardizem Cd) 360 mg PO DAILY [facility] Last Admin: 03/26/19 09:59 Dose: 360 mg Divalproex Sodium (Depakote Sprinkles) 125 mg PO Q8 [facility]; Protocol Last Admin: 03/26/19 22:27 Dose: 125 mg Docusate Sodium (Colace) 200 mg PO DAILY PRN PRN Reason: Constipation Doxycycline Hyclate (Doryx) 100 mg PO Q12 [facility]; Protocol Stop: 03/28/19 22:01 Last Admin: 03/26/19 22:27 Dose: 100 mg Ferrous Sulfate (Feosol Liq) 300 mg PO DAILY [facility] Last Admin: 03/26/19 10:00 Dose: 300 mg Folic Acid (Folic Acid) 1 mg PO DAILY [facility] Last Admin: 03/26/19 10:00 Dose: 1 mg Furosemide (Lasix) 40 mg IVP DAILY [facility] Last Admin: 03/26/19 10:00 Dose: 40 mg Heparin Sodium (Porcine) (Heparin) 5,000 units SC Q8 [facility]; Protocol Last Admin: 03/26/19 22:27 Dose: 5,000 units Hydralazine HCl (Apresoline) 100 mg PO QID [facility] Last Admin: 03/26/19 22:25 Dose: 50 mg Cefepime HCl (Maxipime 1gm) 1 gm in 100 mls @ 100 mls/hr IVPB Q12 [facility]; Protocol Stop: 03/29/19 10:01 Last Admin: 03/26/19 22:30 Dose: 100 mls/hr Insulin Human Regular (Humulin R Med) 0 units SC ACHS [facility]; Protocol Last Admin: 03/26/19 22:29 Dose: Not Given Isosorbide Mononitrate (Ismo) 20 mg PO Q8 [facility] Last Admin: 03/26/19 22:30 Dose: 20 mg Lactobacillus Acidophilus (Bacid Acidophilus) 1 cap PO Q12 [facility] Last Admin: 03/26/19 22:26 Dose: 1 cap Lidocaine (Lidoderm) 1 ea TD DAILY [facility] Last Admin: 03/26/19 10:01 Dose: 1 ea Linezolid (Zyvox) 600 mg PO BID [facility]; Protocol Stop: 03/29/19 18:01 Last Admin: 03/26/19 18:04 Dose: 600 mg Losartan Potassium (Cozaar) 100 mg PO DAILY [facility] Last Admin: 03/26/19 10:00 Dose: 100 mg Multivitamins (Thera Tab) 1 tab PO 0800 [facility] Last Admin: 03/26/19 10:01 Dose: 1 tab Ondansetron HCl (Zofran Tab) 4 mg PO Q6H PRN PRN Reason: Nausea/Vomiting Pantoprazole Sodium (Protonix Ec Tab) 40 mg PO 0600 [facility] Last Admin: 03/26/19 05:57 Dose: 40 mg Promethazine HCl/Dextromethorphan (Phenergan Dm Syrup) 5 ml PO Q8 PRN PRN Reason: Cough Last Admin: 03/24/19 10:30 Dose: 5 ml - Labs Labs: 03/25/19 08:00 03/25/19 08:00 PT 12.6 SECONDS (9.4-12.5) H 03/21/19 12:00 INR 1.12 03/21/19 12:00 APTT 31.9 Seconds (26.9-38.3) 03/21/19 12:00 Attending/Attestation - Attestation I have personally seen and examined this patient.: Yes I have fully participated in the care of the patient.: Yes I have reviewed all pertinent clinical information, including history, physical exam and plan: Yes
[2019-03-26] MEDS: Insulin Reg-MEDIUM-Coverage SC SCH ×4 (08:14→22:29)
--- NOTE | 2019-03-26 08:29 | PN ---
DATE: 03/26/2019 PULMONARY NOTE SUBJECTIVE: The patient appears very comfortable this morning. She is not short of breath at rest. OBJECTIVE: VITALS: Temperature is 98.4, pulse 89, respirations 18, last blood pressure recorded 189/91. Oxygen saturation on room air - 95%. HEENT: Normocephalic, atraumatic. No JVD. CARDIOVASCULAR: Positive S1, S2. No S3 gallop. LUNGS: Minimal/less crackles - right base. Otherwise, clear. EXTREMITIES: Mild edema. No cyanosis, no clubbing. Calves are nontender to palpation. GASTROINTESTINAL: Abdomen is soft, nontender, and nondistended. Bowel sounds are positive. There is a feeding tube in place. SKIN: No acute rash. NEUROLOGIC: Exam limited at the present time. IMPRESSION: 1. Right lower lobe pneumonia. 2. Anemia. 3. Renal insufficiency. 4. Diabetes mellitus. 5. Hypertension. PLAN: The patient appears very comfortable this morning. She is not short of breath at rest. She does state to feeling better overall. I did discuss the case with the night nurse at length. The night nurse stated that the patient had an uneventful night. On physical exam, there is no bronchospasm noted. In addition, there is no significant alveolar arterial gradient. I will continue the aspiration precautions for now. The patient remains on antibiotic therapy - as per Infectious Disease. Temperatures have resolved. The leukocytosis has also resolved. Inputs by Cardiology and Renal are also noted. Clinical status of the patient is significantly improved - compared to the initial presentation. As noted in yesterday's assessment, the chest x-ray was also improved. I will discuss the above with Dr. Odell. Noe Velásquez MD MTDD
[2019-03-26] MEDS: Lactobacillus Acidophilus 500 MU Cap PO SCH ×2 (09:58→22:26)
[2019-03-26] MEDS: diltiaZEM 180 mg/24 Hours CD Cap PO SCH (09:59)
[2019-03-26] MEDS: Ferrous Sulfate 300 mg/5 mL Liq UD PO SCH (10:00)
[2019-03-26] MEDS: Lidocaine 5% Patch TD SCH (10:01)
[2019-03-26] MEDS: Multivitamin Therapeutic Tab PO SCH (10:01)
[2019-03-26] MEDS: Cefepime 1gm in NS 100ml 1 GM/100 ML BAG IVPB SCH ×2 (10:01→22:30)
--- NOTE | 2019-03-26 12:22 | PN ---
DATE: 03/26/2019 CARDIOLOGY FOLLOWUP SUBJECTIVE: The patient is feeling well. Blood pressure varies from 182 to 190 systolic. Her increased clonidine dosage has not been started yet. PHYSICAL EXAMINATION: NECK: Negative JVD. HEART: S1, S2. LUNGS: Without rales. EXTREMITIES: Without edema. LABORATORY DATA: Hemoglobin is 10. Glucose today is 107. IMPRESSION: 1. Accelerated hypertension. 2. Diabetes mellitus. 3. History of cerebrovascular accident. 4. Coronary artery disease. 5. Stable angina. 6. Infection is better. PLAN: Given these findings, from the patient's cardiac perspective, we will give an extra clonidine x2 today. We will increase her clonidine to 0.2 t.i.d. The patient has had a longstanding history of marked accelerated hypertension with blood pressures up to 240 for more than 10 years. Her pressure at 190 will be lowered with clonidine. From a cardiac perspective, she can be discharged today. We will follow her up as an outpatient as we been for the past 10 years treating her hypertension. Austin Duque MD
[2019-03-26] MEDS ORDERED: Oxycodone/Acetaminophen 2.5/325 mg Tab PO STA (20:38)
--- NOTE | 2019-03-26 21:38 | PN ---
DATE: 03/26/2019 SUBJECTIVE: The patient is seen lying in bed. She is awake. She is alert. She complains of headache. She denies any chest pain. She denies any palpitations. PHYSICAL EXAMINATION: GENERAL: Elderly lady, lying in bed. VITAL SIGNS: Blood pressure 162/69, heart rate 72, respiratory rate 20, temperature 98.2. HEENT: Normocephalic, atraumatic. Positive pallor. NECK: Supple. No JVD. LUNGS: Bilateral equal entry. Bilateral equal expansion. CARDIAC: S1, S2. Regular rate and rhythm. No murmur. No rub. ABDOMEN: Obese, distended, soft, nontender. Positive bowel sounds. Positive PEG. EXTREMITIES: 1+ pitting edema. INTAKE AND OUTPUT: Not charted. LABORATORY DATA: No new labs. Urine culture, VRE. CURRENT MEDICATIONS: Cardizem CD 360 mg, Catapres 0.2 mg t.i.d., Colace, Coreg 25 mg b.i.d., losartan 100 mg, doxycycline 100 mg every 12 hours, folic acid, isosorbide 20 mg every 8 hours, Lasix 40 mg IV daily, Lipitor 80, cefepime 1 g every 12 hours, Tylenol, Zofran, Zyvox. ASSESSMENT: 1. Severe hypertension. 2. Acute kidney injury superimposed on chronic kidney disease stage 3/4, resolved. 3. Coronary artery disease. 4. Recent cerebrovascular accident with left hemiparesis. 5. Recent right nephrectomy for renal cell carcinoma. PLAN: 1. Change clonidine to Catapres patch. 2. Continue Cardizem CD 360 mg. 3. Continue other antihypertensives. 4. Check labs in a.m. 5. Continue antibiotics for UTI. Lou Moy MD
[2019-03-27] MEDS: Divalproex 125 mg EC Sprinkle Cap PO SCH (06:46)
[2019-03-27] MEDS: Pantoprazole 40 mg EC Tab PO SCH (06:48)
[2019-03-27 06:49] VITALS: PULSE 77
[2019-03-27] MEDS: Promethazine DM 6.25 mg-15 mg/5 ml Syrup PO PRN (06:49)
[2019-03-27 09:33] VITALS: TEMP 98.4; O2SAT 96
[2019-03-27] MEDS: Ferrous Sulfate 300 mg/5 mL Liq UD PO SCH (10:06)
[2019-03-27] MEDS: Cefepime 1gm in NS 100ml 1 GM/100 ML BAG IVPB SCH (10:06)
[2019-03-27] MEDS: Lactobacillus Acidophilus 500 MU Cap PO SCH (10:07)
[2019-03-27] MEDS: diltiaZEM 180 mg/24 Hours CD Cap PO SCH (10:08)
[2019-03-27] MEDS: Lidocaine 5% Patch TD SCH (10:09)
[2019-03-27 10:10] VITALS: BP 175/22
[2019-03-27] MEDS: Insulin Reg-MEDIUM-Coverage SC SCH (10:14)
--- NOTE | 2019-03-27 20:37 | DS ---
HOSPITAL COURSE: She is going to be picked up today by her sister. For some reason that could not be arranged yesterday. The medicines were called into the pharmacy yesterday that she needed. I am hoping that she follows directions when she goes home and takes the doxycycline as ordered by Infectious Disease. Hopefully she will eat well. I know she has a feeding tube and she wants it to be taken out, but is has to be done correctly. MEDICATIONS: She is on aspirin, Apresoline, acidophilus, Cardizem, Catapres, Colace, Coreg, Cozaar, Depakote, doxycycline, Ecotrin, iron, folic acid, Imdur, Lasix, Lidoderm, Lipitor, Percocet as needed, promethazine, Protonix, multivitamin, Tylenol, Zofran, Zyloprim and Zyvox, which is now discontinued. PHYSICAL EXAMINATION GENERAL: She is alert, talking, eating well, which is good for her. VITAL SIGNS: She has a 98.4 temperature, 77 pulse, 125/72 blood pressure, which is actually quite good for her, 20 respiratory rate and 96% O2 sat on room air. HEAD: Atraumatic, normocephalic. HEART: Regular rate. LUNGS: With decreased breath sounds. ABDOMEN: Soft. EXTREMITIES: She had some difficulties with some weakness, she did well with therapy. LABORATORY DATA: A 7.9 white count, 10 hemoglobin, 32.8 hematocrit with 420 platelets. Last blood sugar was 111. Kidney functions came down to 35 and 1.9 which is good. ASSESSMENT AND PLAN: She is being discharged today. She was seen by Renal, Cardiology, Pulmonary and Infectious Disease. She had multiple issues. Hopefully she will do very well when she goes home. Mathieu Odell DO
--- NOTE | 2019-03-28 11:44 | PN ---
DATE: 03/27/2019 SUBJECTIVE: The patient is seen lying in bed. She is awake. She is alert. PHYSICAL EXAMINATION: VITAL SIGNS: Blood pressure 175/72, heart rate 77, respiratory rate 20 and temperature 98.4. HEENT: Normocephalic and atraumatic, positive pallor. NECK: Supple. No JVD. LUNGS: Bilateral equal air entry. No rales. EXTREMITIES: 1+ pitting edema. LABORATORY DATA: No new labs. MEDICATIONS: Hydralazine 100 four times a day, Cardizem 360, Catapres patch #2, Colace, Coreg 25 twice a day, losartan 100, doxycycline 100 every 12 hours, Feosol, folic acid, Isosorbide 20 every 8 hours, and Lasix 40 p.o. daily. ASSESSMENT: 1. Severe hypertension. 2. [id number] diabetes mellitus. 3. Resolved acute kidney injury. 4. Recent cerebrovascular accident. 5. Recent right nephrectomy. PLAN: 1. Continue current antihypertensives. 2. The patient needs to followup in the office. 3. Complete the empiric antibiotics as per ID recommendations. 4. Physical therapy. Lou Moy MD
--- NOTE | 2019-03-30 06:27 | PN ---
DATE: 03/27/2019 SUBJECTIVE: The patient is in bed, in no acute distress, doing well. This morning no fevers. PHYSICAL EXAMINATION: VITAL SIGNS: Temperature is 98, blood pressure is 175/70, respiratory rate of 18. HEENT: Unremarkable. NECK: Supple. LUNGS: Decreased breath sounds. HEART: Normal S1 and S2. ABDOMEN: Soft, nontender. LABORATORY DATA: Reviewed. White count is now at 7.9. Chemistries are noted. The patient's creatinine is at 1.9. Urinalysis is noted. Serology is negative. ASSESSMENT AND PLAN: This is a 68-year-old was admitted with severe sepsis secondary to right lower lobe healthcare associated pneumonia, vancomycin-resistant Enterococcus, asymptomatic urinary tract infection with acute kidney injury on top of chronic kidney injury and hyperkalemia, history of anemia, history of heart failure, chronic obstructive lung disease, cerebrovascular accident, diabetes, left eye blindness, obesity. The patient has complained of dysuria, will repeat the urinalysis. The patient is on p.o. doxycycline currently and p.o. Zyvox. We will treat with three days of p.o. Zyvox. We will repeat the urinalysis this morning; and urine culture since the initial urinalysis is not consistent with urinary tract infection. Garcia Luna MD
--- NOTE | 2019-03-30 08:40 | PN ---
DATE: 03/27/2019 PULMONARY PROGRESS NOTE SUBJECTIVE: The patient was seen and examined at bedside. She is sitting up in bed. She feels good. She is not on oxygen and she is afebrile. She is still on doxycycline orally. PHYSICAL EXAMINATION: VITAL SIGNS: Temperature is 98.2, pulse 77, respirations 20, pulse oxymetry 98% on room air and blood pressure 175/72. HEENT: Head is normocephalic and atraumatic. NECK: Supple with no jugular vein distention. PULMONARY: Lungs are clear to auscultation. CARDIOVASCULAR: S1 and S2. No S3, regular. GASTROINTESTINAL: Soft and nontender. No organomegaly. EXTREMITIES: No pedal edema. No cyanosis. NEUROLOGIC: No focal deficits. SKIN: No acute skin rash. LABORATORY DATA: There is no new laboratory data. ASSESSMENT: 1. Clinically resolving right lower lobe pneumonia. 2. Anemia. 3. Renal insufficiency. 4. Diabetes mellitus. PLAN: The patient appears very comfortable. She is not short of breath. She states she feel better overall. She is afebrile. Plans is to discharge to home per medical attending. Tae Pennington MD
--- NOTE | 2019-03-30 09:35 | DS ---
HOSPITAL COURSE: She is doing well enough to be discharged at this time. She has had right pneumonia. She has had severe hypertension, diabetes, urinary tract infection. She is going to be going home to the family. She is on lots of medications. She will be on Apresoline, Bacid, Cardizem, Catapres, Colace, Coreg, Cozaar, Depakote, Doryx, iron, folic acid, Ismo, Lasix, Lidoderm, Lipitor, Percocets, Phenergan, Protonix, , Tylenol, Zofran and Zyloprim. A 7.9 white count, 10 hemoglobin, 32.8 hematocrit with 420 platelets. A 107 is the blood sugar, 35 BUN and creatinine 0.9. She was seen by Cardiorenal Surgery, Cardiology and Infectious Disease. Hopefully we will get her home today. She will be on p.o. doxycycline 100 mg twice a day with the other medications. Mathieu Odell DO MTDIsaac
== END 2019-03-27 13:58 | disposition home health service (06) | DRG 871 ==
LOC: ED 11:53 → ERH 13:06 → 3RSO 15:22
PROVIDERS: ADMIT Family Medicine; ATTEND Family Medicine
PROC: 30233N1 Transfusion of Nonautologous Red Blood Cells into Peripheral Vein, Percutaneous Approach (ICD-10-PCS; principal; 2019-03-21)
DX: A41.9 Sepsis, unspecified organism (principal); J18.1 Lobar pneumonia, unspecified organism; I13.0 Hypertensive heart and chronic kidney disease with heart failure and stage 1 through stage 4 chronic kidney disease, or unspecified chronic kidney disease; J44.0 Chronic obstructive pulmonary disease with (acute) lower respiratory infection; N17.9 Acute kidney failure, unspecified; N18.4 Chronic kidney disease, stage 4 (severe); I69.354 Hemiplegia and hemiparesis following cerebral infarction affecting left non-dominant side; N25.81 Secondary hyperparathyroidism of renal origin; N39.0 Urinary tract infection, site not specified; E87.5 Hyperkalemia; D63.1 Anemia in chronic kidney disease; R65.20 Severe sepsis without septic shock; E11.22 Type 2 diabetes mellitus with diabetic chronic kidney disease; I69.391 Dysphagia following cerebral infarction; Y95 Nosocomial condition; I25.118 Atherosclerotic heart disease of native coronary artery with other forms of angina pectoris; I50.9 Heart failure, unspecified; E66.9 Obesity, unspecified; Z68.33 Body mass index [BMI] 33.0-33.9, adult; Z16.21 Resistance to vancomycin; E78.5 Hyperlipidemia, unspecified; F41.9 Anxiety disorder, unspecified; Z85.528 Personal history of other malignant neoplasm of kidney; Z93.1 Gastrostomy status; Z79.4 Long term (current) use of insulin; Z79.84 Long term (current) use of oral hypoglycemic drugs; Z79.899 Other long term (current) drug therapy; Z95.5 Presence of coronary angioplasty implant and graft; Z87.891 Personal history of nicotine dependence; Z90.5 Acquired absence of kidney; Z91.013 Allergy to seafood